=== PATIENT | male | born 1985 | race Caucasian/White ===

== ENCOUNTER 2018-09-19 22:41 | Emergency (ER) | payer SELFPAY ==
[~2018-09-19] VITALS: Ht 175.3 cm; Wt 96.2 kg
[2018-09-19 22:45] VITALS: BP 158/87
[2018-09-19] MEDS ORDERED: HYDR-3164 PO (23:58)
[2018-09-19] MEDS ORDERED: MUPI22OI2 TP (23:58)
[2018-09-19] MEDS ORDERED: CLIN300C8 PO (23:58)
--- NOTE | 2018-09-19 23:58 | PHYS DOC ---
Past Medical History Past Medical History: Other Additional Past Medical Histor: MRSA, staff infection of hand and right calf in past. Past Surgical History: Other Additional Past Surgical Histo: MRSA from Right calf debriedment Alcohol Use: Rarely Drug Use: Marijuana Adult General Chief Complaint Chief Complaint: ELBOW PROBLEM [facility] HPI Patient is a 33 year old [f__sex] who presents with [] Review of Systems Review of Systems Constitutional: Denies fever or chills [] Eyes: Denies change in visual acuity, redness, or eye pain [] HENT: Denies nasal congestion or sore throat [] Respiratory: Denies cough or shortness of breath [] Cardiovascular: No additional information not addressed in HPI [] GI: Denies abdominal pain, nausea, vomiting, bloody stools or diarrhea [] : Denies dysuria or hematuria [] Musculoskeletal: Denies back pain or joint pain [] Integument: Denies rash or skin lesions [] Neurologic: Denies headache, focal weakness or sensory changes [] Endocrine: Denies polyuria or polydipsia [] All other systems were reviewed and found to be within normal limits, except as documented in this note. Current Medications Current Medications Current Medications Medications (Trade) Dose Ordered Sig/John Start Time Stop Time Status Last Admin Dose Admin Acetaminophen/ Hydrocodone Bitart (Lortab 5/325) 1 tab 1X ONCE 09/20/18 00:00 09/20/18 00:01 DC Clindamycin HCl (Cleocin) 300 mg 1X ONCE 09/20/18 00:00 09/20/18 00:01 DC Neomycin/ Polymyxin/ Bacitracin (Triple Antibiotic Ointment) 1 pkt 1X ONCE 09/20/18 00:00 09/20/18 00:01 DC Allergies Allergies Allergies Coded Allergies Type Severity Reaction Last Updated Verified No Known Drug Allergies 09/19/18 No Physical Exam Physical Exam Constitutional: Well developed, well nourished, no acute distress, non-toxic appearance. [] HENT: Normocephalic, atraumatic, bilateral external ears normal, oropharynx moist, no oral exudates, nose normal. [] Eyes: PERRLA, EOMI, conjunctiva normal, no discharge. [] Neck: Normal range of motion, no tenderness, supple, no stridor. [] Cardiovascular:Heart rate regular rhythm, no murmur [] Lungs & Thorax: Bilateral breath sounds clear to auscultation [] Abdomen: Bowel sounds normal, soft, no tenderness, no masses, no pulsatile masses. [] Skin: Warm, dry, no erythema, no rash. [] Back: No tenderness, no CVA tenderness. [] Extremities: No tenderness, no cyanosis, no clubbing, ROM intact, no edema. [] Neurologic: Alert and oriented X 3, normal motor function, normal sensory function, no focal deficits noted. [] Psychologic: Affect normal, judgement normal, mood normal. [] Current Patient Data Vital Signs Vital Signs Date Time Temp Pulse Resp B/P (MAP) Pulse Ox O2 Delivery O2 Flow Rate FiO2 09/19/18 22:45 98.3 107 18 158/87 (110) 100 Room Air 98.3 EKG EKG [] Radiology/Procedures Radiology/Procedures [] Course & Med Decision Making Course & Med Decision Making Pertinent Labs and Imaging studies reviewed. (See chart for details) [] Dragon Disclaimer Dragon Disclaimer This electronic medical record was generated, in whole or in part, using a voice recognition dictation system. Departure Departure Impression: Primary Impression: Infection of left olecranon bursa Disposition: HOME, SELF-CARE Condition: STABLE Referrals: NO PCP (PCP) LAKEISHA BARRY MD Patient Instructions: Olecranon Bursitis, [id number] Scripts Hydrocodone/Apap 5-325 (NORCO 5-325 TABLET) 1 Each Tablet 1 TAB PO PRN Q6HRS PRN for PAIN, #14 TAB 0 Refills Prov: DANIEL KAPLAN DO 09/19/18 Mupirocin (MUPIROCIN OINTMENT) 22 Gm Oint...g. 1 PATO TP TID for WOUND CARE for 10 Days, #1 TUBE Prov: DANIEL KAPLAN DO 09/19/18 Clindamycin Hcl (CLINDAMYCIN HCL) 300 Mg Capsule 1 CAP PO TID for 7 Days, #21 CAP Prov: DANIEL KAPLAN DO 09/19/18 DANIEL KAPLAN DO Sep 19, 2018 23:58
[2018-09-20] MEDS ORDERED: CLINDAMYCIN HCL 150 MG CAPSULE. PO ONE
[2018-09-20] MEDS ORDERED: NEOMY/BACITR/POLYMYXIN OINT PACKET. TP ONE
[2018-09-20] MEDS ORDERED: HYDROcodone/APAP 5/325MG 1 TAB TABLET PO ONE
--- NOTE | 2018-09-20 02:30 | RAD ---
Indication: Elbow redness, swelling TECHNIQUE: 3 views of the right elbow COMPARISON: None Findings/ impression: No acute fracture or dislocation. No joint effusion. Soft tissue swelling is seen overlying the posterior elbow this may be secondary to cellulitis. Electronically signed by: Shivam Jha DO (09/20/2018 2:28 AM) [facility]
== END 2018-09-20 00:34 | disposition home or self-care (01) ==
LOC: ER 22:41
DX: M70.21 Olecranon bursitis, right elbow (principal)
CPT/HCPCS: 73080; 99284

== ENCOUNTER 2018-10-24 18:00 | Inpatient (IN) | payer SELFPAY ==
[~2018-10-24] VITALS: Ht 172.7 cm; Wt 90.3 kg
[~2018-10-24 18:00] MED LIST: CLIN300C8 PO; HYDR-3164 PO; MUPI22OI2 TP
[2018-10-24] MEDS ORDERED: PIPERACILLIN/TAZOBACTAM 3.375 GM in IV NORMAL SALINE 50ML 50 ML IV ONE (18:30)
[2018-10-24] MEDS ORDERED: PIP/TAZO PER PHARMACY MC PRN ×2 (18:30)
[2018-10-24] MEDS ORDERED: IV NORMAL SALINE 500ML BAG 500 ML IV ONE (18:30)
[2018-10-24] MEDS ORDERED: ACETAMINOPHEN 500 MG TABLET PO ONE (18:30)
[2018-10-24] MEDS ORDERED: IV NORMAL SALINE 1000ML BAG 1,000 ML IV ONE ×2 (18:30)
[2018-10-24 18:52] LABS: BASO % 0 % (0-3); EOS % 0 % (0-3); HEMATOCRIT 37.8 % (39.0-53.0); HEMOGLOBIN 13.1 g/dL (13.0-17.5); LYMPH # 1.2 x10^3/uL (1.0-4.8); LYMPH % 5 % (24-48); MEAN CORPUSCULAR HEMOGLOBIN 31 pg (25-35); MEAN CORPUSCULAR HGB CONC 35 g/dL (31-37); MEAN CORPUSCULAR VOLUME 91 fL (79-100); MONO # 1.5 x10^3/uL (0.0-1.1); MONO % 6 % (0-9); NEUT % 89 % (31-73); PLATELET COUNT 174 x10^3/uL (140-400); RED BLOOD COUNT 4.17 x10^6/uL (4.30-5.70); RED CELL DISTRIBUTION WIDTH 13.3 % (11.5-14.5); WHITE BLOOD COUNT 24.8 x10^3/uL (4.0-11.0)
[2018-10-24] MEDS ORDERED: VANCOMYCIN 2 GM in IV NORMAL SALINE 500ML BAG 500 ML IV ONE (19:00)
[2018-10-24] MEDS ORDERED: MORPHINE SULFATE 4 MG/ML VIAL. IV ONE (19:00)
[2018-10-24 19:10] LABS: CALCIUM 8.5 mg/dL (8.5-10.1); CREATININE 1.1 mg/dL (0.7-1.3); GFR 76.2; POTASSIUM 3.4 mmol/L (3.5-5.1)
[2018-10-24] MEDS ORDERED: IOHEXOL 300 MG/ML 100ML VIAL. IV ONE (19:15)
[2018-10-24 19:16] LABS: ALBUMIN 2.5 g/dL (3.4-5.0); ALBUMIN/GLOBULIN RATIO 0.6 (1.0-1.7); TOTAL PROTEIN 6.6 g/dL (6.4-8.2)
[2018-10-24] MEDS ORDERED: ONDANSETRON PF 4 MG/2 ML VIAL. IV ONE (19:30)
[2018-10-24] MEDS ORDERED: CONTRAST GIVEN. MC PRN (19:30)
--- NOTE | 2018-10-24 19:54 | RAD ---
CT SCAN OF THE ABDOMEN AND PELVIS WITH IV CONTRAST. History: Abdominal pain Comparison:None. Procedure: Contiguous axial images of the abdomen and pelvis were performed after the administration of 75 cc of Isovue 370 IV contrast and without oral contrast. CT Abdomen with contrast: Findings: Liver: Unremarkable Spleen: Unremarkable Pancreas: Unremarkable Adrenal Glands: Unremarkable Kidneys: Unremarkable There is no mass or lymphadenopathy. There is no free air. There is no free fluid. Impression: No acute findings. End Impression CT Pelvis with Contrast: Findings: The appendix is normal. There is prevertebral soft tissue edema. There is mild wall thickening of the sigmoid colon without surrounding inflammation. There is mild wall thickening of the urinary bladder. There is no free fluid. There is no lymphadenopathy. There is soft tissue edema seen to the right of the rectum and anal canal and the right and in the right parasagittal perineum. Impression: 1. Soft tissue edema on the right from the parasagittal perineum on the right upward along the right renal canal and rectum. There is no focal abscess seen. 2. Presacral soft tissue edema. 3. Mild wall thickening of the sigmoid colon could be secondary to inflammatory or infectious colitis. 4. Mild wall thickening of the urinary bladder could be urinary tract infection. PQRS Compliance Statement: One or more of the following individualized dose reduction techniques were utilized for this examination: 1. Automated exposure control 2. Adjustment of the mA and/or kV according to patient size 3. Use of iterative reconstruction technique Electronically signed by: Jesus Alberto Taylor III, MD (10/24/2018 7:51 PM) [facility]
[2018-10-24] MEDS ORDERED: ONDANSETRON PF 4 MG/2 ML VIAL. IV PRN ×2 (20:15→21:45)
[2018-10-24 20:51] LABS: % LYMPHS 6 % (24-48); % MONOS 6 % (0-10); % SEGS 88 % (35-66)
[2018-10-24 20:52] LABS: ANISOCYTOSIS SLIGHT; PLATELET CLUMP PRESENT; PLT ESTIMATE ADEQUATE (ADEQUATE); POLYCHROMASIA SLIGHT; SCHISTOCYTES OCC
[2018-10-24 20:53] LABS: BILIRUBIN,URINE NEGATIVE (NEG); CLARITY,URINE CLEAR; COLOR,URINE YELLOW; NITRITE,URINE NEGATIVE (NEG); PH,URINE 6.5; PROTEIN,URINE 30 mg/dL (NEG-TRACE)
[2018-10-24 21:00] LABS: BACTERIA,URINE FEW /HPF (0-FEW); SQUAMOUS EPITHELIAL CELL,UR OCC /LPF
[2018-10-24] MEDS: IV NORMAL SALINE 1000ML BAG 1,000 ML IV SCH (21:16)
[2018-10-24] MEDS: VANCOMYCIN PER PHARMACY MC PRN (21:26)
--- NOTE | 2018-10-24 21:29 | NUR ---
Pharmacy Vancomycin Dosing Note S:Consulted to monitor and dose vancomycin started 10/24/18. O:RICHAR CASPER is a 33 year old M with Abscess Sepsis . Height: 5 feet, 9 inches Weight: 90.164176 kg [place] Body Weight: 206.40 Adjusted Body Weight: 159.84 Dosing Weight: Actual Other Antibiotics: ZOSYN 10/24 - LABS: Last BUN: 11 Last Creatinine: 1.1 Creatinine Clearance: >100 mL/min Last WBC: 24.8 Last Procalcitonin: - Tmax (past 24 hours): 101.4 Microbiology: PENDING 10/24 I/O: Drug Levels: Last level: on at Last dose given 10/24/18 at 1930 Vancomycin Dosing: Loading Dose: 2000 mg x1 Dosing Weight: Actual Target Trough: 15-20 A: Based on: WEIGHT, CRCL>100 P: 1. INITIATE Vancomycin 1250 mg IV q12h AFTER 2000 MG LOADING DOSE 2. Follow up Trough level on 10/26/18 at 0700 3. Pharmacy will continue to monitor, follow and adjust therapy as needed. VERONICA FORBES [facility], 10/24/18 [id number]
[2018-10-24] MEDS ORDERED: PHENYLEPH/MINERAL OIL/PETROLAT RECTAL OINTMENT 57GM TUBE. RC PRN (21:30)
[2018-10-24] MEDS ORDERED: KETOROLAC 30 MG/ML VIAL. IV ONE (21:30)
[2018-10-24] MEDS ORDERED: POTASSIUM CHLORIDE 20 MEQ TABLET.ER. PO ONE (21:30)
[2018-10-24] MEDS ORDERED: NICOTINE 21MG PATCH. TD PRN (21:45)
--- NOTE | 2018-10-24 21:47 | PHYS DOC ---
Past Medical History Past Medical History: Other Additional Past Medical Histor: MRSA, staff infection of hand and right calf in past. Past Surgical History: Other Additional Past Surgical Histo: MRSA from Right calf debriedment Alcohol Use: Rarely Drug Use: Marijuana Adult General Chief Complaint Chief Complaint: FEVER [facility] HPI Patient is a 33 year old male presenting with buttock pain and fever sharp severe radiates diffusely because nausea no abdominal pain symptoms are moderate worsening with time onset 2 days ago no trauma has not used drugs in 15 years she tells me Review of Systems Review of Systems Constitutional: Eyes: Denies change in visual acuity, redness, or eye pain [] HENT: Denies nasal congestion or sore throat [] Respiratory: Denies cough or shortness of breath [] Cardiovascular: No additional information not addressed in HPI [] GI: pain [] Integument: Neurologic: Denies headache, focal weakness or sensory changes [] Endocrine: Denies polyuria or polydipsia [] All other systems were reviewed and found to be within normal limits, except as documented in this note. Current Medications Current Medications Current Medications Medications (Trade) Dose Ordered Sig/John Start Time Stop Time Status Last Admin Dose Admin Acetaminophen (Tylenol) 1,000 mg 1X ONCE 10/24/18 18:30 10/24/18 18:31 DC 10/24/18 19:12 1,000 MG Info (CONTRAST GIVEN -- Rx MONITORING) 1 each PRN DAILY PRN 10/24/18 19:30 10/26/18 19:29 Iohexol (Omnipaque 300 Mg/ml) 75 ml 1X ONCE 10/24/18 19:15 10/24/18 19:19 DC 10/24/18 19:37 75 ML Morphine Sulfate (Morphine Sulfate) 4 mg PRN Q2HR PRN 10/24/18 20:15 10/25/18 20:14 Ondansetron HCl (Zofran) 4 mg PRN Q8HRS PRN 10/24/18 20:15 10/25/18 20:14 Piperacillin Sod/ Tazobactam Sod (Zosyn Per Pharmacy) 1 each PRN DAILY PRN 10/24/18 18:30 Piperacillin Sod/ Tazobactam Sod 3.375 gm/Sodium Chloride 50 ml @ 100 mls/hr 1X ONCE 10/24/18 18:30 10/24/18 18:59 DC 10/24/18 18:45 100 MLS/HR Sodium Chloride 1,000 ml @ 125 mls/hr Q8H 10/24/18 20:09 10/25/18 20:08 10/24/18 21:16 125 MLS/HR Vancomycin HCl (Vanco Per Pharmacy) 1 each PRN DAILY PRN 10/24/18 18:30 10/24/18 21:26 1 EACH Vancomycin HCl 2 gm/Sodium Chloride 500 ml @ 250 mls/hr 1X ONCE 10/24/18 19:00 10/24/18 20:59 DC 10/24/18 19:34 250 MLS/HR Allergies Allergies Allergies Coded Allergies Type Severity Reaction Last Updated Verified No Known Drug Allergies 09/19/18 No Physical Exam Physical Exam Constitutional: Well developed, well nourished, no acute distress, non-toxic appearance. [] HENT: Normocephalic, atraumatic, bilateral external ears normal, oropharynx moist, no oral exudates, nose normal. [] Eyes: PERRLA, EOMI, conjunctiva normal, no discharge. [] Neck: Normal range of motion, no tenderness, supple, no stridor. [] Cardiovascular: Tachycardic no definite murmurs Lungs & Thorax: Bilateral breath sounds clear to auscultation [] Abdomen: Bowel sounds normal, soft, no tenderness, no masses, no pulsatile masses. [] Skin: There is a large area probably 15 cm are bigger from the superior cleft of the buttock unilaterally indurated very tender warm there is some drainage noted it does appear to light just adjacent to involve the edge of the anus and it extends just to the perineum but really no significant induration of the perineum itself no scrotal tenderness Back: No tenderness, no CVA tenderness. [] Extremities: No tenderness, no cyanosis, no clubbing, ROM intact, no edema. [] Neurologic: Alert and oriented X 3, normal motor function, normal sensory function, no focal deficits noted. [] Psychologic: Affect normal, judgement normal, mood normal. [] Current Patient Data Vital Signs Vital Signs Date Time Temp Pulse Resp B/P (MAP) Pulse Ox O2 Delivery O2 Flow Rate FiO2 10/24/18 20:30 121 18 116/63 (80) 99 10/24/18 19:33 Room Air 10/24/18 18:13 101.4 101.4 Lab Values Laboratory Tests Test 10/24/18 18:33 White Blood Count 24.8 x10^3/uL (4.0-11.0) H Red Blood Count 4.17 x10^6/uL (4.30-5.70) L Hemoglobin 13.1 g/dL (13.0-17.5) Hematocrit 37.8 % (39.0-53.0) L Mean Corpuscular Volume 91 fL (79-100) Mean Corpuscular Hemoglobin 31 pg (25-35) Mean Corpuscular Hemoglobin Concent 35 g/dL (31-37) Red Cell Distribution Width 13.3 % (11.5-14.5) Platelet Count 174 x10^3/uL (140-400) Neutrophils (%) (Auto) 89 % (31-73) H Lymphocytes (%) (Auto) 5 % (24-48) L Monocytes (%) (Auto) 6 % (0-9) Eosinophils (%) (Auto) 0 % (0-3) Basophils (%) (Auto) 0 % (0-3) Neutrophils # (Auto) 22.0 x10^3uL (1.8-7.7) H Lymphocytes # (Auto) 1.2 x10^3/uL (1.0-4.8) Monocytes # (Auto) 1.5 x10^3/uL (0.0-1.1) H Eosinophils # (Auto) 0.0 x10^3/uL (0.0-0.7) Basophils # (Auto) 0.0 x10^3/uL (0.0-0.2) Segmented Neutrophils % 88 % (35-66) H Lymphocytes % 6 % (24-48) L Monocytes % 6 % (0-10) Platelet Estimate Adequate (ADEQUATE) Platelet Clumps, EDTA Present Polychromasia Slight Anisocytosis Slight Schistocytes Occ Sodium Level 133 mmol/L (136-145) L Potassium Level 3.4 mmol/L (3.5-5.1) L Chloride Level 97 mmol/L (98-107) L Carbon Dioxide Level 26 mmol/L (21-32) Anion Gap 10 (6-14) Blood Urea Nitrogen 11 mg/dL (8-26) Creatinine 1.1 mg/dL (0.7-1.3) Estimated GFR (Cockcroft-Gault) 76.2 BUN/Creatinine Ratio 10 (6-20) Glucose Level 142 mg/dL (70-99) H Lactic Acid Level 1.7 mmol/L (0.4-2.0) Calcium Level 8.5 mg/dL (8.5-10.1) Total Bilirubin 1.0 mg/dL (0.2-1.0) Aspartate Amino Transferase (AST) 34 U/L (15-37) Alanine Aminotransferase (ALT) 32 U/L (16-63) Alkaline Phosphatase 117 U/L (46-116) H Total Protein 6.6 g/dL (6.4-8.2) Albumin 2.5 g/dL (3.4-5.0) L Albumin/Globulin Ratio 0.6 (1.0-1.7) L Laboratory Tests 10/24/18 18:33 Laboratory Tests 10/24/18 18:33 EKG EKG []EKG shows a sinus tachycardia rate 1:30 no acute ischemic changes noted Radiology/Procedures Radiology/Procedures [] Impressions: Impression: 1. Soft tissue edema on the right from the parasagittal perineum on the right upward along the right renal canal and rectum. There is no focal abscess seen. 2. Presacral soft tissue edema. 3. Mild wall thickening of the sigmoid colon could be secondary to inflammatory or infectious colitis. 4. Mild wall thickening of the urinary bladder could be urinary tract infection. RS Compliance Statement: One or more of the following individualized dose reduction techniques were utilized for this examination: 1. Automated exposure control 2. Adjustment of the mA and/or kV according to patient size 3. Use of iterative reconstruction technique Electronically signed by: Mara Barnes III, MD (10/24/2018 7:51 PM) [facility] DICTATED and SIGNED BY: MARA BARNES III, MD DATE: 10/24/181950 Course & Med Decision Making Course & Med Decision Making Pertinent Labs and Imaging studies reviewed. (See chart for details) []Lactic acid normal blood pressure remained stable in the emergency room patient did have sores criteria and sepsis we gave 30 ml/kg iv fluids (including the abx ), we give broad-spectrum antibiotics. CT scan showed no definite abscess. Due to clinical picture did speak with Dr. Eubanks on the telephone plan for nothing by mouth after midnight. I spoke with Dr. lassiter plan to admit to the hospital for his service for treatment of severe cellulitis. At this point in time there is no clinical evidence of [place] gangrene. Nikita Disclaimer Rud[place]on Disclaimer This electronic medical record was generated, in whole or in part, using a voice recognition dictation system. Departure Departure Impression: Primary Impression: Cellulitis Additional Impression: Sepsis Disposition: ADMITTED INPATIENT Admitting Physician: EVITA Condition: STABLE Referrals: NO PCP (PCP) Date and Time of Reassessment Date: Oct 24, 2018 Time: 20:10 Fluid Challenge Is the fluid challenge complet: No IBW Target Volume Used: No BMI > 30: No Vital Signs Vital Signs: Vital Signs Date Time Temp Pulse Resp B/P (MAP) Pulse Ox O2 Delivery O2 Flow Rate FiO2 10/24/18 20:30 121 18 116/63 (80) 99 10/24/18 19:33 Room Air 10/24/18 18:13 101.4 101.4 Temperature Source: Oral Respirations Respiratory Effort: Normal Cardiovascular Pulse Rhythm: Regular Heart: Not examined Lung Sounds Breath Sounds: Clear Capillary Refil Capillary Refill: Rt Hand < 3 seconds Peripheral Pulse Pulse Location: Radial Pulse Strength: Normal (2+) Pulse Assessment Method: Monitor Integumentary Skin: Warm, Dry Skin Moisture: Moist Problem Qualifiers FLORECITA JERNIGAN MD Oct 24, 2018 21:47
[2018-10-24 22:22] VITALS: BP 112/44
--- NOTE | 2018-10-24 23:07 | PDOC1 ---
History and Physical Date of Admission Date of Admission DATE: 10/24/18 TIME: 23:06 Identification/Chief Complaint Chief Complaint buttock pain Source Source: Chart review, Patient History of Present Illness History of Present Illness Mr. Sharp, is a 33 year old male presenting with 3 days of worsening buttock pain. he thought that the pain would go away and has now worsened. and now he had a fever and now the pain is sharp and severe. 10/10 with movement and radiates diffusely. because nausea no abdominal pain symptoms are moderate worsening. he has been sober for some time, prior IV drug use. 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 Past Medical History Cardiovascular: No pertinent hx Pulmonary: No pertinent hx Psych: Anxiety, Addictions, Other Rheumatologic: No pertinent hx Infectious disease: No pertinent hx Past Surgical History Past Surgical History: No pertinent history Family History Family History: No Significant Social History Smoke: <1 pack per day ALCOHOL: social Drugs: None Current Medications Current Medications Current Medications Sodium Chloride 1,000 ml @ 1,000 mls/hr 1X ONCE IV Last administered on 10/24/18at 18:40; Start 10/24/18 at 18:30; Stop 10/24/18 at 19:29; Status DC Sodium Chloride 1,000 ml @ 1,000 mls/hr 1X ONCE IV Last administered on 10/24/18at 18:44; Start 10/24/18 at 18:30; Stop 10/24/18 at 19:29; Status DC Piperacillin Sod/ Tazobactam Sod (Zosyn Per Pharmacy) 1 each PRN DAILY PRN MC SEE COMMENTS; Start 10/24/18 at 18:30; Status UNV Sodium Chloride 500 ml @ 500 mls/hr 1X ONCE IV Last administered on 10/24/18at 19:13; Start 10/24/18 at 18:30; Stop 10/24/18 at 19:29; Status DC Piperacillin Sod/ Tazobactam Sod (Zosyn Per Pharmacy) 1 each PRN DAILY PRN MC SEE COMMENTS; Start 10/24/18 at 18:30 Vancomycin HCl (Vanco Per Pharmacy) 1 each PRN DAILY PRN MC SEE COMMENTS Last administered on 10/24/18at 21:26; Start 10/24/18 at 18:30 Acetaminophen (Tylenol) 1,000 mg 1X ONCE PO Last administered on 10/24/18 19:12; Start 10/24/18 at 18:30; Stop 10/24/18 at 18:31; Status DC Vancomycin HCl 2 gm/Sodium Chloride 500 ml @ 250 mls/hr 1X ONCE IV Last administered on 10/24/18at 19:34; Start 10/24/18 at 19:00; Stop 10/24/18 at 20:59; Status DC Piperacillin Sod/ Tazobactam Sod 3.375 gm/Sodium Chloride 50 ml @ 100 mls/hr 1X ONCE IV Last administered on 10/24/18at 18:45; Start 10/24/18 at 18:30; Stop 10/24/18 at 18:59; Status DC Morphine Sulfate (Morphine Sulfate) 6 mg 1X ONCE IV Last administered on 10/24/18 19:12; Start 10/24/18 at 19:00; Stop 10/24/18 at 19:01; Status DC Iohexol (Omnipaque 300 Mg/ml) 75 ml 1X ONCE IV Last administered on 10/24/18at 19:37; Start 10/24/18 at 19:15; Stop 10/24/18 at 19:19; Status DC Info (CONTRAST GIVEN -- Rx MONITORING) 1 each PRN DAILY PRN MC SEE COMMENTS; Start 10/24/18 at 19:30; Stop 10/26/18 at 19:29 Ondansetron HCl (Zofran) 4 mg 1X ONCE IV Last administered on 10/24/18at 19:33; Start 10/24/18 at 19:30; Stop 10/24/18 at 19:31; Status DC Ondansetron HCl (Zofran) 4 mg PRN Q8HRS PRN IV NAUSEA/VOMITING; Start 10/24/18 at 20:15; Stop 10/24/18 at 21:43; Status DC Morphine Sulfate (Morphine Sulfate) 4 mg PRN Q2HR PRN IV PAIN; Start 10/24/18 at 20:15; Stop 10/25/18 at 20:14 Sodium Chloride 1,000 ml @ 125 mls/hr Q8H IV Last administered on 10/24/18at 21:16; Start 10/24/18 at 20:09; Stop 10/25/18 at 20:08 Piperacillin Sod/ Tazobactam Sod 3.375 gm/Sodium Chloride 50 ml @ 100 mls/hr Q6HRS IV ; Start 10/25/18 at 00:00 Vancomycin HCl 1.25 gm/Sodium Chloride 250 ml @ 167 mls/hr Q12H IV ; Start at 07:30 Vancomycin HCl (Vancomycin Trough Level) 1 each 1X ONCE MC ; Start 10/26/18 at 07:00; Stop 10/26/18 at 07:01 Oxycodone/ Acetaminophen (Percocet 7.5/ 325) 1 tab PRN Q4HRS PRN PO PAIN; Start 10/24/18 at 21:30 Potassium Chloride (Klor-Con) 20 meq 1X ONCE PO ; Start 10/24/18 at 21:30; Stop 10/24/18 at 21:32; Status DC Ketorolac Tromethamine (Toradol 30mg Vial) 30 mg 1X ONCE IV ; Start 10/24/18 at 21:30; Stop 10/24/18 at 21:32; Status DC Phenyleph/Shark Oil/Min Oil/Petrol (Preparation H) 1 luiz PRN QID PRN RC RECTAL PAIN; Start 10/24/18 at 21:30 Nicotine Polacrilex (Nicorette Gum) 1 each PRN Q1HR PRN BC SMOKING CESSATION; Start 10/24/18 at 21:45 Nicotine (Nicoderm Cq 21mg) 1 patch PRN DAILY PRN TD SMOKING CESSATION; Start 10/24/18 at 21:45 Docusate Sodium (Colace) 100 mg DAILY PO ; Start 10/25/18 at 09:00 Polyethylene Glycol (miraLAX PACKET) 17 gm DAILY PO ; Start 10/25/18 at 09:00 Ondansetron HCl (Zofran) 4 mg PRN Q8HRS PRN IV NAUSEA/VOMITING; Start 10/24/18 at 21:45 Diphenhydramine HCl (Benadryl) 25 mg PRN QHS PRN PO INSOMNIA; Start 10/24/18 at 21:45 Active Scripts Active [place] 5-325 Tablet (Acetaminophen/Hydrocodone Bitart) 1 Each Tablet 1 Tab PO PRN Q6HRS PRN Mupirocin Ointment (Mupirocin) 22 Gm Oint...g. 1 Luiz TP TID 10 Days Clindamycin Hcl 300 Mg Capsule 1 Cap PO TID 7 Days Allergies Allergies: Coded Allergies: No Known Drug Allergies (Unverified , 09/19/18) ROS General: YES: Chills, Fatigue, Malaise PSYCHOLOGICAL ROS: YES: Irritablity, Sleep disturbances; No: Anxiety, Behavioral Disorder, Concentration difficultie, Decreased libido, Depression, Disorientation, Hallucinations, Hostility, Memory difficulties, Mood Swings, Obsessive thoughts, Physical abuse, Sexual abuse, Suicidal ideation, Other Eyes: No Blurry vision, No Decreased vision, No Double vision, No Dry eyes, No Excessive tearing, No Eye Pain, No Itchy Eyes, No Loss of vision, No Photophobia, No Scotomata, No Uses contacts, No Uses glasses, No Other HEENT: No: Heacaches, Visual Changes, Hearing change, Nasal congestion, Nasal discharge, Oral lesions, Sinus pain, Sore Throat, Epistaxis, Sneezing, Snoring, Tinnitus, Vertigo, Vocal changes, Other Respiratory: No: Cough, Hemoptysis, Orthopnea, Pleuritic Pain, Shortness of breath, SOB with excertion, Sputum Changes, Stridor, Tachypnea, Wheezing, Other Cardiovascular: yes Edema (occassional feet); No Chest Pain, No Palpitations, No Orthopnea, No Paroxysmal Noc. Dyspnea, No Lt Headedness, No Other Gastrointestinal: Yes Nausea, Yes Abdominal Pain Genitourinary: No Dysuria, No Frequency, No Incontinence, No Hematuria, No Retention, No Discharge, No Urgency, No Pain, No Flank Pain, No Other, No , No , No , No , No , No , No Musculoskeletal: No Gait Disturbance, No Joint Pain, No Joint Stiffness, No Joint Swelling, No Muscle Pain, No Muscular Weakness, No Pain In:, No Swelling In:, No Other Neurological: No Behavorial Changes, No Bowel/Bladder ControlChng, No Confusion, No Dizziness, No Gait Disturbance, No Headaches, No Impaired Coord/balance, No Memory Loss, No Numbness/Tingling, No Seizures, No Speech Problems, No Tremors, No Visual Changes, No Weakness, No Other Skin: No Dry Skin, No Eczema, No Hair Changes, No Lumps, No Mole Changes, No Mottling, No Nail Changes, No Pruritus, No Rash, No Skin Lesion Changes, No Other, No Acne Physical Exam General: Alert, Oriented X3, Cooperative, mild distress HEENT: Atraumatic, PERRLA, Mucous membr. moist/pink Lungs: Normal air movement Heart: S1S2, no gallops, no murmurs Abdomen: Normal bowel sounds, Soft Rectal Exam: other (perirectal swelling, and induration tenderness to right medical cheeck, he can barely move to the side due to the pain) Extremities: No clubbing, No cyanosis, Normal pulses, Other (Tr pedal edema) Skin: No rashes, No significant lesion Neuro: Normal gait, Normal speech, Normal tone, Sensation intact, Reflexes 2+ Psych/Mental Status: Mental status NL Vitals Vitals Vital Signs Date Time Temp Pulse Resp B/P (MAP) Pulse Ox O2 Delivery O2 Flow Rate FiO2 10/24/18 22:22 99.4 119 20 112/44 (66) 98 Room Air 99.4 Labs Labs Laboratory Tests Test 10/24/18 18:33 10/24/18 20:44 White Blood Count 24.8 x10^3/uL (4.0-11.0) Red Blood Count 4.17 x10^6/uL (4.30-5.70) Hemoglobin 13.1 g/dL (13.0-17.5) Hematocrit 37.8 % (39.0-53.0) Mean Corpuscular Volume 91 fL (79-100) Mean Corpuscular Hemoglobin 31 pg (25-35) Mean Corpuscular Hemoglobin Concent 35 g/dL (31-37) Red Cell Distribution Width 13.3 % (11.5-14.5) Platelet Count 174 x10^3/uL (140-400) Neutrophils (%) (Auto) 89 % (31-73) Lymphocytes (%) (Auto) 5 % (24-48) Monocytes (%) (Auto) 6 % (0-9) Eosinophils (%) (Auto) 0 % (0-3) Basophils (%) (Auto) 0 % (0-3) Neutrophils # (Auto) 22.0 x10^3uL (1.8-7.7) Lymphocytes # (Auto) 1.2 x10^3/uL (1.0-4.8) Monocytes # (Auto) 1.5 x10^3/uL (0.0-1.1) Eosinophils # (Auto) 0.0 x10^3/uL (0.0-0.7) Basophils # (Auto) 0.0 x10^3/uL (0.0-0.2) Segmented Neutrophils % 88 % (35-66) Lymphocytes % 6 % (24-48) Monocytes % 6 % (0-10) Platelet Estimate Adequate (ADEQUATE) Platelet Clumps, EDTA Present Polychromasia Slight Anisocytosis Slight Schistocytes Occ Sodium Level 133 mmol/L (136-145) Potassium Level 3.4 mmol/L (3.5-5.1) Chloride Level 97 mmol/L (98-107) Carbon Dioxide Level 26 mmol/L (21-32) Anion Gap 10 (6-14) Blood Urea Nitrogen 11 mg/dL (8-26) Creatinine 1.1 mg/dL (0.7-1.3) Estimated GFR (Cockcroft-Gault) 76.2 BUN/Creatinine Ratio 10 (6-20) Glucose Level 142 mg/dL (70-99) Lactic Acid Level 1.7 mmol/L (0.4-2.0) Calcium Level 8.5 mg/dL (8.5-10.1) Total Bilirubin 1.0 mg/dL (0.2-1.0) Aspartate Amino Transf (AST/SGOT) 34 U/L (15-37) Alanine Aminotransferase (ALT/SGPT) 32 U/L (16-63) Alkaline Phosphatase 117 U/L (46-116) Total Protein 6.6 g/dL (6.4-8.2) Albumin 2.5 g/dL (3.4-5.0) Albumin/Globulin Ratio 0.6 (1.0-1.7) Urine Color Yellow Urine Clarity Clear Urine pH 6.5 Urine Specific [place] >=1.030 Urine Protein 30 mg/dL (NEG-TRACE) Urine Glucose (UA) Negative mg/dL (NEG) Urine Ketones (Stick) Negative mg/dL (NEG) Urine Blood Trace (NEG) Urine Nitrite Negative (NEG) Urine Bilirubin Negative (NEG) Urine Urobilinogen Dipstick 1.0 mg/dL (0.2 mg/dL) Urine Leukocyte Esterase Negative (NEG) Urine RBC 1-2 /HPF (0-2) Urine WBC 1-4 /HPF (0-4) Urine Squamous Epithelial Cells Occ /LPF Urine Bacteria Few /HPF (0-FEW) Laboratory Tests Test 10/24/18 18:33 10/24/18 20:44 White Blood Count 24.8 x10^3/uL (4.0-11.0) Red Blood Count 4.17 x10^6/uL (4.30-5.70) Hemoglobin 13.1 g/dL (13.0-17.5) Hematocrit 37.8 % (39.0-53.0) Mean Corpuscular Volume 91 fL (79-100) Mean Corpuscular Hemoglobin 31 pg (25-35) Mean Corpuscular Hemoglobin Concent 35 g/dL (31-37) Red Cell Distribution Width 13.3 % (11.5-14.5) Platelet Count 174 x10^3/uL (140-400) Neutrophils (%) (Auto) 89 % (31-73) Lymphocytes (%) (Auto) 5 % (24-48) Monocytes (%) (Auto) 6 % (0-9) Eosinophils (%) (Auto) 0 % (0-3) Basophils (%) (Auto) 0 % (0-3) Neutrophils # (Auto) 22.0 x10^3uL (1.8-7.7) Lymphocytes # (Auto) 1.2 x10^3/uL (1.0-4.8) Monocytes # (Auto) 1.5 x10^3/uL (0.0-1.1) Eosinophils # (Auto) 0.0 x10^3/uL (0.0-0.7) Basophils # (Auto) 0.0 x10^3/uL (0.0-0.2) Segmented Neutrophils % 88 % (35-66) Lymphocytes % 6 % (24-48) Monocytes % 6 % (0-10) Platelet Estimate Adequate (ADEQUATE) Platelet Clumps, EDTA Present Polychromasia Slight Anisocytosis Slight Schistocytes Occ Sodium Level 133 mmol/L (136-145) Potassium Level 3.4 mmol/L (3.5-5.1) Chloride Level 97 mmol/L (98-107) Carbon Dioxide Level 26 mmol/L (21-32) Anion Gap 10 (6-14) Blood Urea Nitrogen 11 mg/dL (8-26) Creatinine 1.1 mg/dL (0.7-1.3) Estimated GFR (Cockcroft-Gault) 76.2 BUN/Creatinine Ratio 10 (6-20) Glucose Level 142 mg/dL (70-99) Lactic Acid Level 1.7 mmol/L (0.4-2.0) Calcium Level 8.5 mg/dL (8.5-10.1) Total Bilirubin 1.0 mg/dL (0.2-1.0) Aspartate Amino Transf (AST/SGOT) 34 U/L (15-37) Alanine Aminotransferase (ALT/SGPT) 32 U/L (16-63) Alkaline Phosphatase 117 U/L (46-116) Total Protein 6.6 g/dL (6.4-8.2) Albumin 2.5 g/dL (3.4-5.0) Albumin/Globulin Ratio 0.6 (1.0-1.7) Urine Color Yellow Urine Clarity Clear Urine pH 6.5 Urine Specific [place] >=1.030 Urine Protein 30 mg/dL (NEG-TRACE) Urine Glucose (UA) Negative mg/dL (NEG) Urine Ketones (Stick) Negative mg/dL (NEG) Urine Blood Trace (NEG) Urine Nitrite Negative (NEG) Urine Bilirubin Negative (NEG) Urine Urobilinogen Dipstick 1.0 mg/dL (0.2 mg/dL) Urine Leukocyte Esterase Negative (NEG) Urine RBC 1-2 /HPF (0-2) Urine WBC 1-4 /HPF (0-4) Urine Squamous Epithelial Cells Occ /LPF Urine Bacteria Few /HPF (0-FEW) VTE Prophylaxis Ordered VTE Prophylaxis Devices: Yes VTE Pharmacological Prophylaxi: No Assessment/Plan Assessment/Plan sepsis cellulitis perirectal abcess tobacco use disorder severe malnutrition, with BMI 30 edema to feet at times, check echo admit YOSHI AVILA MD Oct 24, 2018 23:07
[2018-10-24] MEDS: oxyCODONE/APAP 7.5/325 1 TAB TABLET PO PRN (23:20)
[2018-10-24] MEDS: PIPERACILLIN/TAZOBACTAM 3.375 GM in IV NORMAL SALINE 50ML 50 ML IV SCH (23:20)
[2018-10-25] MEDS: MORPHINE SULFATE 4 MG/ML VIAL. IV PRN ×6 (00:37→20:04)
[2018-10-25] MEDS: NICOTINE POLACRILEX 2MG GUM PACKAGE of 12. BC PRN ×2 (01:39→11:58)
[2018-10-25 03:42] VITALS: BP 104/62
[2018-10-25] MEDS: IV NORMAL SALINE 1000ML BAG 1,000 ML IV SCH ×2 (04:03→12:09)
[2018-10-25 04:13] LABS: BASO # 0.1 x10^3/uL (0.0-0.2); BASO % 0 % (0-3); EOS # 0.1 x10^3/uL (0.0-0.7); EOS % 0 % (0-3); HEMATOCRIT 32.7 % (39.0-53.0); HEMOGLOBIN 11.3 g/dL (13.0-17.5); LYMPH # 1.7 x10^3/uL (1.0-4.8); LYMPH % 9 % (24-48); MEAN CORPUSCULAR HEMOGLOBIN 32 pg (25-35); MEAN CORPUSCULAR HGB CONC 35 g/dL (31-37); MEAN CORPUSCULAR VOLUME 92 fL (79-100); MONO # 1.6 x10^3/uL (0.0-1.1); MONO % 9 % (0-9); NEUT # 15.4 x10^3uL (1.8-7.7); NEUT % 82 % (31-73); PLATELET COUNT 158 x10^3/uL (140-400); RED BLOOD COUNT 3.57 x10^6/uL (4.30-5.70); RED CELL DISTRIBUTION WIDTH 13.4 % (11.5-14.5); WHITE BLOOD COUNT 18.8 x10^3/uL (4.0-11.0)
[2018-10-25] MEDS: oxyCODONE/APAP 7.5/325 1 TAB TABLET PO PRN (04:19)
[2018-10-25 04:43] LABS: CALCIUM 7.8 mg/dL (8.5-10.1); CREATININE 1.2 mg/dL (0.7-1.3); GFR 68.9; POTASSIUM 3.4 mmol/L (3.5-5.1)
[2018-10-25] MEDS: PIPERACILLIN/TAZOBACTAM 3.375 GM in IV NORMAL SALINE 50ML 50 ML IV SCH ×3 (05:43→19:13)
[2018-10-25 07:45] VITALS: BP 98/50
--- NOTE | 2018-10-25 08:53 | NUR ---
SW following pt for anticipated dc needs. Chart reviewed. Pt is from home and is self pay. No discharge recommendation noted at this time. Will continue to evaluate dc needs.
[2018-10-25] MEDS: POLYETHYLENE GLYCOL 3350 17 GM PACKET. PO SCH (08:57)
[2018-10-25] MEDS: DOCUSATE SODIUM 100 MG CAPSULE. PO SCH (08:57)
[2018-10-25] MEDS: VANCOMYCIN 1.25 GM in IV NORMAL SALINE 250ML 250 ML IV SCH ×2 (08:58→20:05)
--- NOTE | 2018-10-25 09:03 | PDOC2 ---
GI CONSULT Reason For Consult: Colitis, proctitis HPI: HPI: 33 y/o male admitted through ER w/ right buttock pain x 3-4 days. Similar issue in the past, thinks was treated w/ antibiotics. Has noted blood coming from skin int he area. Had one loose stool yesterday. Tried leftover Lortab from a previous shoulder injury. Labs noted WBC 24.8 (now 18.8), Hgb 13.1 (now 11.3). On CT: soft tissue edema on the right from the parasagittal perineum on the right upward along the right renal canal and rectum, presacral soft tissue edema, mild wall thickening of the sigmoid colon, and mild wall thickening of the urinary bladder. Denies reflux/heartburn, dysphagia, n/v, diarrhea, constipation, melena, and hematochezia. Prior to admission was not eating well for 2-3 days - attributes lack of appetite to fever and having buttock pain too intense to move. Currently has some right-sided abdominal discomfort. No previous EGD or colonoscopy. H/o Hep C - says has not pursued treatment due to lack of insurance. S/p cholecystectomy. No pancreas or PUD history. Asked about NSAID use - "yeah, I guess." Has asked RN to bring scheduled pain meds, has been NPO, surgical consult pending. PMH: PMH: MRSA, depression/anxiety, Hep C tonsillectomy Social History: Smoke: <1 pack per day ALCOHOL: occassional Drugs: Marijuana, Other (h/o IVDU) ROS: GEN: +fevers HEENT: Denies blurred vision, sore throat CV: Denies chest pain RESP: Denies shortness of air, cough GI: Per HPI : Denies hematuria, dysuria ENDO: Denies weight changes NEURO: Denies confusion, dizziness MSK: Denies weakness, joint pain/swelling SKIN: Denies jaundice, pruritus Vitals: Vitals: Vital Signs Date Time Temp Pulse Resp B/P (MAP) Pulse Ox O2 Delivery O2 Flow Rate FiO2 10/25/18 07:45 99.1 104 18 98/50 (66) 98 Room Air 99.1 Labs: Labs: Laboratory Tests Test 10/24/18 18:33 10/24/18 20:44 10/25/18 03:45 White Blood Count 24.8 x10^3/uL (4.0-11.0) 18.8 x10^3/uL (4.0-11.0) Red Blood Count 4.17 x10^6/uL (4.30-5.70) 3.57 x10^6/uL (4.30-5.70) Hemoglobin 13.1 g/dL (13.0-17.5) 11.3 g/dL (13.0-17.5) Hematocrit 37.8 % (39.0-53.0) 32.7 % (39.0-53.0) Mean Corpuscular Volume 91 fL (79-100) 92 fL (79-100) Mean Corpuscular Hemoglobin 31 pg (25-35) 32 pg (25-35) Mean Corpuscular Hemoglobin Concent 35 g/dL (31-37) 35 g/dL (31-37) Red Cell Distribution Width 13.3 % (11.5-14.5) 13.4 % (11.5-14.5) Platelet Count 174 x10^3/uL (140-400) 158 x10^3/uL (140-400) Neutrophils (%) (Auto) 89 % (31-73) 82 % (31-73) Lymphocytes (%) (Auto) 5 % (24-48) 9 % (24-48) Monocytes (%) (Auto) 6 % (0-9) 9 % (0-9) Eosinophils (%) (Auto) 0 % (0-3) 0 % (0-3) Basophils (%) (Auto) 0 % (0-3) 0 % (0-3) Neutrophils # (Auto) 22.0 x10^3uL (1.8-7.7) 15.4 x10^3uL (1.8-7.7) Lymphocytes # (Auto) 1.2 x10^3/uL (1.0-4.8) 1.7 x10^3/uL (1.0-4.8) Monocytes # (Auto) 1.5 x10^3/uL (0.0-1.1) 1.6 x10^3/uL (0.0-1.1) Eosinophils # (Auto) 0.0 x10^3/uL (0.0-0.7) 0.1 x10^3/uL (0.0-0.7) Basophils # (Auto) 0.0 x10^3/uL (0.0-0.2) 0.1 x10^3/uL (0.0-0.2) Segmented Neutrophils % 88 % (35-66) Lymphocytes % 6 % (24-48) Monocytes % 6 % (0-10) Platelet Estimate Adequate (ADEQUATE) Platelet Clumps, EDTA Present Polychromasia Slight Anisocytosis Slight Schistocytes Occ Sodium Level 133 mmol/L (136-145) 139 mmol/L (136-145) Potassium Level 3.4 mmol/L (3.5-5.1) 3.4 mmol/L (3.5-5.1) Chloride Level 97 mmol/L (98-107) 104 mmol/L (98-107) Carbon Dioxide Level 26 mmol/L (21-32) 27 mmol/L (21-32) Anion Gap 10 (6-14) 8 (6-14) Blood Urea Nitrogen 11 mg/dL (8-26) 11 mg/dL (8-26) Creatinine 1.1 mg/dL (0.7-1.3) 1.2 mg/dL (0.7-1.3) Estimated GFR (Cockcroft-Gault) 76.2 68.9 BUN/Creatinine Ratio 10 (6-20) Glucose Level 142 mg/dL (70-99) 111 mg/dL (70-99) Lactic Acid Level 1.7 mmol/L (0.4-2.0) Calcium Level 8.5 mg/dL (8.5-10.1) 7.8 mg/dL (8.5-10.1) Total Bilirubin 1.0 mg/dL (0.2-1.0) Aspartate Amino Transf (AST/SGOT) 34 U/L (15-37) Alanine Aminotransferase (ALT/SGPT) 32 U/L (16-63) Alkaline Phosphatase 117 U/L (46-116) Total Protein 6.6 g/dL (6.4-8.2) Albumin 2.5 g/dL (3.4-5.0) Albumin/Globulin Ratio 0.6 (1.0-1.7) Urine Color Yellow Urine Clarity Clear Urine pH 6.5 Urine Specific [place] >=1.030 Urine Protein 30 mg/dL (NEG-TRACE) Urine Glucose (UA) Negative mg/dL (NEG) Urine Ketones (Stick) Negative mg/dL (NEG) Urine Blood Trace (NEG) Urine Nitrite Negative (NEG) Urine Bilirubin Negative (NEG) Urine Urobilinogen Dipstick 1.0 mg/dL (0.2 mg/dL) Urine Leukocyte Esterase Negative (NEG) Urine RBC 1-2 /HPF (0-2) Urine WBC 1-4 /HPF (0-4) Urine Squamous Epithelial Cells Occ /LPF Urine Bacteria Few /HPF (0-FEW) Allergies: Coded Allergies: No Known Drug Allergies (Unverified , 09/19/18) Medications: Current Medications Medications (Trade) Dose Ordered Sig/John Route PRN Reason Start Time Stop Time Status Last Admin Dose Admin Sodium Chloride 1,000 ml @ 1,000 mls/hr 1X ONCE IV 10/24/18 18:30 10/24/18 19:29 DC 10/24/18 18:40 Sodium Chloride 1,000 ml @ 1,000 mls/hr 1X ONCE IV 10/24/18 18:30 10/24/18 19:29 DC 10/24/18 18:44 Sodium Chloride 500 ml @ 500 mls/hr 1X ONCE IV 10/24/18 18:30 10/24/18 19:29 DC 10/24/18 19:13 Vancomycin HCl (Vanco Per Pharmacy) 1 each PRN DAILY PRN MC SEE COMMENTS 10/24/18 18:30 10/24/18 21:26 Acetaminophen (Tylenol) 1,000 mg 1X ONCE PO 10/24/18 18:30 10/24/18 18:31 DC 10/24/18 19:12 Vancomycin HCl 2 gm/Sodium Chloride 500 ml @ 250 mls/hr 1X ONCE IV 10/24/18 19:00 10/24/18 20:59 DC 10/24/18 19:34 Piperacillin Sod/ Tazobactam Sod 3.375 gm/Sodium Chloride 50 ml @ 100 mls/hr 1X ONCE IV 10/24/18 18:30 10/24/18 18:59 DC 10/24/18 18:45 Morphine Sulfate (Morphine Sulfate) 6 mg 1X ONCE IV 10/24/18 19:00 10/24/18 19:01 DC 10/24/18 19:12 Iohexol (Omnipaque 300 Mg/ml) 75 ml 1X ONCE IV 10/24/18 19:15 10/24/18 19:19 DC 10/24/18 19:37 Ondansetron HCl (Zofran) 4 mg 1X ONCE IV 10/24/18 19:30 10/24/18 19:31 DC 10/24/18 19:33 Morphine Sulfate (Morphine Sulfate) 4 mg PRN Q2HR PRN IV PAIN 10/24/18 20:15 10/25/18 20:14 10/25/18 08:15 Sodium Chloride 1,000 ml @ 125 mls/hr Q8H IV 10/24/18 20:09 10/25/18 20:08 10/25/18 04:03 Piperacillin Sod/ Tazobactam Sod 3.375 gm/Sodium Chloride 50 ml @ 100 mls/hr Q6HRS IV 10/25/18 00:00 10/25/18 05:43 Vancomycin HCl 1.25 gm/Sodium Chloride 250 ml @ 167 mls/hr Q12H IV 10/25/18 07:30 10/25/18 08:58 Oxycodone/ Acetaminophen (Percocet 7.5/ 325) 1 tab PRN Q4HRS PRN PO PAIN 10/24/18 21:30 10/25/18 04:19 Potassium Chloride (Klor-Con) 20 meq 1X ONCE PO 10/24/18 21:30 10/24/18 21:32 DC 10/24/18 23:20 Ketorolac Tromethamine (Toradol 30mg Vial) 30 mg 1X ONCE IV 10/24/18 21:30 10/24/18 21:32 DC 10/24/18 23:21 Nicotine Polacrilex (Nicorette Gum) 1 each PRN Q1HR PRN BC SMOKING CESSATION 10/24/18 21:45 10/25/18 01:39 Imaging: Imaging: Echocardiogram <Conclusion> Left ventricle systolic function is mildly impaired. The Ejection Fraction is 40-45%. There is mild global hypokinesis of the left ventricle. CT A/P Impression: 1. Soft tissue edema on the right from the parasagittal perineum on the right upward along the right renal canal and rectum. There is no focal abscess seen. 2. Presacral soft tissue edema. 3. Mild wall thickening of the sigmoid colon could be secondary to inflammatory or infectious colitis. 4. Mild wall thickening of the urinary bladder could be urinary tract infection. PE: GEN: NAD, resting, keeps eyes closed HEENT: Atraumatic, PERRL LUNGS: CTAB HEART: tachycardic ABD: soft, quiet BS, tender epigastrium around to RLQ EXTREMITY: No edema SKIN: clammy, warm NEURO/PSYCH: A & O 3 A/P: A/P: Buttock pain, abd pain, fever Leukocytosis, normocytic anemia Abnormal CT - ?perirectal abscess CRC screen - average risk S/p cholecystectomy H/o Hep C -- Had one loose stool yesterday - monitor this and abdominal discomfort. Will confirm Hep C. Await surgical thoughts. Other per Dr. Richards. AMINA ALEXANDER Oct 25, 2018 09:03
[2018-10-25] MEDS: VANCOMYCIN PER PHARMACY MC PRN (09:15)
--- NOTE | 2018-10-25 09:40 | CARD ---
MR#: [id number] Date of Study: 10/25/2018 Ordering Physician: YOSHI AVILA, Referring Physician: YOSHI AVILA Tech: Shazia Cruz RDCS APPROVED REPORT EXAM: Two-dimensional and M-mode echocardiogram with Doppler and color Doppler. Other Information Quality : Good INDICATION Peripheral Edema 2D DIMENSIONS RVDd2.4 (2.9-3.5cm)Left Atrium(2D)3.2 (1.6-4.0cm) IVSd0.9 (0.7-1.1cm)Aortic Root(2D)2.9 (2.0-3.7cm) LVDd5.3 (3.9-5.9cm)LVOT Diameter2.0 (1.8-2.4cm) PWd1.0 (0.7-1.1cm)LVDs4.4 (2.5-4.0cm) FS (%) 17.2 %SV49.0 ml LVEF(%)45.0 (>50%) Aortic Valve AoV Peak Tae.136.9cm/sAoV VTI21.2cm AO Peak GR.7.5mmHgLVOT Peak Tae.85.8cm/s LVOT VTI 12.87cmAO Mean GR.5mmHg CIERRA (VMAX)1.17ea9UMK (VTI)1.88cm2 Mitral Valve MV E Ldkmvuni33.3cm/sMV DECEL [id number] MV A Zfjfzzvc41.0cm/sMV [id number] E/A Ratio1.5MVA (PHT)3.92cm2 TDI E/Lateral E'6.2 Pulmonary Vein S1 Qtgaahaq88.8cm/sD2 Mnuzvzja42.6cm/s LEFT VENTRICLE The left ventricle is normal size. There is normal left ventricular wall thickness. Left ventricle sy stolic function is mildly impaired. The Ejection Fraction is 40-45%. There is mild global hypokinesis of the left ventricle. Transmitral Doppler flow pattern is Grade I-abnormal relaxation pattern. RIGHT VENTRICLE The right ventricle is normal size. The right ventricular systolic function is normal. ATRIA The left atrium size is normal. The right atrium size is normal. The interatrial septum is intact wit h no evidence for an atrial septal defect or patent foramen ovale as noted on 2-D or Doppler imaging. AORTIC VALVE The aortic valve is calcified but opens well. Doppler and Color Flow revealed no significant aortic r egurgitation. There is no significant aortic valvular stenosis. MITRAL VALVE The mitral valve is normal in structure and function. There is no evidence of mitral valve prolapse. There is no mitral valve stenosis. Doppler and Color-flow revealed trace to mild mitral regurgitation . TRICUSPID VALVE The tricuspid valve is normal in structure and function. Doppler and Color Flow revealed no tricuspid valve regurgitation noted. There is no tricuspid valve stenosis. PULMONIC VALVE Doppler and Color Flow revealed mild pulmonic valvular regurgitation. There is no pulmonic valvular s tenosis. GREAT VESSELS The aortic root is normal in size. The ascending aorta is normal in size. The IVC is normal in size a nd collapses >50% with inspiration. PERICARDIAL EFFUSION There is no evidence of significant pericardial effusion. Critical Notification Critical Value: No <Conclusion> Left ventricle systolic function is mildly impaired. The Ejection Fraction is 40-45%. There is mild global hypokinesis of the left ventricle. Signed by : Bharat Hood, Electronically Approved : 10/25/2018 09:39:30
[2018-10-25 11:04] VITALS: BP 124/73
--- NOTE | 2018-10-25 11:23 | PDOC2 ---
ALLISON HERNANDEZ [employer] 10/25/18 1123: CONSULT Date of Consult Date of Consult DATE: 10/25/18 TIME: 11:14 Reason for Consult Reason for Consult: perirectal abscess Referring Physician Referring Physician: ER Identification/Chief Complaint Chief Complaint buttock pain Source Source: Chart review, Patient History of Present Illness Reason for Visit: Repots 3 days of gluteal pain, drainage, and fevers. Reports severe pain to area. Denies any constipation or diarrhea. Does have a history of previous skin infections. Previous IV drug use. Denies currently Past Medical History Cardiovascular: No pertinent hx Pulmonary: No pertinent hx Psych: Anxiety, Addictions, Other Rheumatologic: No pertinent hx Infectious disease: No pertinent hx Past Surgical History Past Surgical History: No pertinent history Family History Family History: No Significant Social History <1 pack per day ALCOHOL: social Drugs: None Current Medications Current Medications Current Medications Sodium Chloride 1,000 ml @ 1,000 mls/hr 1X ONCE IV Last administered on 10/24/18at 18:40; Start 10/24/18 at 18:30; Stop 10/24/18 at 19:29; Status DC Sodium Chloride 1,000 ml @ 1,000 mls/hr 1X ONCE IV Last administered on 10/24/18at 18:44; Start 10/24/18 at 18:30; Stop 10/24/18 at 19:29; Status DC Piperacillin Sod/ Tazobactam Sod (Zosyn Per Pharmacy) 1 each PRN DAILY PRN MC SEE COMMENTS; Start 10/24/18 at 18:30; Status UNV Sodium Chloride 500 ml @ 500 mls/hr 1X ONCE IV Last administered on 10/24/18at 19:13; Start 10/24/18 at 18:30; Stop 10/24/18 at 19:29; Status DC Piperacillin Sod/ Tazobactam Sod (Zosyn Per Pharmacy) 1 each PRN DAILY PRN MC SEE COMMENTS; Start 10/24/18 at 18:30 Vancomycin HCl (Vanco Per Pharmacy) 1 each PRN DAILY PRN MC SEE COMMENTS Last administered on 10/25/18at 09:15; Start 10/24/18 at 18:30 Acetaminophen (Tylenol) 1,000 mg 1X ONCE PO Last administered on 10/24/18at 19:12; Start 10/24/18 at 18:30; Stop 10/24/18 at 18:31; Status DC Vancomycin HCl 2 gm/Sodium Chloride 500 ml @ 250 mls/hr 1X ONCE IV Last administered on 10/24/18at 19:34; Start 10/24/18 at 19:00; Stop 10/24/18 at 20:59; Status DC Piperacillin Sod/ Tazobactam Sod 3.375 gm/Sodium Chloride 50 ml @ 100 mls/hr 1X ONCE IV Last administered on 10/24/18at 18:45; Start 10/24/18 at 18:30; Stop 10/24/18 at 18:59; Status DC Morphine Sulfate (Morphine Sulfate) 6 mg 1X ONCE IV Last administered on 10/24/18at 19:12; Start 10/24/18 at 19:00; Stop 10/24/18 at 19:01; Status DC Iohexol (Omnipaque 300 Mg/ml) 75 ml 1X ONCE IV Last administered on 10/24/18at 19:37; Start 10/24/18 at 19:15; Stop 10/24/18 at 19:19; Status DC Info (CONTRAST GIVEN -- Rx MONITORING) 1 each PRN DAILY PRN MC SEE COMMENTS; Start 10/24/18 at 19:30; Stop 10/26/18 at 19:29 Ondansetron HCl (Zofran) 4 mg 1X ONCE IV Last administered on 10/24/18at 19:33; Start 10/24/18 at 19:30; Stop 10/24/18 at 19:31; Status DC Ondansetron HCl (Zofran) 4 mg PRN Q8HRS PRN IV NAUSEA/VOMITING; Start 10/24/18 at 20:15; Stop 10/24/18 at 21:43; Status DC Morphine Sulfate (Morphine Sulfate) 4 mg PRN Q2HR PRN IV PAIN Last administered on 10/25/18at 08:15; Start 10/24/18 at 20:15; Stop 10/25/18 at 20:14 Sodium Chloride 1,000 ml @ 125 mls/hr Q8H IV Last administered on 10/25/18at 04:03; Start 10/24/18 at 20:09; Stop 10/25/18 at 20:08 Piperacillin Sod/ Tazobactam Sod 3.375 gm/Sodium Chloride 50 ml @ 100 mls/hr Q6HRS IV Last administered on 10/25/18at 05:43; Start 10/25/18 at 00:00 Vancomycin HCl 1.25 gm/Sodium Chloride 250 ml @ 167 mls/hr Q12H IV Last administered on 10/25/18at 08:58; Start 10/25/18 at 07:30 Vancomycin HCl (Vancomycin Trough Level) 1 each 1X ONCE MC ; Start 10/26/18 at 07:00; Stop 10/26/18 at 07:01 Oxycodone/ Acetaminophen (Percocet 7.5/ 325) 1 tab PRN Q4HRS PRN PO PAIN Last administered on 10/25/18at 04:19; Start 10/24/18 at 21:30 Potassium Chloride (Klor-Con) 20 meq 1X ONCE PO Last administered on 10/24/18at 23:20; Start 10/24/18 at 21:30; Stop 10/24/18 at 21:32; Status DC Ketorolac Tromethamine (Toradol 30mg Vial) 30 mg 1X ONCE IV Last administered on 10/24/18at 23:21; Start 10/24/18 at 21:30; Stop 10/24/18 at 21:32; Status DC Phenyleph/Shark Oil/Min Oil/Petrol (Preparation H) 1 jose roberto PRN QID PRN RC RECTAL PAIN; Start 10/24/18 at 21:30 Nicotine Polacrilex (Nicorette Gum) 1 each PRN Q1HR PRN BC SMOKING CESSATION Last administered on 10/25/18at 01:39; Start 10/24/18 at 21:45 Nicotine (Nicoderm Cq 21mg) 1 patch PRN DAILY PRN TD SMOKING CESSATION; Start 10/24/18 at 21:45 Docusate Sodium (Colace) 100 mg DAILY PO ; Start 10/25/18 at 09:00 Polyethylene Glycol (miraLAX PACKET) 17 gm DAILY PO ; Start 10/25/18 at 09:00 Ondansetron HCl (Zofran) 4 mg PRN Q8HRS PRN IV NAUSEA/VOMITING; Start 10/24/18 at 21:45 Diphenhydramine HCl (Benadryl) 25 mg PRN QHS PRN PO INSOMNIA; Start 10/24/18 at 21:45 Lactobacillus Rhamnosus (Culturelle) 1 cap BID PO ; Start 10/25/18 at 11:00 Active Scripts Active Allergies Allergies: Coded Allergies: No Known Drug Allergies (Unverified , 09/19/18) ROS General: YES: Chills, Other (+ fevers ) PSYCHOLOGICAL ROS: No: Anxiety, Depression Eyes: No Blurry vision, No Double vision HEENT: No: Heacaches, Sore Throat Hematological and Lymphatic: No: Bleeding Problems, Blood Clots Respiratory: No: Cough, Shortness of breath Cardiovascular: No Chest Pain, No Palpitations Gastrointestinal: No Nausea, No Vomiting Genitourinary: No Dysuria, No Hematuria Musculoskeletal: No Joint Pain, No Muscular Weakness Neurological: No Impaired Coord/balance, No Numbness/Tingling Skin: Yes Other (see hpi) Physical Exam General: Alert, Oriented X3, Cooperative, No acute distress HEENT: PERRLA, Mucous membr. moist/pink Lungs: Clear to auscultation, Normal air movement Heart: Normal S1, Normal S2, Other (tachy) Abdomen: Soft, No tenderness Extremities: No clubbing, No cyanosis, Other (some erythema does extend down thigh ) Skin: Other (right perirectal area with erythema, induration, drainage purulent) Neuro: Normal gait, Normal speech Psych/Mental Status: Mental status NL, Mood NL MUSCULOSKELETAL: No deformity, No swelling Vitals VITALS Vital Signs Date Time Temp Pulse Resp B/P (MAP) Pulse Ox O2 Delivery O2 Flow Rate FiO2 10/25/18 11:04 102.5 109 17 124/73 (90) 97 Room Air 102.5 Labs Labs Laboratory Tests Test 10/24/18 18:33 10/24/18 20:44 10/25/18 03:45 White Blood Count 24.8 x10^3/uL (4.0-11.0) 18.8 x10^3/uL (4.0-11.0) Red Blood Count 4.17 x10^6/uL (4.30-5.70) 3.57 x10^6/uL (4.30-5.70) Hemoglobin 13.1 g/dL (13.0-17.5) 11.3 g/dL (13.0-17.5) Hematocrit 37.8 % (39.0-53.0) 32.7 % (39.0-53.0) Mean Corpuscular Volume 91 fL (79-100) 92 fL (79-100) Mean Corpuscular Hemoglobin 31 pg (25-35) 32 pg (25-35) Mean Corpuscular Hemoglobin Concent 35 g/dL (31-37) 35 g/dL (31-37) Red Cell Distribution Width 13.3 % (11.5-14.5) 13.4 % (11.5-14.5) Platelet Count 174 x10^3/uL (140-400) 158 x10^3/uL (140-400) Neutrophils (%) (Auto) 89 % (31-73) 82 % (31-73) Lymphocytes (%) (Auto) 5 % (24-48) 9 % (24-48) Monocytes (%) (Auto) 6 % (0-9) 9 % (0-9) Eosinophils (%) (Auto) 0 % (0-3) 0 % (0-3) Basophils (%) (Auto) 0 % (0-3) 0 % (0-3) Neutrophils # (Auto) 22.0 x10^3uL (1.8-7.7) 15.4 x10^3uL (1.8-7.7) Lymphocytes # (Auto) 1.2 x10^3/uL (1.0-4.8) 1.7 x10^3/uL (1.0-4.8) Monocytes # (Auto) 1.5 x10^3/uL (0.0-1.1) 1.6 x10^3/uL (0.0-1.1) Eosinophils # (Auto) 0.0 x10^3/uL (0.0-0.7) 0.1 x10^3/uL (0.0-0.7) Basophils # (Auto) 0.0 x10^3/uL (0.0-0.2) 0.1 x10^3/uL (0.0-0.2) Segmented Neutrophils % 88 % (35-66) Lymphocytes % 6 % (24-48) Monocytes % 6 % (0-10) Platelet Estimate Adequate (ADEQUATE) Platelet Clumps, EDTA Present Polychromasia Slight Anisocytosis Slight Schistocytes Occ Sodium Level 133 mmol/L (136-145) 139 mmol/L (136-145) Potassium Level 3.4 mmol/L (3.5-5.1) 3.4 mmol/L (3.5-5.1) Chloride Level 97 mmol/L (98-107) 104 mmol/L (98-107) Carbon Dioxide Level 26 mmol/L (21-32) 27 mmol/L (21-32) Anion Gap 10 (6-14) 8 (6-14) Blood Urea Nitrogen 11 mg/dL (8-26) 11 mg/dL (8-26) Creatinine 1.1 mg/dL (0.7-1.3) 1.2 mg/dL (0.7-1.3) Estimated GFR (Cockcroft-Gault) 76.2 68.9 BUN/Creatinine Ratio 10 (6-20) Glucose Level 142 mg/dL (70-99) 111 mg/dL (70-99) Lactic Acid Level 1.7 mmol/L (0.4-2.0) Calcium Level 8.5 mg/dL (8.5-10.1) 7.8 mg/dL (8.5-10.1) Total Bilirubin 1.0 mg/dL (0.2-1.0) Aspartate Amino Transf (AST/SGOT) 34 U/L (15-37) Alanine Aminotransferase (ALT/SGPT) 32 U/L (16-63) Alkaline Phosphatase 117 U/L (46-116) Total Protein 6.6 g/dL (6.4-8.2) Albumin 2.5 g/dL (3.4-5.0) Albumin/Globulin Ratio 0.6 (1.0-1.7) Urine Color Yellow Urine Clarity Clear Urine pH 6.5 Urine Specific [place] >=1.030 Urine Protein 30 mg/dL (NEG-TRACE) Urine Glucose (UA) Negative mg/dL (NEG) Urine Ketones (Stick) Negative mg/dL (NEG) Urine Blood Trace (NEG) Urine Nitrite Negative (NEG) Urine Bilirubin Negative (NEG) Urine Urobilinogen Dipstick 1.0 mg/dL (0.2 mg/dL) Urine Leukocyte Esterase Negative (NEG) Urine RBC 1-2 /HPF (0-2) Urine WBC 1-4 /HPF (0-4) Urine Squamous Epithelial Cells Occ /LPF Urine Bacteria Few /HPF (0-FEW) Laboratory Tests Test 6/3/19 18:33 10/24/18 20:44 10/25/18 03:45 White Blood Count 24.8 x10^3/uL (4.0-11.0) 18.8 x10^3/uL (4.0-11.0) Red Blood Count 4.17 x10^6/uL (4.30-5.70) 3.57 x10^6/uL (4.30-5.70) Hemoglobin 13.1 g/dL (13.0-17.5) 11.3 g/dL (13.0-17.5) Hematocrit 37.8 % (39.0-53.0) 32.7 % (39.0-53.0) Mean Corpuscular Volume 91 fL (79-100) 92 fL (79-100) Mean Corpuscular Hemoglobin 31 pg (25-35) 32 pg (25-35) Mean Corpuscular Hemoglobin Concent 35 g/dL (31-37) 35 g/dL (31-37) Red Cell Distribution Width 13.3 % (11.5-14.5) 13.4 % (11.5-14.5) Platelet Count 174 x10^3/uL (140-400) 158 x10^3/uL (140-400) Neutrophils (%) (Auto) 89 % (31-73) 82 % (31-73) Lymphocytes (%) (Auto) 5 % (24-48) 9 % (24-48) Monocytes (%) (Auto) 6 % (0-9) 9 % (0-9) Eosinophils (%) (Auto) 0 % (0-3) 0 % (0-3) Basophils (%) (Auto) 0 % (0-3) 0 % (0-3) Neutrophils # (Auto) 22.0 x10^3uL (1.8-7.7) 15.4 x10^3uL (1.8-7.7) Lymphocytes # (Auto) 1.2 x10^3/uL (1.0-4.8) 1.7 x10^3/uL (1.0-4.8) Monocytes # (Auto) 1.5 x10^3/uL (0.0-1.1) 1.6 x10^3/uL (0.0-1.1) Eosinophils # (Auto) 0.0 x10^3/uL (0.0-0.7) 0.1 x10^3/uL (0.0-0.7) Basophils # (Auto) 0.0 x10^3/uL (0.0-0.2) 0.1 x10^3/uL (0.0-0.2) Segmented Neutrophils % 88 % (35-66) Lymphocytes % 6 % (24-48) Monocytes % 6 % (0-10) Platelet Estimate Adequate (ADEQUATE) Platelet Clumps, EDTA Present Polychromasia Slight Anisocytosis Slight Schistocytes Occ Sodium Level 133 mmol/L (136-145) 139 mmol/L (136-145) Potassium Level 3.4 mmol/L (3.5-5.1) 3.4 mmol/L (3.5-5.1) Chloride Level 97 mmol/L (98-107) 104 mmol/L (98-107) Carbon Dioxide Level 26 mmol/L (21-32) 27 mmol/L (21-32) Anion Gap 10 (6-14) 8 (6-14) Blood Urea Nitrogen 11 mg/dL (8-26) 11 mg/dL (8-26) Creatinine 1.1 mg/dL (0.7-1.3) 1.2 mg/dL (0.7-1.3) Estimated GFR (Cockcroft-Gault) 76.2 68.9 BUN/Creatinine Ratio 10 (6-20) Glucose Level 142 mg/dL (70-99) 111 mg/dL (70-99) Lactic Acid Level 1.7 mmol/L (0.4-2.0) Calcium Level 8.5 mg/dL (8.5-10.1) 7.8 mg/dL (8.5-10.1) Total Bilirubin 1.0 mg/dL (0.2-1.0) Aspartate Amino Transf (AST/SGOT) 34 U/L (15-37) Alanine Aminotransferase (ALT/SGPT) 32 U/L (16-63) Alkaline Phosphatase 117 U/L (46-116) Total Protein 6.6 g/dL (6.4-8.2) Albumin 2.5 g/dL (3.4-5.0) Albumin/Globulin Ratio 0.6 (1.0-1.7) Urine Color Yellow Urine Clarity Clear Urine pH 6.5 Urine Specific [place] >=1.030 Urine Protein 30 mg/dL (NEG-TRACE) Urine Glucose (UA) Negative mg/dL (NEG) Urine Ketones (Stick) Negative mg/dL (NEG) Urine Blood Trace (NEG) Urine Nitrite Negative (NEG) Urine Bilirubin Negative (NEG) Urine Urobilinogen Dipstick 1.0 mg/dL (0.2 mg/dL) Urine Leukocyte Esterase Negative (NEG) Urine RBC 1-2 /HPF (0-2) Urine WBC 1-4 /HPF (0-4) Urine Squamous Epithelial Cells Occ /LPF Urine Bacteria Few /HPF (0-FEW) Assessment/Plan Assessment/Plan perirectal abscess plan I&D today CT results noted JJ WOOD MD 10/25/18 1140: CONSULT Assessment/Plan Assessment/Plan Pt seen and examined; 33 year old male with 3 day history or worsening gluteal pain, fever, chills; PMH/PSH/ROS/SH as above; exam: alert, unpleasant, appears uncomfortable, skin with multiple tattoos, areas of excoriation, lungs clear, heart RR and R, sizeable area of gluteal cellulitis, purulent drainage, tenderness, difficult to examine; A/P) Gluteal/perirectal abscess, to OR for I and D today ALLISON HERNANDEZ APRN Oct 25, 2018 11:23 JJ WOOD MD Oct 25, 2018 11:40
--- NOTE | 2018-10-25 11:28 | PDOC ---
[facility] PROGRESS NOTE Chief Complaint Chief Complaint Rectal abscess Colitis IV drug use Probable sepsis History of Present Illness History of Present Illness Mr. Sharp, is a 33 year old male presenting with 3 days of worsening buttock pain. he thought that the pain would go away and has now worsened. and now he had a fever and now the pain is sharp and severe. 10/10 with movement and radiates diffusely. because nausea no abdominal pain symptoms are moderate worsening. he has been sober for some time, prior IV drug use. Patient was seen and examined this morning He is a frail-appearing thin white male with multiple tattoos Appears to be in severe pain Discussed with case management and his nurse Vitals Vitals Vital Signs Date Time Temp Pulse Resp B/P (MAP) Pulse Ox O2 Delivery O2 Flow Rate FiO2 10/25/18 11:04 102.5 109 17 124/73 (90) 97 Room Air 102.5 Physical Exam General: moderate distress Heart: Normal S1, Normal S2, Other (tachy) Lungs: Clear Abdomen: Soft, Other (tender) Extremities: No clubbing, No cyanosis, Other (some erythema does extend down thigh ) Skin: Other (right perirectal area with erythema, induration, drainage purulent, many tattoos) Labs Labs: Laboratory Tests Test 10/24/18 18:33 10/24/18 20:44 10/25/18 03:45 White Blood Count 24.8 x10^3/uL (4.0-11.0) 18.8 x10^3/uL (4.0-11.0) Red Blood Count 4.17 x10^6/uL (4.30-5.70) 3.57 x10^6/uL (4.30-5.70) Hemoglobin 13.1 g/dL (13.0-17.5) 11.3 g/dL (13.0-17.5) Hematocrit 37.8 % (39.0-53.0) 32.7 % (39.0-53.0) Mean Corpuscular Volume 91 fL (79-100) 92 fL (79-100) Mean Corpuscular Hemoglobin 31 pg (25-35) 32 pg (25-35) Mean Corpuscular Hemoglobin Concent 35 g/dL (31-37) 35 g/dL (31-37) Red Cell Distribution Width 13.3 % (11.5-14.5) 13.4 % (11.5-14.5) Platelet Count 174 x10^3/uL (140-400) 158 x10^3/uL (140-400) Neutrophils (%) (Auto) 89 % (31-73) 82 % (31-73) Lymphocytes (%) (Auto) 5 % (24-48) 9 % (24-48) Monocytes (%) (Auto) 6 % (0-9) 9 % (0-9) Eosinophils (%) (Auto) 0 % (0-3) 0 % (0-3) Basophils (%) (Auto) 0 % (0-3) 0 % (0-3) Neutrophils # (Auto) 22.0 x10^3uL (1.8-7.7) 15.4 x10^3uL (1.8-7.7) Lymphocytes # (Auto) 1.2 x10^3/uL (1.0-4.8) 1.7 x10^3/uL (1.0-4.8) Monocytes # (Auto) 1.5 x10^3/uL (0.0-1.1) 1.6 x10^3/uL (0.0-1.1) Eosinophils # (Auto) 0.0 x10^3/uL (0.0-0.7) 0.1 x10^3/uL (0.0-0.7) Basophils # (Auto) 0.0 x10^3/uL (0.0-0.2) 0.1 x10^3/uL (0.0-0.2) Segmented Neutrophils % 88 % (35-66) Lymphocytes % 6 % (24-48) Monocytes % 6 % (0-10) Platelet Estimate Adequate (ADEQUATE) Platelet Clumps, EDTA Present Polychromasia Slight Anisocytosis Slight Schistocytes Occ Sodium Level 133 mmol/L (136-145) 139 mmol/L (136-145) Potassium Level 3.4 mmol/L (3.5-5.1) 3.4 mmol/L (3.5-5.1) Chloride Level 97 mmol/L (98-107) 104 mmol/L (98-107) Carbon Dioxide Level 26 mmol/L (21-32) 27 mmol/L (21-32) Anion Gap 10 (6-14) 8 (6-14) Blood Urea Nitrogen 11 mg/dL (8-26) 11 mg/dL (8-26) Creatinine 1.1 mg/dL (0.7-1.3) 1.2 mg/dL (0.7-1.3) Estimated GFR (Cockcroft-Gault) 76.2 68.9 BUN/Creatinine Ratio 10 (6-20) Glucose Level 142 mg/dL (70-99) 111 mg/dL (70-99) Lactic Acid Level 1.7 mmol/L (0.4-2.0) Calcium Level 8.5 mg/dL (8.5-10.1) 7.8 mg/dL (8.5-10.1) Total Bilirubin 1.0 mg/dL (0.2-1.0) Aspartate Amino Transf (AST/SGOT) 34 U/L (15-37) Alanine Aminotransferase (ALT/SGPT) 32 U/L (16-63) Alkaline Phosphatase 117 U/L (46-116) Total Protein 6.6 g/dL (6.4-8.2) Albumin 2.5 g/dL (3.4-5.0) Albumin/Globulin Ratio 0.6 (1.0-1.7) Urine Color Yellow Urine Clarity Clear Urine pH 6.5 Urine Specific Terry >=1.030 Urine Protein 30 mg/dL (NEG-TRACE) Urine Glucose (UA) Negative mg/dL (NEG) Urine Ketones (Stick) Negative mg/dL (NEG) Urine Blood Trace (NEG) Urine Nitrite Negative (NEG) Urine Bilirubin Negative (NEG) Urine Urobilinogen Dipstick 1.0 mg/dL (0.2 mg/dL) Urine Leukocyte Esterase Negative (NEG) Urine RBC 1-2 /HPF (0-2) Urine WBC 1-4 /HPF (0-4) Urine Squamous Epithelial Cells Occ /LPF Urine Bacteria Few /HPF (0-FEW) Review of Systems Review of Systems Complains of severe pain Assessment and Plan Assessmemt and Plan Rectal abscess Colitis Probable sepsis History of IV drug use Plan Consult GI and ID Broad-spectrum IV antibiotics including Zosyn and vancomycin for now Wound care Consult general surgery Home meds Full code DVT prophylaxis Comment Review of Relevant I have reviewed the following items janina (where applicable) has been applied. Labs Laboratory Tests Test 10/24/18 18:33 10/24/18 20:44 10/25/18 03:45 White Blood Count 24.8 x10^3/uL (4.0-11.0) 18.8 x10^3/uL (4.0-11.0) Red Blood Count 4.17 x10^6/uL (4.30-5.70) 3.57 x10^6/uL (4.30-5.70) Hemoglobin 13.1 g/dL (13.0-17.5) 11.3 g/dL (13.0-17.5) Hematocrit 37.8 % (39.0-53.0) 32.7 % (39.0-53.0) Mean Corpuscular Volume 91 fL (79-100) 92 fL (79-100) Mean Corpuscular Hemoglobin 31 pg (25-35) 32 pg (25-35) Mean Corpuscular Hemoglobin Concent 35 g/dL (31-37) 35 g/dL (31-37) Red Cell Distribution Width 13.3 % (11.5-14.5) 13.4 % (11.5-14.5) Platelet Count 174 x10^3/uL (140-400) 158 x10^3/uL (140-400) Neutrophils (%) (Auto) 89 % (31-73) 82 % (31-73) Lymphocytes (%) (Auto) 5 % (24-48) 9 % (24-48) Monocytes (%) (Auto) 6 % (0-9) 9 % (0-9) Eosinophils (%) (Auto) 0 % (0-3) 0 % (0-3) Basophils (%) (Auto) 0 % (0-3) 0 % (0-3) Neutrophils # (Auto) 22.0 x10^3uL (1.8-7.7) 15.4 x10^3uL (1.8-7.7) Lymphocytes # (Auto) 1.2 x10^3/uL (1.0-4.8) 1.7 x10^3/uL (1.0-4.8) Monocytes # (Auto) 1.5 x10^3/uL (0.0-1.1) 1.6 x10^3/uL (0.0-1.1) Eosinophils # (Auto) 0.0 x10^3/uL (0.0-0.7) 0.1 x10^3/uL (0.0-0.7) Basophils # (Auto) 0.0 x10^3/uL (0.0-0.2) 0.1 x10^3/uL (0.0-0.2) Segmented Neutrophils % 88 % (35-66) Lymphocytes % 6 % (24-48) Monocytes % 6 % (0-10) Platelet Estimate Adequate (ADEQUATE) Platelet Clumps, EDTA Present Polychromasia Slight Anisocytosis Slight Schistocytes Occ Sodium Level 133 mmol/L (136-145) 139 mmol/L (136-145) Potassium Level 3.4 mmol/L (3.5-5.1) 3.4 mmol/L (3.5-5.1) Chloride Level 97 mmol/L (98-107) 104 mmol/L (98-107) Carbon Dioxide Level 26 mmol/L (21-32) 27 mmol/L (21-32) Anion Gap 10 (6-14) 8 (6-14) Blood Urea Nitrogen 11 mg/dL (8-26) 11 mg/dL (8-26) Creatinine 1.1 mg/dL (0.7-1.3) 1.2 mg/dL (0.7-1.3) Estimated GFR (Cockcroft-Gault) 76.2 68.9 BUN/Creatinine Ratio 10 (6-20) Glucose Level 142 mg/dL (70-99) 111 mg/dL (70-99) Lactic Acid Level 1.7 mmol/L (0.4-2.0) Calcium Level 8.5 mg/dL (8.5-10.1) 7.8 mg/dL (8.5-10.1) Total Bilirubin 1.0 mg/dL (0.2-1.0) Aspartate Amino Transf (AST/SGOT) 34 U/L (15-37) Alanine Aminotransferase (ALT/SGPT) 32 U/L (16-63) Alkaline Phosphatase 117 U/L (46-116) Total Protein 6.6 g/dL (6.4-8.2) Albumin 2.5 g/dL (3.4-5.0) Albumin/Globulin Ratio 0.6 (1.0-1.7) Urine Color Yellow Urine Clarity Clear Urine pH 6.5 Urine Specific Terry >=1.030 Urine Protein 30 mg/dL (NEG-TRACE) Urine Glucose (UA) Negative mg/dL (NEG) Urine Ketones (Stick) Negative mg/dL (NEG) Urine Blood Trace (NEG) Urine Nitrite Negative (NEG) Urine Bilirubin Negative (NEG) Urine Urobilinogen Dipstick 1.0 mg/dL (0.2 mg/dL) Urine Leukocyte Esterase Negative (NEG) Urine RBC 1-2 /HPF (0-2) Urine WBC 1-4 /HPF (0-4) Urine Squamous Epithelial Cells Occ /LPF Urine Bacteria Few /HPF (0-FEW) Laboratory Tests Test 10/24/18 18:33 10/24/18 20:44 10/25/18 03:45 White Blood Count 24.8 x10^3/uL (4.0-11.0) 18.8 x10^3/uL (4.0-11.0) Red Blood Count 4.17 x10^6/uL (4.30-5.70) 3.57 x10^6/uL (4.30-5.70) Hemoglobin 13.1 g/dL (13.0-17.5) 11.3 g/dL (13.0-17.5) Hematocrit 37.8 % (39.0-53.0) 32.7 % (39.0-53.0) Mean Corpuscular Volume 91 fL (79-100) 92 fL (79-100) Mean Corpuscular Hemoglobin 31 pg (25-35) 32 pg (25-35) Mean Corpuscular Hemoglobin Concent 35 g/dL (31-37) 35 g/dL (31-37) Red Cell Distribution Width 13.3 % (11.5-14.5) 13.4 % (11.5-14.5) Platelet Count 174 x10^3/uL (140-400) 158 x10^3/uL (140-400) Neutrophils (%) (Auto) 89 % (31-73) 82 % (31-73) Lymphocytes (%) (Auto) 5 % (24-48) 9 % (24-48) Monocytes (%) (Auto) 6 % (0-9) 9 % (0-9) Eosinophils (%) (Auto) 0 % (0-3) 0 % (0-3) Basophils (%) (Auto) 0 % (0-3) 0 % (0-3) Neutrophils # (Auto) 22.0 x10^3uL (1.8-7.7) 15.4 x10^3uL (1.8-7.7) Lymphocytes # (Auto) 1.2 x10^3/uL (1.0-4.8) 1.7 x10^3/uL (1.0-4.8) Monocytes # (Auto) 1.5 x10^3/uL (0.0-1.1) 1.6 x10^3/uL (0.0-1.1) Eosinophils # (Auto) 0.0 x10^3/uL (0.0-0.7) 0.1 x10^3/uL (0.0-0.7) Basophils # (Auto) 0.0 x10^3/uL (0.0-0.2) 0.1 x10^3/uL (0.0-0.2) Segmented Neutrophils % 88 % (35-66) Lymphocytes % 6 % (24-48) Monocytes % 6 % (0-10) Platelet Estimate Adequate (ADEQUATE) Platelet Clumps, EDTA Present Polychromasia Slight Anisocytosis Slight Schistocytes Occ Sodium Level 133 mmol/L (136-145) 139 mmol/L (136-145) Potassium Level 3.4 mmol/L (3.5-5.1) 3.4 mmol/L (3.5-5.1) Chloride Level 97 mmol/L (98-107) 104 mmol/L (98-107) Carbon Dioxide Level 26 mmol/L (21-32) 27 mmol/L (21-32) Anion Gap 10 (6-14) 8 (6-14) Blood Urea Nitrogen 11 mg/dL (8-26) 11 mg/dL (8-26) Creatinine 1.1 mg/dL (0.7-1.3) 1.2 mg/dL (0.7-1.3) Estimated GFR (Cockcroft-Gault) 76.2 68.9 BUN/Creatinine Ratio 10 (6-20) Glucose Level 142 mg/dL (70-99) 111 mg/dL (70-99) Lactic Acid Level 1.7 mmol/L (0.4-2.0) Calcium Level 8.5 mg/dL (8.5-10.1) 7.8 mg/dL (8.5-10.1) Total Bilirubin 1.0 mg/dL (0.2-1.0) Aspartate Amino Transf (AST/SGOT) 34 U/L (15-37) Alanine Aminotransferase (ALT/SGPT) 32 U/L (16-63) Alkaline Phosphatase 117 U/L (46-116) Total Protein 6.6 g/dL (6.4-8.2) Albumin 2.5 g/dL (3.4-5.0) Albumin/Globulin Ratio 0.6 (1.0-1.7) Urine Color Yellow Urine Clarity Clear Urine pH 6.5 Urine Specific Terry >=1.030 Urine Protein 30 mg/dL (NEG-TRACE) Urine Glucose (UA) Negative mg/dL (NEG) Urine Ketones (Stick) Negative mg/dL (NEG) Urine Blood Trace (NEG) Urine Nitrite Negative (NEG) Urine Bilirubin Negative (NEG) Urine Urobilinogen Dipstick 1.0 mg/dL (0.2 mg/dL) Urine Leukocyte Esterase Negative (NEG) Urine RBC 1-2 /HPF (0-2) Urine WBC 1-4 /HPF (0-4) Urine Squamous Epithelial Cells Occ /LPF Urine Bacteria Few /HPF (0-FEW) Medications Current Medications Sodium Chloride 1,000 ml @ 1,000 mls/hr 1X ONCE IV Last administered on 10/24/18at 18:40; Start 10/24/18 at 18:30; Stop 10/24/18 at 19:29; Status DC Sodium Chloride 1,000 ml @ 1,000 mls/hr 1X ONCE IV Last administered on 10/24/18at 18:44; Start 10/24/18 at 18:30; Stop 10/24/18 at 19:29; Status DC Piperacillin Sod/ Tazobactam Sod (Zosyn Per Pharmacy) 1 each PRN DAILY PRN MC SEE COMMENTS; Start 10/24/18 at 18:30; Status UNV Sodium Chloride 500 ml @ 500 mls/hr 1X ONCE IV Last administered on 10/24/18at 19:13; Start 10/24/18 at 18:30; Stop 10/24/18 at 19:29; Status DC Piperacillin Sod/ Tazobactam Sod (Zosyn Per Pharmacy) 1 each PRN DAILY PRN MC SEE COMMENTS; Start 10/24/18 at 18:30 Vancomycin HCl (Vanco Per Pharmacy) 1 each PRN DAILY PRN MC SEE COMMENTS Last administered on 10/25/18at 09:15; Start 10/24/18 at 18:30 Acetaminophen (Tylenol) 1,000 mg 1X ONCE PO Last administered on 10/24/18at 19:12; Start 10/24/18 at 18:30; Stop 10/24/18 at 18:31; Status DC Vancomycin HCl 2 gm/Sodium Chloride 500 ml @ 250 mls/hr 1X ONCE IV Last administered on 10/24/18 19:34; Start 10/24/18 at 19:00; Stop 10/24/18 at 20:59; Status DC Piperacillin Sod/ Tazobactam Sod 3.375 gm/Sodium Chloride 50 ml @ 100 mls/hr 1X ONCE IV Last administered on 10/24/18at 18:45; Start 10/24/18 at 18:30; Stop 10/24/18 at 18:59; Status DC Morphine Sulfate (Morphine Sulfate) 6 mg 1X ONCE IV Last administered on 10/24/18 19:12; Start 10/24/18 at 19:00; Stop 10/24/18 at 19:01; Status DC Iohexol (Omnipaque 300 Mg/ml) 75 ml 1X ONCE IV Last administered on 10/24/18at 19:37; Start 10/24/18 at 19:15; Stop 10/24/18 at 19:19; Status DC Info (CONTRAST GIVEN -- Rx MONITORING) 1 each PRN DAILY PRN MC SEE COMMENTS; Start 10/24/18 at 19:30; Stop 10/26/18 at 19:29 Ondansetron HCl (Zofran) 4 mg 1X ONCE IV Last administered on 10/24/18at 19:33; Start 10/24/18 at 19:30; Stop 10/24/18 at 19:31; Status DC Ondansetron HCl (Zofran) 4 mg PRN Q8HRS PRN IV NAUSEA/VOMITING; Start 10/24/18 at 20:15; Stop 10/24/18 at 21:43; Status DC Morphine Sulfate (Morphine Sulfate) 4 mg PRN Q2HR PRN IV PAIN Last administered on 10/25/18 08:15; Start 10/24/18 at 20:15; Stop 10/25/18 at 20:14 Sodium Chloride 1,000 ml @ 125 mls/hr Q8H IV Last administered on 10/25/18at 04:03; Start 10/24/18 at 20:09; Stop 10/25/18 at 20:08 Piperacillin Sod/ Tazobactam Sod 3.375 gm/Sodium Chloride 50 ml @ 100 mls/hr Q6HRS IV Last administered on 10/25/18at 05:43; Start 10/25/18 at 00:00 Vancomycin HCl 1.25 gm/Sodium Chloride 250 ml @ 167 mls/hr Q12H IV Last administered on 10/25/18at 08:58; Start 10/25/18 at 07:30 Vancomycin HCl (Vancomycin Trough Level) 1 each 1X ONCE MC ; Start 10/26/18 at 07:00; Stop 10/26/18 at 07:01 Oxycodone/ Acetaminophen (Percocet 7.5/ 325) 1 tab PRN Q4HRS PRN PO PAIN Last administered on 10/25/18 04:19; Start 10/24/18 at 21:30 Potassium Chloride (Klor-Con) 20 meq 1X ONCE PO Last administered on 10/24/18at 23:20; Start 10/24/18 at 21:30; Stop 10/24/18 at 21:32; Status DC Ketorolac Tromethamine (Toradol 30mg Vial) 30 mg 1X ONCE IV Last administered on 10/24/18at 23:21; Start 10/24/18 at 21:30; Stop 10/24/18 at 21:32; Status DC Phenyleph/Shark Oil/Min Oil/Petrol (Preparation H) 1 jose roberto PRN QID PRN RC RECTAL PAIN; Start 10/24/18 at 21:30 Nicotine Polacrilex (Nicorette Gum) 1 each PRN Q1HR PRN BC SMOKING CESSATION Last administered on 10/25/18at 01:39; Start 10/24/18 at 21:45 Nicotine (Nicoderm Cq 21mg) 1 patch PRN DAILY PRN TD SMOKING CESSATION; Start 10/24/18 at 21:45 Docusate Sodium (Colace) 100 mg DAILY PO ; Start 10/25/18 at 09:00 Polyethylene Glycol (miraLAX PACKET) 17 gm DAILY PO ; Start 10/25/18 at 09:00 Ondansetron HCl (Zofran) 4 mg PRN Q8HRS PRN IV NAUSEA/VOMITING; Start 10/24/18 at 21:45 Diphenhydramine HCl (Benadryl) 25 mg PRN QHS PRN PO INSOMNIA; Start 10/24/18 at 21:45 Lactobacillus Rhamnosus (Culturelle) 1 cap BID PO ; Start 10/25/18 at 11:00 Active Scripts Active Vitals/I & O Vital Sign - Last 24 Hours 10/24/18 10/24/18 10/24/18 10/24/18 18:13 18:53 19:12 19:13 Temp 101.4 101.4 Pulse 134 126 126 Resp 20 18 20 18 B/P (MAP) 114/60 (78) 124/73 (90) 128/76 (93) Pulse Ox 98 97 99 99 O2 Delivery Room Air Room Air Room Air 10/24/18 10/24/18 10/24/18 10/24/18 19:33 20:30 21:04 22:22 Temp 100.0 99.4 100.0 99.4 Pulse 124 121 128 119 Resp 16 18 16 20 B/P (MAP) 146/72 (96) 116/63 (80) 112/44 (66) Pulse Ox 97 99 99 98 O2 Delivery Room Air Room Air 10/24/18 10/24/18 10/25/18 10/25/18 23:20 23:27 00:14 00:37 Resp 16 Pulse Ox 98 O2 Delivery Room Air Room Air Room Air Room Air 10/25/18 10/25/18 10/25/18 10/25/18 02:55 03:25 03:42 04:19 Temp 98.7 98.7 Pulse 98 Resp 16 16 16 15 B/P (MAP) 104/62 (76) Pulse Ox 98 98 98 98 O2 Delivery Room Air Room Air Room Air Room Air 10/25/18 10/25/18 10/25/18 05:15 07:45 11:04 Temp 99.1 102.5 99.1 102.5 Pulse 104 109 Resp 15 18 17 B/P (MAP) 98/50 (66) 124/73 (90) Pulse Ox 98 98 97 O2 Delivery Room Air Room Air Room Air Intake and Output 10/24/18 10/24/18 10/25/18 15:00 23:00 07:00 Intake Total 2550 ml 1700 ml Balance 2550 ml 1700 ml RACHELLE ROSS III DO Oct 25, 2018 11:28
[2018-10-25] MEDS: LACTOBACILLUS RHAMNOSUS GG 1 CAPSULE. PO SCH ×2 (11:39→22:25)
--- NOTE | 2018-10-25 12:13 | PDOC ---
Infectious Disease Note Vital Sign Vital Signs Vital Signs Date Time Temp Pulse Resp B/P (MAP) Pulse Ox O2 Delivery O2 Flow Rate FiO2 10/25/18 11:04 102.5 109 17 124/73 (90) 97 Room Air 102.5 Labs Lab Laboratory Tests Test 10/24/18 18:33 10/24/18 20:44 10/25/18 03:45 White Blood Count 24.8 x10^3/uL (4.0-11.0) 18.8 x10^3/uL (4.0-11.0) Red Blood Count 4.17 x10^6/uL (4.30-5.70) 3.57 x10^6/uL (4.30-5.70) Hemoglobin 13.1 g/dL (13.0-17.5) 11.3 g/dL (13.0-17.5) Hematocrit 37.8 % (39.0-53.0) 32.7 % (39.0-53.0) Mean Corpuscular Volume 91 fL (79-100) 92 fL (79-100) Mean Corpuscular Hemoglobin 31 pg (25-35) 32 pg (25-35) Mean Corpuscular Hemoglobin Concent 35 g/dL (31-37) 35 g/dL (31-37) Red Cell Distribution Width 13.3 % (11.5-14.5) 13.4 % (11.5-14.5) Platelet Count 174 x10^3/uL (140-400) 158 x10^3/uL (140-400) Neutrophils (%) (Auto) 89 % (31-73) 82 % (31-73) Lymphocytes (%) (Auto) 5 % (24-48) 9 % (24-48) Monocytes (%) (Auto) 6 % (0-9) 9 % (0-9) Eosinophils (%) (Auto) 0 % (0-3) 0 % (0-3) Basophils (%) (Auto) 0 % (0-3) 0 % (0-3) Neutrophils # (Auto) 22.0 x10^3uL (1.8-7.7) 15.4 x10^3uL (1.8-7.7) Lymphocytes # (Auto) 1.2 x10^3/uL (1.0-4.8) 1.7 x10^3/uL (1.0-4.8) Monocytes # (Auto) 1.5 x10^3/uL (0.0-1.1) 1.6 x10^3/uL (0.0-1.1) Eosinophils # (Auto) 0.0 x10^3/uL (0.0-0.7) 0.1 x10^3/uL (0.0-0.7) Basophils # (Auto) 0.0 x10^3/uL (0.0-0.2) 0.1 x10^3/uL (0.0-0.2) Segmented Neutrophils % 88 % (35-66) Lymphocytes % 6 % (24-48) Monocytes % 6 % (0-10) Platelet Estimate Adequate (ADEQUATE) Platelet Clumps, EDTA Present Polychromasia Slight Anisocytosis Slight Schistocytes Occ Sodium Level 133 mmol/L (136-145) 139 mmol/L (136-145) Potassium Level 3.4 mmol/L (3.5-5.1) 3.4 mmol/L (3.5-5.1) Chloride Level 97 mmol/L (98-107) 104 mmol/L (98-107) Carbon Dioxide Level 26 mmol/L (21-32) 27 mmol/L (21-32) Anion Gap 10 (6-14) 8 (6-14) Blood Urea Nitrogen 11 mg/dL (8-26) 11 mg/dL (8-26) Creatinine 1.1 mg/dL (0.7-1.3) 1.2 mg/dL (0.7-1.3) Estimated GFR (Cockcroft-Gault) 76.2 68.9 BUN/Creatinine Ratio 10 (6-20) Glucose Level 142 mg/dL (70-99) 111 mg/dL (70-99) Lactic Acid Level 1.7 mmol/L (0.4-2.0) Calcium Level 8.5 mg/dL (8.5-10.1) 7.8 mg/dL (8.5-10.1) Total Bilirubin 1.0 mg/dL (0.2-1.0) Aspartate Amino Transf (AST/SGOT) 34 U/L (15-37) Alanine Aminotransferase (ALT/SGPT) 32 U/L (16-63) Alkaline Phosphatase 117 U/L (46-116) Total Protein 6.6 g/dL (6.4-8.2) Albumin 2.5 g/dL (3.4-5.0) Albumin/Globulin Ratio 0.6 (1.0-1.7) Urine Color Yellow Urine Clarity Clear Urine pH 6.5 Urine Specific Josephine >=1.030 Urine Protein 30 mg/dL (NEG-TRACE) Urine Glucose (UA) Negative mg/dL (NEG) Urine Ketones (Stick) Negative mg/dL (NEG) Urine Blood Trace (NEG) Urine Nitrite Negative (NEG) Urine Bilirubin Negative (NEG) Urine Urobilinogen Dipstick 1.0 mg/dL (0.2 mg/dL) Urine Leukocyte Esterase Negative (NEG) Urine RBC 1-2 /HPF (0-2) Urine WBC 1-4 /HPF (0-4) Urine Squamous Epithelial Cells Occ /LPF Urine Bacteria Few /HPF (0-FEW) Objective Assessment fever leukocytosis right Perirectal abscess H/o MRSA Substance abuse Plan Plan of Care Cont Vanc and Zosyn UDS F/u labs and cults I and D today Thank you # [phone] JESSICA PRO MD Oct 25, 2018 12:13
[2018-10-25] MEDS ORDERED: BUPIVAC MPF-EPI 0.5%-1:200000 30 ML VIAL. ONE (14:35)
[2018-10-25] MEDS ORDERED: fentaNYL PF VIAL 100 MCG/2 ML VIAL ONE ×3 (15:17→17:33)
[2018-10-25] MEDS ORDERED: FAMOTIDINE 20 MG/2 ML VIAL ONE ×2 (15:17→15:20)
[2018-10-25] MEDS ORDERED: LIDOCAINE 2% PF 5 ML VIAL. ONE ×2 (15:17→15:20)
[2018-10-25] MEDS ORDERED: ONDANSETRON PF 4 MG/2 ML VIAL. ONE ×2 (15:17→15:20)
[2018-10-25] MEDS ORDERED: PROPOFOL 20 ML IV ONE (15:17)
[2018-10-25] MEDS ORDERED: SUCCINYLCHOLINE 200 MG/10 ML VIAL. ONE ×2 (15:17→15:20)
[2018-10-25] MEDS ORDERED: MIDAZOLAM HCL/PF 2 MG/2 ML VIAL. ONE ×2 (15:17→15:20)
[2018-10-25] MEDS ORDERED: DEXAMETHASONE SOD PHOS 4 MG/ML VIAL ONE ×2 (15:17→15:20)
--- NOTE | 2018-10-25 15:17 | NUR ---
Wound Care Attempted to see pt for wound care consultation, pt is upset and requesting pain medication, RN notified. Transportation at bedside to transport to OR for I&D of abscess, WCRNs will follow up tomorrow.
[2018-10-25] MEDS ORDERED: PROPOFOL 10 MG/ML (20ML) VIAL. IV ONE (15:20)
[2018-10-25 15:27] VITALS: BP 124/75
[2018-10-25] MEDS ORDERED: ROCURONIUM 50 MG/5 ML VIAL. ONE ×2 (16:30→17:00)
[2018-10-25] MEDS ORDERED: ESMOLOL 100 MG/10 ML VIAL. IVP ONE ×2 (16:38→17:00)
[2018-10-25] MEDS ORDERED: MORPHINE SULFATE 10 MG/ML VIAL. ONE ×2 (17:00)
--- NOTE | 2018-10-25 17:05 | PDOC4 ---
Operative Note Operative Note Operative Note: Preoperative Diagnosis: Right perirectal, gluteal abscess Postoperative Diagnosis: Same, extensive Procedure: Incision and drainage of extensive right perirectal, gluteal abscess, deep into muscle tissue Surgeon: Raimundo Anesthesia: Gen. EBL: 25 mL Specimen: Cultures to micrology Drains: None Complications: None Indication: The patient is a 33-year-old male presented with a large right perirectal, gluteal abscess. He was offered surgical treatment with incision and drainage. The risks of surgery were discussed which include bleeding, infection, recurrence, pain, scar tissue, potential need for additional surgery or procedure. He understands and like to proceed. Description: The patient was taken the operating room and placed supine on the operating table. Gen. anesthesia was performed. He was then placed in prone jackknife. Much of the entire right gluteus was erythemic and indurated. There was an area of greater fluctuance with a small amount of active drainage at the 3 o'clock position close to the anal canal. An incision was made in the fluctuant area and there was return of a large amount of purulent fluid. Cultures of this were obtained and sent to microbiology. With a finger the abscess cavity was dissected digitally. The entire involvement of the abscess was quite large and tracked both superiorly and inferiorly. In addition the abscess extended very deeply into the deep subcutaneous tissue, muscle, and close to the pelvic bony structures. It seemed to be adjacent to the rectum however showed no clear evidence of rectal involvement. A separate counter incision was made along the right superior aspect of the gluteus in an area of extension in that direction. Efforts were made to fully free up all loculations and define the extent of the abscess. The entire abscess cavity was then i rrigated with sterile saline. Several blood vessels were controlled with cautery. Hemostasis was good and the wound was then packed with Kerlix gauze. A sterile dressing was then applied. JJ WOOD MD Oct 25, 2018 17:05
[2018-10-25] MEDS ORDERED: oxyCODONE/APAP 5/325 1 TAB TABLET PO PRN (17:15)
[2018-10-25] MEDS: fentaNYL PF VIAL 100 MCG/2 ML VIAL IV PRN ×2 (17:35→17:45)
[2018-10-25] MEDS ORDERED: PROCHLORPERAZINE 10 MG/2 ML VIAL. IV PRN (17:45)
[2018-10-25] MEDS ORDERED: ONDANSETRON PF 4 MG/2 ML VIAL. IV PRN (17:45)
[2018-10-25] MEDS ORDERED: fentaNYL PF VIAL 100 MCG/2 ML VIAL IV PRN (17:45)
[2018-10-25] MEDS ORDERED: HYDROmorphone 2 MG/ML VIAL IV PRN (17:45)
[2018-10-25] MEDS ORDERED: MORPHINE SULFATE 2 MG/ML VIAL. ONE (17:56)
[2018-10-25] MEDS: MORPHINE SULFATE 2 MG/ML VIAL. IV PRN ×2 (18:00→18:17)
[2018-10-25 19:53] VITALS: BP 115/37
[2018-10-25 20:38] LABS: BARBITURATES NEG (NEG); BENZODIAZEPINES NEG (NEG); CANNABINOIDS POS (NEG); COCAINE NEG (NEG); METHADONE NEG (NEG); OPIATES POS (NEG); PHENCYCLIDINE NEG (NEG)
[2018-10-25 20:39] LABS: AMPHETAMINE/METHAMPHETAMINE POS (NEG)
--- NOTE | 2018-10-25 21:30 | NUR ---
Patient's EJ iv line out, leaking on neck, to attempt an iv restart. patient notified.
--- NOTE | 2018-10-25 22:00 | NUR ---
Manasa Adames, charge nurse unable to restart a peripheral iv line for patient's abx, to notify motor assembly supervisor.
[2018-10-25] MEDS: oxyCODONE/APAP 5/325 1 TAB TABLET PO PRN (22:25)
--- NOTE | 2018-10-25 23:00 | NUR ---
Lele, chimney supervisor brick, unable to restart peripheral iv line, to call physician global head [employer]iser [employer] for possible anesthesia iv start.
--- NOTE | 2018-10-25 23:30 | NUR ---
Manasa Adames, charge nurse, spoke with STEEL ESTIMATOR regarding anesthesia iv start, STEEL ESTIMATOR reported to have been unable to start a peripheral line in OR/PACU area, so reports will not be able to restart this evening.
[2018-10-25 23:47] VITALS: BP 137/70
[2018-10-26] VITALS (7 sets, daily range): BP systolic 103–137; BP diastolic 69–84
--- NOTE | 2018-10-26 01:16 | CONS ---
DATE OF CONSULTATION: 10/25/2018 INFECTIOUS DISEASE CONSULTATION LOCATION: The patient is in room 664. REQUESTING PHYSICIAN: Dr. Sampson. REASON FOR CONSULTATION: Rectal abscess, IV drug abuse. HISTORY OF PRESENT ILLNESS: The patient is a 33-year-old gentleman with history of previous MRSA skin infections, requiring I and D. He states the last time was several years ago on to his leg. Four days ago, he developed a pimple-like area on the right buttock area that worsened over time. He states he was having fevers with sharp pain. No evidence of nausea, but he did have some chills and had decreased appetite. No dysuria or frequency. He presented to [facility] and has been febrile and was found to have a perirectal abscess. He has been placed on vancomycin and Zosyn and is scheduled to undergo I and D. PAST MEDICAL HISTORY: Positive for previous MRSA. He has a history of hepatitis C in the past, also history of anxiety and depression. PAST SURGICAL HISTORY: Positive for tonsillectomy, cholecystectomy, bilateral hernia surgeries and history of I and D for previous abscess. REVIEW OF SYSTEMS: Otherwise negative. ALLERGIES: No known drug allergies. SOCIAL HISTORY: He has a history of marijuana. He is a smoker, occasional alcohol and has a history of IV drug use. 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 He states he has had a tetanus shot within the last couple of years. He also has a dog at home. FAMILY HISTORY: Noncontributory. CURRENT MEDICATIONS: Include vancomycin, Zosyn, Tylenol, Benadryl, Colace, Toradol, lactobacillus, nicotine patch and Zofran. Other meds are available and I have reviewed in the chart. PHYSICAL EXAMINATION: VITAL SIGNS: Temperature currently 102.5, pulse 109, respiratory rate 17, blood pressure 124/73 and satting 97% on room air. CONSTITUTIONAL: He is lying in bed. He appears comfortable. He is on his left side. HEENT: Pupils are equal and reactive. Normal conjunctivae. Oral cavity, pharynx is clear. NECK: Supple. No JVD. LUNGS: Clear to auscultation. HEART: S1, S2, without gross murmur. ABDOMEN: Obese, soft. No guarding or rebound. EXTREMITIES: Without clubbing, cyanosis or gross edema. SKIN: Warm to touch. He has multiple tattoos. In his right buttock area and into the upper part of his thigh, there is erythema and warmth. There is no gross drainage. NEUROLOGIC: He is nonfocal and appropriate. PSYCHIATRIC: Affect is flat. RADIOGRAPHIC DATA: Echo has left ventricular systolic function mildly impaired with an EF of 40% to 45%, with some mild global hypokinesis. CT scan of the abdomen and pelvis with soft tissue edema on the right from the parasagittal perineum on the right towards the right renal canal and rectum, mild wall thickening of the sigmoid colon and mild wall thickening of the urinary bladder. Urinalysis had 1-4 wbc's, few bacteria, negative nitrite and leukocyte esterase. IMPRESSION: 1. Fever. 2. Leukocytosis. 3. Right perirectal abscess. 4. History of methicillin-resistant Staphylococcus aureus. 5. Substance abuse. RECOMMENDATIONS: For now, continue the vancomycin and Zosyn. Follow up UDS, urine drug screen. Follow up labs and cultures, await I and D today. Thank you for allowing me to see and participate in the patient's care. Should you have any questions, please do not hesitate to contact me. JESSICA PRO MD DR: SETH/anatoly JOB#: [id number] / [id number]
[2018-10-26] MEDS: oxyCODONE/APAP 5/325 1 TAB TABLET PO PRN ×4 (03:43→23:50)
--- NOTE | 2018-10-26 03:50 | NUR ---
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 also attempts bilat arms.
--- NOTE | 2018-10-26 05:45 | NUR ---
FRED Saldana rn, attempts iv start rt arm without success,
[2018-10-26] MEDS: PIPERACILLIN/TAZOBACTAM 3.375 GM in IV NORMAL SALINE 50ML 50 ML IV SCH ×6 (06:00→23:45)
[2018-10-26] MEDS: VANCOMYCIN 1.25 GM in IV NORMAL SALINE 250ML 250 ML IV SCH ×2 (07:30→20:00)
[2018-10-26 07:53] LABS: BASO # 0.2 x10^3/uL (0.0-0.2); BASO % 1 % (0-3); EOS % 0 % (0-3); HEMATOCRIT 38.3 % (39.0-53.0); HEMOGLOBIN 12.8 g/dL (13.0-17.5); LYMPH # 0.9 x10^3/uL (1.0-4.8); LYMPH % 5 % (24-48); MEAN CORPUSCULAR HEMOGLOBIN 31 pg (25-35); MEAN CORPUSCULAR HGB CONC 33 g/dL (31-37); MEAN CORPUSCULAR VOLUME 93 fL (79-100); MONO # 0.6 x10^3/uL (0.0-1.1); MONO % 4 % (0-9); NEUT # 14.5 x10^3uL (1.8-7.7); NEUT % 90 % (31-73); PLATELET COUNT 205 x10^3/uL (140-400); RED BLOOD COUNT 4.12 x10^6/uL (4.30-5.70); RED CELL DISTRIBUTION WIDTH 13.7 % (11.5-14.5); WHITE BLOOD COUNT 16.1 x10^3/uL (4.0-11.0)
[2018-10-26 08:02] LABS: CALCIUM 8.7 mg/dL (8.5-10.1)
[2018-10-26 08:09] LABS: VANC TR 4.9 mcg/mL (10.0-20.0)
[2018-10-26] MEDS: VANCOMYCIN PER PHARMACY MC PRN ×5 (08:13→15:31)
--- NOTE | 2018-10-26 08:18 | NUR ---
Pharmacy Vancomycin Dosing Note S: Consulted to monitor and dose vancomycin started 10/24/18. O: RICHAR CASPER is a 33 year old M with Abscess, Sepsis Other Antibiotics: ZOSYN 10/24 - LABS: Last BUN: 10 Last Creatinine: 1 Creatinine Clearance: 94.6 mL/min Last WBC: 16.1 Last Procalcitonin: - Tmax (past 24 hours): 100 Microbiology: BLOOD: NGTD (AFTER 1 DAY) I/O: 880/1650 Drug Levels: Last Trough level: 4.9 on 10/26/18 at 0700 Last dose given 10/25/18 at 2004 Vancomycin Dosing: Dosing Weight: Actual Target Trough: 15-20 A: Based on: trough P: 1. Change Vancomycin to 1250 mg IV q8h 2. Follow up Trough level on 10/27/18 at 0830 3. Pharmacy will continue to monitor, follow and adjust therapy as needed. Kathryn John RPH, 10/26/18 0821
[2018-10-26] MEDS: LACTOBACILLUS RHAMNOSUS GG 1 CAPSULE. PO SCH ×2 (09:00→20:20)
[2018-10-26] MEDS: POLYETHYLENE GLYCOL 3350 17 GM PACKET. PO SCH (09:00)
[2018-10-26] MEDS ORDERED: VANCOMYCIN 1.25 GM in IV NORMAL SALINE 250ML 250 ML IV SCH (09:00)
--- NOTE | 2018-10-26 09:04 | NUR ---
IP: Pt is mrsa screen + requiring contact precautions.
--- NOTE | 2018-10-26 09:08 | PDOC ---
Infectious Disease Note Subjective Subjective Less pain. No F/C/S/N/V/D/Rash/SOA ROS ROS o/w neg Vital Sign Vital Signs Vital Signs Date Time Temp Pulse Resp B/P (MAP) Pulse Ox O2 Delivery O2 Flow Rate FiO2 10/26/18 07:00 97.5 76 18 117/71 (86) 98 Room Air 97.5 10/25/18 17:57 4 Physical Exam PHYSICAL EXAM CONSTITUTIONAL: He is lying in bed. He appears comfortable. He is on his right side. HEENT: Pupils are equal and reactive. Normal conjunctivae. Oral cavity, pharynx is clear. NECK: Supple. No JVD. LUNGS: Clear to auscultation. HEART: S1, S2, without gross murmur. ABDOMEN: Obese, soft. No guarding or rebound. EXTREMITIES: Without clubbing, cyanosis or gross edema. SKIN: Warm to touch. He has multiple tattoos. In his right buttock area is dressed and into the upper part of his thigh, there is improved erythema and warmth. There is no gross drainage. NEUROLOGIC: He is nonfocal and appropriate. PSYCHIATRIC: Affect is flat. Labs Lab Laboratory Tests Test 10/25/18 20:13 10/26/18 07:00 Urine Opiates Screen Pos (NEG) Urine Methadone Screen Neg (NEG) Urine Barbiturates Neg (NEG) Urine Phencyclidine Screen Neg (NEG) Urine Amphetamine/Methamphetamine Pos (NEG) Urine Benzodiazepines Screen Neg (NEG) Urine Cocaine Screen Neg (NEG) Urine Cannabinoids Screen Pos (NEG) Urine Ethyl Alcohol Neg (NEG) White Blood Count 16.1 x10^3/uL (4.0-11.0) Red Blood Count 4.12 x10^6/uL (4.30-5.70) Hemoglobin 12.8 g/dL (13.0-17.5) Hematocrit 38.3 % (39.0-53.0) Mean Corpuscular Volume 93 fL (79-100) Mean Corpuscular Hemoglobin 31 pg (25-35) Mean Corpuscular Hemoglobin Concent 33 g/dL (31-37) Red Cell Distribution Width 13.7 % (11.5-14.5) Platelet Count 205 x10^3/uL (140-400) Neutrophils (%) (Auto) 90 % (31-73) Lymphocytes (%) (Auto) 5 % (24-48) Monocytes (%) (Auto) 4 % (0-9) Eosinophils (%) (Auto) 0 % (0-3) Basophils (%) (Auto) 1 % (0-3) Neutrophils # (Auto) 14.5 x10^3uL (1.8-7.7) Lymphocytes # (Auto) 0.9 x10^3/uL (1.0-4.8) Monocytes # (Auto) 0.6 x10^3/uL (0.0-1.1) Eosinophils # (Auto) 0.0 x10^3/uL (0.0-0.7) Basophils # (Auto) 0.2 x10^3/uL (0.0-0.2) Sodium Level 142 mmol/L (136-145) Potassium Level 4.0 mmol/L (3.5-5.1) Chloride Level 104 mmol/L (98-107) Carbon Dioxide Level 28 mmol/L (21-32) Anion Gap 10 (6-14) Blood Urea Nitrogen 10 mg/dL (8-26) Creatinine 1.0 mg/dL (0.7-1.3) Estimated GFR (Cockcroft-Gault) 85.0 Glucose Level 164 mg/dL (70-99) Calcium Level 8.7 mg/dL (8.5-10.1) Vancomycin Level Trough 4.9 mcg/mL (10.0-20.0) Vancomycin Last Dose Date 10/25/18 Vancomycin Last Dose Time 1930 Micro Microbiology 10/24/18 Blood Culture - Preliminary, Resulted NO GROWTH AFTER 1 DAY Objective Assessment fever - better leukocytosis -better but now s/p Dexamethasone / right Perirectal abscess s/p I and D 10/25 H/o MRSA - + Nasal screen Hep C + Substance abuse - UDS + for amphet/Meth Plan Plan of Care Cont Vanc and Zosyn F/u labs and cults Wound care per surg JESSICA PRO MD Oct 26, 2018 09:08
[2018-10-26] MEDS: DOCUSATE SODIUM 100 MG CAPSULE. PO SCH (09:44)
--- NOTE | 2018-10-26 10:50 | PDOC ---
Subjective: Subjective: "Okay, I guess." Says eating "real food," hasn't stooled. Objective: Vital Signs: Vital Signs Date Time Temp Pulse Resp B/P (MAP) Pulse Ox O2 Delivery O2 Flow Rate FiO2 10/26/18 07:00 97.5 76 18 117/71 (86) 98 Room Air 97.5 10/25/18 17:57 4 Labs: Laboratory Tests Test 10/25/18 20:13 10/26/18 07:00 Urine Opiates Screen Pos Urine Methadone Screen Neg Urine Barbiturates Neg Urine Phencyclidine Screen Neg Urine Amphetamine/Methamphetamine Pos Urine Benzodiazepines Screen Neg Urine Cocaine Screen Neg Urine Cannabinoids Screen Pos Urine Ethyl Alcohol Neg White Blood Count 16.1 x10^3/uL Red Blood Count 4.12 x10^6/uL Hemoglobin 12.8 g/dL Hematocrit 38.3 % Mean Corpuscular Volume 93 fL Mean Corpuscular Hemoglobin 31 pg Mean Corpuscular Hemoglobin Concent 33 g/dL Red Cell Distribution Width 13.7 % Platelet Count 205 x10^3/uL Neutrophils (%) (Auto) 90 % Lymphocytes (%) (Auto) 5 % Monocytes (%) (Auto) 4 % Eosinophils (%) (Auto) 0 % Basophils (%) (Auto) 1 % Neutrophils # (Auto) 14.5 x10^3uL Lymphocytes # (Auto) 0.9 x10^3/uL Monocytes # (Auto) 0.6 x10^3/uL Eosinophils # (Auto) 0.0 x10^3/uL Basophils # (Auto) 0.2 x10^3/uL Sodium Level 142 mmol/L Potassium Level 4.0 mmol/L Chloride Level 104 mmol/L Carbon Dioxide Level 28 mmol/L Anion Gap 10 Blood Urea Nitrogen 10 mg/dL Creatinine 1.0 mg/dL Estimated GFR (Cockcroft-Gault) 85.0 Glucose Level 164 mg/dL Calcium Level 8.7 mg/dL Vancomycin Level Trough 4.9 mcg/mL Vancomycin Last Dose Date 10/25/18 Vancomycin Last Dose Time 1929 PE: GEN: NAD - was asleep, laying on left side, makes no effort to adjust for exam LUNGS: room air ABD: soft, doesn't seem tender NEURO/PSYCH: A & O x 3, flat A/P: Perirectal and gluteal abscess s/p I&D H/o Hep C - PCR pending +meth +cannabinoids -- Continue per surgery and ID. AMINA ALEXANDER Oct 26, 2018 10:50
--- NOTE | 2018-10-26 11:05 | NUR ---
PICC PREINSERTION NOTE NKDA Allergies and reactions INR NA BUN 10 Cr 1.0 Platelets 205 Blood culture done NA blood culture results Order Verified Y Consent signed Y Previous PICC placement Y Past Medical/Surgical history and current diagnosis reviewed Y Patient Medical /Surgical History Related to PICC line placement Infectious Disease consult Special considerations for PICC line placement None PICC placement indication , manager terminal antibiotic usage, zeeshan velásquez rn name of PICC Nurse Addendum: 10/26/18 at 1218 by ZEESHAN VELÁSQUEZ RN Amended: Links added.
--- NOTE | 2018-10-26 11:23 | NUR ---
SW following pt. ID, GI, wound care following pt and no dc recommendation noted at this time. Will continue to evaluate dc needs.
--- NOTE | 2018-10-26 12:05 | NUR ---
picc insertion note Procedure: Following complete explanation of the PICC procedure including the indications, risks, and potential complications, informed consent was obtained. The possibility for infection was discussed along with signs, symptoms, and prevention. All the questions were answered. Written and verbal patient education was provided. Hand hygiene performed. Standardized central line checklist was utilized. The patient was placed in the supine position, the arm was prepped with chlorhexidine and patient draped with maximum sterile barrier. 4 mL 1% lidocaine was infiltrated into the skin to provide local anesthesia. A thorough assessment of right upper extremity completed. Using real-time ultrasound guidance and standardized micro puncture set, the brachial vein was punctured and a peel away sheath was placed using the modified Seldinger technique. A tip location device was used to ensure adequate catheter placement. The catheter was secured using a securement device and an antimicrobial patch was applied directly on the insertion site followed by a transparent dressing. All ports withdraw blood and flush without resistance. Patient tolerated the procedure without apparent complication(s). single Lumen Power PICC placement successful and uncomplicated. Placement verified by EKG tip confirmation system and/or chest x-ray. Tip located in the caj/svc Complications: none catheter trimed at 42cm with 3cm visable
--- NOTE | 2018-10-26 12:31 | PDOC ---
[facility] PROGRESS NOTE Chief Complaint Chief Complaint Rectal abscess Colitis IV drug use Probable sepsis History of Present Illness History of Present Illness Mr. Sharp, is a 33 year old male presenting with 3 days of worsening buttock pain. he thought that the pain would go away and has now worsened. and now he had a fever and now the pain is sharp and severe. 10/10 with movement and radiates diffusely. because nausea no abdominal pain symptoms are moderate worsening. he has been sober for some time, prior IV drug use. Patient was seen and examined this morning He is a frail-appearing thin white male with multiple tattoos Currently getting a PICC line Vitals Vitals Vital Signs Date Time Temp Pulse Resp B/P (MAP) Pulse Ox O2 Delivery O2 Flow Rate FiO2 10/26/18 11:00 98.2 100 18 108/69 (82) 98 Room Air 98.2 10/25/18 17:57 4 Physical Exam Physical Exam CONSTITUTIONAL: He is lying in bed. He appears comfortable. He is on his right side. HEENT: Pupils are equal and reactive. Normal conjunctivae. Oral cavity, pharynx is clear. NECK: Supple. No JVD. LUNGS: Clear to auscultation. HEART: S1, S2, without gross murmur. ABDOMEN: Obese, soft. No guarding or rebound. EXTREMITIES: Without clubbing, cyanosis or gross edema. SKIN: Warm to touch. He has multiple tattoos. In his right buttock area is dressed and into the upper part of his thigh, there is improved erythema and warmth. There is no gross drainage. NEUROLOGIC: He is nonfocal and appropriate. PSYCHIATRIC: Affect is flat. General: moderate distress Heart: Normal S1, Normal S2, Other (tachy) Lungs: Clear Abdomen: Soft, Other (tender) Extremities: No clubbing, No cyanosis, Other (some erythema does extend down thigh ) Skin: Other (right perirectal area with erythema, induration, drainage purulent, many tattoos) Labs Labs: Laboratory Tests Test 10/25/18 20:13 10/26/18 07:00 Urine Opiates Screen Pos (NEG) Urine Methadone Screen Neg (NEG) Urine Barbiturates Neg (NEG) Urine Phencyclidine Screen Neg (NEG) Urine Amphetamine/Methamphetamine Pos (NEG) Urine Benzodiazepines Screen Neg (NEG) Urine Cocaine Screen Neg (NEG) Urine Cannabinoids Screen Pos (NEG) Urine Ethyl Alcohol Neg (NEG) White Blood Count 16.1 x10^3/uL (4.0-11.0) Red Blood Count 4.12 x10^6/uL (4.30-5.70) Hemoglobin 12.8 g/dL (13.0-17.5) Hematocrit 38.3 % (39.0-53.0) Mean Corpuscular Volume 93 fL (79-100) Mean Corpuscular Hemoglobin 31 pg (25-35) Mean Corpuscular Hemoglobin Concent 33 g/dL (31-37) Red Cell Distribution Width 13.7 % (11.5-14.5) Platelet Count 205 x10^3/uL (140-400) Neutrophils (%) (Auto) 90 % (31-73) Lymphocytes (%) (Auto) 5 % (24-48) Monocytes (%) (Auto) 4 % (0-9) Eosinophils (%) (Auto) 0 % (0-3) Basophils (%) (Auto) 1 % (0-3) Neutrophils # (Auto) 14.5 x10^3uL (1.8-7.7) Lymphocytes # (Auto) 0.9 x10^3/uL (1.0-4.8) Monocytes # (Auto) 0.6 x10^3/uL (0.0-1.1) Eosinophils # (Auto) 0.0 x10^3/uL (0.0-0.7) Basophils # (Auto) 0.2 x10^3/uL (0.0-0.2) Sodium Level 142 mmol/L (136-145) Potassium Level 4.0 mmol/L (3.5-5.1) Chloride Level 104 mmol/L (98-107) Carbon Dioxide Level 28 mmol/L (21-32) Anion Gap 10 (6-14) Blood Urea Nitrogen 10 mg/dL (8-26) Creatinine 1.0 mg/dL (0.7-1.3) Estimated GFR (Cockcroft-Gault) 85.0 Glucose Level 164 mg/dL (70-99) Calcium Level 8.7 mg/dL (8.5-10.1) Vancomycin Level Trough 4.9 mcg/mL (10.0-20.0) Vancomycin Last Dose Date 10/25/18 Vancomycin Last Dose Time 1930 Assessment and Plan Assessmemt and Plan Rectal abscess Colitis IV drug use Probable sepsis Plan IV antibiotics Wound care Gen. surgery following GI following Home meds DVT prophylaxis Full code Frequent labs Comment Review of Relevant I have reviewed the following items janina (where applicable) has been applied. Labs Laboratory Tests Test 10/24/18 18:33 10/24/18 20:44 10/25/18 00:05 10/25/18 03:45 White Blood Count 24.8 x10^3/uL (4.0-11.0) 18.8 x10^3/uL (4.0-11.0) Red Blood Count 4.17 x10^6/uL (4.30-5.70) 3.57 x10^6/uL (4.30-5.70) Hemoglobin 13.1 g/dL (13.0-17.5) 11.3 g/dL (13.0-17.5) Hematocrit 37.8 % (39.0-53.0) 32.7 % (39.0-53.0) Mean Corpuscular Volume 91 fL (79-100) 92 fL (79-100) Mean Corpuscular Hemoglobin 31 pg (25-35) 32 pg (25-35) Mean Corpuscular Hemoglobin Concent 35 g/dL (31-37) 35 g/dL (31-37) Red Cell Distribution Width 13.3 % (11.5-14.5) 13.4 % (11.5-14.5) Platelet Count 174 x10^3/uL (140-400) 158 x10^3/uL (140-400) Neutrophils (%) (Auto) 89 % (31-73) 82 % (31-73) Lymphocytes (%) (Auto) 5 % (24-48) 9 % (24-48) Monocytes (%) (Auto) 6 % (0-9) 9 % (0-9) Eosinophils (%) (Auto) 0 % (0-3) 0 % (0-3) Basophils (%) (Auto) 0 % (0-3) 0 % (0-3) Neutrophils # (Auto) 22.0 x10^3uL (1.8-7.7) 15.4 x10^3uL (1.8-7.7) Lymphocytes # (Auto) 1.2 x10^3/uL (1.0-4.8) 1.7 x10^3/uL (1.0-4.8) Monocytes # (Auto) 1.5 x10^3/uL (0.0-1.1) 1.6 x10^3/uL (0.0-1.1) Eosinophils # (Auto) 0.0 x10^3/uL (0.0-0.7) 0.1 x10^3/uL (0.0-0.7) Basophils # (Auto) 0.0 x10^3/uL (0.0-0.2) 0.1 x10^3/uL (0.0-0.2) Segmented Neutrophils % 88 % (35-66) Lymphocytes % 6 % (24-48) Monocytes % 6 % (0-10) Platelet Estimate Adequate (ADEQUATE) Platelet Clumps, EDTA Present Polychromasia Slight Anisocytosis Slight Schistocytes Occ Sodium Level 133 mmol/L (136-145) 139 mmol/L (136-145) Potassium Level 3.4 mmol/L (3.5-5.1) 3.4 mmol/L (3.5-5.1) Chloride Level 97 mmol/L (98-107) 104 mmol/L (98-107) Carbon Dioxide Level 26 mmol/L (21-32) 27 mmol/L (21-32) Anion Gap 10 (6-14) 8 (6-14) Blood Urea Nitrogen 11 mg/dL (8-26) 11 mg/dL (8-26) Creatinine 1.1 mg/dL (0.7-1.3) 1.2 mg/dL (0.7-1.3) Estimated GFR (Cockcroft-Gault) 76.2 68.9 BUN/Creatinine Ratio 10 (6-20) Glucose Level 142 mg/dL (70-99) 111 mg/dL (70-99) Lactic Acid Level 1.7 mmol/L (0.4-2.0) Calcium Level 8.5 mg/dL (8.5-10.1) 7.8 mg/dL (8.5-10.1) Total Bilirubin 1.0 mg/dL (0.2-1.0) Aspartate Amino Transf (AST/SGOT) 34 U/L (15-37) Alanine Aminotransferase (ALT/SGPT) 32 U/L (16-63) Alkaline Phosphatase 117 U/L (46-116) Total Protein 6.6 g/dL (6.4-8.2) Albumin 2.5 g/dL (3.4-5.0) Albumin/Globulin Ratio 0.6 (1.0-1.7) Urine Color Yellow Urine Clarity Clear Urine pH 6.5 Urine Specific Henderson >=1.030 Urine Protein 30 mg/dL (NEG-TRACE) Urine Glucose (UA) Negative mg/dL (NEG) Urine Ketones (Stick) Negative mg/dL (NEG) Urine Blood Trace (NEG) Urine Nitrite Negative (NEG) Urine Bilirubin Negative (NEG) Urine Urobilinogen Dipstick 1.0 mg/dL (0.2 mg/dL) Urine Leukocyte Esterase Negative (NEG) Urine RBC 1-2 /HPF (0-2) Urine WBC 1-4 /HPF (0-4) Urine Squamous Epithelial Cells Occ /LPF Urine Bacteria Few /HPF (0-FEW) Nasal Screen MRSA (PCR) Positive (Negative) Hepatitis A IgM Antibody Nonreactive (Nonreactive) Hepatitis B Surface Antigen Nonreactive (Nonreactive) Hepatitis B Core IgM Antibody Nonreactive (Nonreactive) Hepatitis C IgG Antibody Reactive (Nonreactive) Test 10/25/18 20:13 10/26/18 07:00 Urine Opiates Screen Pos (NEG) Urine Methadone Screen Neg (NEG) Urine Barbiturates Neg (NEG) Urine Phencyclidine Screen Neg (NEG) Urine Amphetamine/Methamphetamine Pos (NEG) Urine Benzodiazepines Screen Neg (NEG) Urine Cocaine Screen Neg (NEG) Urine Cannabinoids Screen Pos (NEG) Urine Ethyl Alcohol Neg (NEG) White Blood Count 16.1 x10^3/uL (4.0-11.0) Red Blood Count 4.12 x10^6/uL (4.30-5.70) Hemoglobin 12.8 g/dL (13.0-17.5) Hematocrit 38.3 % (39.0-53.0) Mean Corpuscular Volume 93 fL (79-100) Mean Corpuscular Hemoglobin 31 pg (25-35) Mean Corpuscular Hemoglobin Concent 33 g/dL (31-37) Red Cell Distribution Width 13.7 % (11.5-14.5) Platelet Count 205 x10^3/uL (140-400) Neutrophils (%) (Auto) 90 % (31-73) Lymphocytes (%) (Auto) 5 % (24-48) Monocytes (%) (Auto) 4 % (0-9) Eosinophils (%) (Auto) 0 % (0-3) Basophils (%) (Auto) 1 % (0-3) Neutrophils # (Auto) 14.5 x10^3uL (1.8-7.7) Lymphocytes # (Auto) 0.9 x10^3/uL (1.0-4.8) Monocytes # (Auto) 0.6 x10^3/uL (0.0-1.1) Eosinophils # (Auto) 0.0 x10^3/uL (0.0-0.7) Basophils # (Auto) 0.2 x10^3/uL (0.0-0.2) Sodium Level 142 mmol/L (136-145) Potassium Level 4.0 mmol/L (3.5-5.1) Chloride Level 104 mmol/L (98-107) Carbon Dioxide Level 28 mmol/L (21-32) Anion Gap 10 (6-14) Blood Urea Nitrogen 10 mg/dL (8-26) Creatinine 1.0 mg/dL (0.7-1.3) Estimated GFR (Cockcroft-Gault) 85.0 Glucose Level 164 mg/dL (70-99) Calcium Level 8.7 mg/dL (8.5-10.1) Vancomycin Level Trough 4.9 mcg/mL (10.0-20.0) Vancomycin Last Dose Date 10/25/18 Vancomycin Last Dose Time 193 Laboratory Tests Test 10/25/18 20:13 10/26/18 07:00 Urine Opiates Screen Pos (NEG) Urine Methadone Screen Neg (NEG) Urine Barbiturates Neg (NEG) Urine Phencyclidine Screen Neg (NEG) Urine Amphetamine/Methamphetamine Pos (NEG) Urine Benzodiazepines Screen Neg (NEG) Urine Cocaine Screen Neg (NEG) Urine Cannabinoids Screen Pos (NEG) Urine Ethyl Alcohol Neg (NEG) White Blood Count 16.1 x10^3/uL (4.0-11.0) Red Blood Count 4.12 x10^6/uL (4.30-5.70) Hemoglobin 12.8 g/dL (13.0-17.5) Hematocrit 38.3 % (39.0-53.0) Mean Corpuscular Volume 93 fL (79-100) Mean Corpuscular Hemoglobin 31 pg (25-35) Mean Corpuscular Hemoglobin Concent 33 g/dL (31-37) Red Cell Distribution Width 13.7 % (11.5-14.5) Platelet Count 205 x10^3/uL (140-400) Neutrophils (%) (Auto) 90 % (31-73) Lymphocytes (%) (Auto) 5 % (24-48) Monocytes (%) (Auto) 4 % (0-9) Eosinophils (%) (Auto) 0 % (0-3) Basophils (%) (Auto) 1 % (0-3) Neutrophils # (Auto) 14.5 x10^3uL (1.8-7.7) Lymphocytes # (Auto) 0.9 x10^3/uL (1.0-4.8) Monocytes # (Auto) 0.6 x10^3/uL (0.0-1.1) Eosinophils # (Auto) 0.0 x10^3/uL (0.0-0.7) Basophils # (Auto) 0.2 x10^3/uL (0.0-0.2) Sodium Level 142 mmol/L (136-145) Potassium Level 4.0 mmol/L (3.5-5.1) Chloride Level 104 mmol/L (98-107) Carbon Dioxide Level 28 mmol/L (21-32) Anion Gap 10 (6-14) Blood Urea Nitrogen 10 mg/dL (8-26) Creatinine 1.0 mg/dL (0.7-1.3) Estimated GFR (Cockcroft-Gault) 85.0 Glucose Level 164 mg/dL (70-99) Calcium Level 8.7 mg/dL (8.5-10.1) Vancomycin Level Trough 4.9 mcg/mL (10.0-20.0) Vancomycin Last Dose Date 10/25/18 Vancomycin Last Dose Time 1930 Microbiology 10/24/18 Blood Culture - Preliminary, Resulted NO GROWTH AFTER 1 DAY Medications Current Medications Sodium Chloride 1,000 ml @ 1,000 mls/hr 1X ONCE IV Last administered on 10/24/18at 18:40; Start 10/24/18 at 18:30; Stop 10/24/18 at 19:29; Status DC Sodium Chloride 1,000 ml @ 1,000 mls/hr 1X ONCE IV Last administered on 10/24/18at 18:44; Start 10/24/18 at 18:30; Stop 10/24/18 at 19:29; Status DC Piperacillin Sod/ Tazobactam Sod (Zosyn Per Pharmacy) 1 each PRN DAILY PRN MC SEE COMMENTS; Start 10/24/18 at 18:30; Status UNV Sodium Chloride 500 ml @ 500 mls/hr 1X ONCE IV Last administered on 10/24/18at 19:13; Start 10/24/18 at 18:30; Stop 10/24/18 at 19:29; Status DC Piperacillin Sod/ Tazobactam Sod (Zosyn Per Pharmacy) 1 each PRN DAILY PRN MC SEE COMMENTS; Start 10/24/18 at 18:30 Vancomycin HCl (Vanco Per Pharmacy) 1 each PRN DAILY PRN MC SEE COMMENTS Last administered on 10/26/18at 08:19; Start 10/24/18 at 18:30 Acetaminophen (Tylenol) 1,000 mg 1X ONCE PO Last administered on 10/24/18at 19:12; Start 10/24/18 at 18:30; Stop 10/24/18 at 18:31; Status DC Vancomycin HCl 2 gm/Sodium Chloride 500 ml @ 250 mls/hr 1X ONCE IV Last administered on 10/24/18at 19:34; Start 10/24/18 at 19:00; Stop 10/24/18 at 20:59; Status DC Piperacillin Sod/ Tazobactam Sod 3.375 gm/Sodium Chloride 50 ml @ 100 mls/hr 1X ONCE IV Last administered on 10/24/18at 18:45; Start 10/24/18 at 18:30; Stop 10/24/18 at 18:59; Status DC Morphine Sulfate (Morphine Sulfate) 6 mg 1X ONCE IV Last administered on 10/24/18 19:12; Start 10/24/18 at 19:00; Stop 10/24/18 at 19:01; Status DC Iohexol (Omnipaque 300 Mg/ml) 75 ml 1X ONCE IV Last administered on 10/24/18at 19:37; Start 10/24/18 at 19:15; Stop 10/24/18 at 19:19; Status DC Info (CONTRAST GIVEN -- Rx MONITORING) 1 each PRN DAILY PRN MC SEE COMMENTS; Start 10/24/18 at 19:30; Stop 10/26/18 at 19:29 Ondansetron HCl (Zofran) 4 mg 1X ONCE IV Last administered on 10/24/18at 19:33; Start 10/24/18 at 19:30; Stop 10/24/18 at 19:31; Status DC Ondansetron HCl (Zofran) 4 mg PRN Q8HRS PRN IV NAUSEA/VOMITING; Start 10/24/18 at 20:15; Stop 10/24/18 at 21:43; Status DC Morphine Sulfate (Morphine Sulfate) 4 mg PRN Q2HR PRN IV PAIN Last administered on 10/25/18at 20:04; Start 10/24/18 at 20:15; Stop 10/25/18 at 20:14; Status DC Sodium Chloride 1,000 ml @ 125 mls/hr Q8H IV Last administered on 10/25/18at 04:03; Start 10/24/18 at 20:09; Stop 10/25/18 at 20:08; Status DC Piperacillin Sod/ Tazobactam Sod 3.375 gm/Sodium Chloride 50 ml @ 100 mls/hr Q6HRS IV Last administered on 10/25/18at 19:13; Start 10/25/18 at 00:00 Vancomycin HCl 1.25 gm/Sodium Chloride 250 ml @ 167 mls/hr Q12H IV Last administered on 10/26/18at 07:30; Start 10/25/18 at 07:30; Stop 10/26/18 at 08:17; Status DC Vancomycin HCl (Vancomycin Trough Level) 1 each 1X ONCE MC Last administered on 10/26/18at 07:00; Start 10/26/18 at 07:00; Stop 10/26/18 at 07:01; Status DC Oxycodone/ Acetaminophen (Percocet 7.5/ 325) 1 tab PRN Q4HRS PRN PO PAIN Last administered on 10/25/18at 04:19; Start 10/24/18 at 21:30; Stop 10/25/18 at 17:25; Status DC Potassium Chloride (Klor-Con) 20 meq 1X ONCE PO Last administered on 10/24/18at 23:20; Start 10/24/18 at 21:30; Stop 10/24/18 at 21:32; Status DC Ketorolac Tromethamine (Toradol 30mg Vial) 30 mg 1X ONCE IV Last administered on 10/24/18at 23:21; Start 10/24/18 at 21:30; Stop 10/24/18 at 21:32; Status DC Phenyleph/Shark Oil/Min Oil/Petrol (Preparation H) 1 jose roberto PRN QID PRN RC RECTAL PAIN; Start 10/24/18 at 21:30 Nicotine Polacrilex (Nicorette Gum) 1 each PRN Q1HR PRN BC SMOKING CESSATION Last administered on 10/25/18at 11:58; Start 10/24/18 at 21:45 Nicotine (Nicoderm Cq 21mg) 1 patch PRN DAILY PRN TD SMOKING CESSATION; Start 10/24/18 at 21:45 Docusate Sodium (Colace) 100 mg DAILY PO Last administered on 10/26/18at 09:44; Start 10/25/18 at 09:00 Polyethylene Glycol (miraLAX PACKET) 17 gm DAILY PO ; Start 10/25/18 at 09:00 Ondansetron HCl (Zofran) 4 mg PRN Q8HRS PRN IV NAUSEA/VOMITING; Start 10/24/18 at 21:45 Diphenhydramine HCl (Benadryl) 25 mg PRN QHS PRN PO INSOMNIA; Start 10/24/18 at 21:45 Lactobacillus Rhamnosus (Culturelle) 1 cap BID PO Last administered on 10/26/18at 09:00; Start 10/25/18 at 11:00 Propofol (Diprivan) 200 mg STK-MED ONCE IV ; Start 10/25/18 at 15:20; Stop 10/25/18 at 15:39; Status DC Famotidine (Pepcid Vial) 20 mg STK-MED ONCE .ROUTE ; Start 10/25/18 at 15:20; Stop 10/25/18 at 15:39; Status DC Lidocaine HCl (Lidocaine Pf 2% Vial) 5 ml STK-MED ONCE .ROUTE ; Start 10/25/18 at 15:20; Stop 10/25/18 at 15:39; Status DC Ondansetron HCl (Zofran) 4 mg STK-MED ONCE .ROUTE ; Start 10/25/18 at 15:20; Stop 10/25/18 at 15:39; Status DC Dexamethasone Sodium Phosphate (Decadron) 8 mg STK-MED ONCE .ROUTE ; Start 10/25/18 at 15:20; Stop 10/25/18 at 15:39; Status DC Succinylcholine Chloride (Anectine) 200 mg STK-MED ONCE .ROUTE ; Start 10/25/18 at 15:20; Stop 10/25/18 at 15:39; Status DC Fentanyl Citrate (Fentanyl 2ml Vial) 100 mcg STK-MED ONCE .ROUTE ; Start 10/25/18 at 15:20; Stop 10/25/18 at 15:39; Status DC Midazolam HCl (Versed) 2 mg STK-MED ONCE .ROUTE ; Start 10/25/18 at 15:20; Stop 10/25/18 at 15:39; Status DC Oxycodone/ Acetaminophen (Percocet 5/325) 1 tab PRN Q4HRS PRN PO MILD PAIN 1-3; Start 10/25/18 at 17:15 Oxycodone/ Acetaminophen (Percocet 5/325) 2 tab PRN Q4HRS PRN PO MODERATE PAIN, SEVERE PAIN Last administered on 10/26/18at 03:43; Start 10/25/18 at 17:30 Fentanyl Citrate (Fentanyl 2ml Vial) 25 mcg PRN Q5MIN PRN IV MILD PAIN 1-3; Start 10/25/18 at 17:45; Stop 10/25/18 at 19:58; Status DC Fentanyl Citrate (Fentanyl 2ml Vial) 50 mcg PRN Q5MIN PRN IV MODERATE TO SEVERE PAIN Last administered on 10/25/18at 17:45; Start 10/25/18 at 17:45; Stop 10/25/18 at 19:58; Status DC Morphine Sulfate (Morphine Sulfate) 2 mg PRN Q10MIN PRN IV MILD PAIN 1-3 Last administered on 10/25/18at 18:17; Start 10/25/18 at 17:45; Stop 10/25/18 at 19:58; Status DC Hydromorphone HCl (Dilaudid) 0.5 mg PRN Q10MIN PRN IV Moderate to severe pain Last administered on 10/25/18at 18:28; Start 10/25/18 at 17:45; Stop 10/25/18 at 19:58; Status DC Ondansetron HCl (Zofran) 4 mg PRN Q6HRS PRN IV Nausea, 1st Choice; Start 10/25/18 at 17:45; Stop 10/26/18 at 17:44 Prochlorperazine Edisylate (Compazine) 5 mg PRN Q10MIN PRN IV Nausea/Vomiting, 1st Choice Last administered on 10/25/18at 18:00; Start 10/25/18 at 17:45; Stop 10/26/18 at 17:44 Rocuronium Proctor (Zemuron) 50 mg STK-MED ONCE .ROUTE ; Start 10/25/18 at 17:00; Stop 10/25/18 at 17:59; Status DC Esmolol HCl (Brevibloc) 100 mg STK-MED ONCE IVP ; Start 10/25/18 at 17:00; Stop 10/25/18 at 17:59; Status DC Morphine Sulfate (Morphine Sulfate) 10 mg STK-MED ONCE .ROUTE ; Start 10/25/18 at 17:00; Stop 10/25/18 at 17:59; Status DC Propofol 20 ml @ As Directed STK-MED ONCE IV ; Start 10/25/18 at 15:17; Stop 10/25/18 at 18:04; Status DC Famotidine (Pepcid Vial) 20 mg STK-MED ONCE .ROUTE ; Start 10/25/18 at 15:17; Stop 10/25/18 at 18:04; Status DC Lidocaine HCl (Lidocaine Pf 2% Vial) 5 ml STK-MED ONCE .ROUTE ; Start 10/25/18 at 15:17; Stop 10/25/18 at 18:04; Status DC Ondansetron HCl (Zofran) 4 mg STK-MED ONCE .ROUTE ; Start 10/25/18 at 15:17; Stop 10/25/18 at 18:04; Status DC Dexamethasone Sodium Phosphate (Decadron) 4 mg STK-MED ONCE .ROUTE ; Start 10/25/18 at 15:17; Stop 10/25/18 at 18:04; Status DC Succinylcholine Chloride (Anectine) 200 mg STK-MED ONCE .ROUTE ; Start 10/25/18 at 15:17; Stop 10/25/18 at 18:04; Status DC Fentanyl Citrate (Fentanyl 2ml Vial) 100 mcg STK-MED ONCE .ROUTE ; Start 10/25/18 at 15:17; Stop 10/25/18 at 18:04; Status DC Midazolam HCl (Versed) 2 mg STK-MED ONCE .ROUTE ; Start 10/25/18 at 15:17; Stop 10/25/18 at 18:04; Status DC Bupivacaine HCl/ Epinephrine Bitart (Sensorcain-Mpf Epi 0.5%-[id number]) 30 ml STK-MED ONCE .ROUTE ; Start 10/25/18 at 14:35; Stop 10/25/18 at 18:04; Status DC Rocuronium Proctor (Zemuron) 50 mg STK-MED ONCE .ROUTE ; Start 10/25/18 at 16:30; Stop 10/25/18 at 18:05; Status DC Esmolol HCl (Brevibloc) 100 mg STK-MED ONCE IVP ; Start 10/25/18 at 16:38; Stop 10/25/18 at 18:05; Status DC Morphine Sulfate (Morphine Sulfate) 10 mg STK-MED ONCE .ROUTE ; Start 10/25/18 at 17:00; Stop 10/25/18 at 18:05; Status DC Fentanyl Citrate (Fentanyl 2ml Vial) 100 mcg STK-MED ONCE .ROUTE ; Start 10/25/18 at 17:33; Stop 10/25/18 at 18:05; Status DC Morphine Sulfate (Morphine Sulfate) 2 mg STK-MED ONCE .ROUTE ; Start 10/25/18 at 17:56; Stop 10/25/18 at 18:06; Status DC Vancomycin HCl 1.25 gm/Sodium Chloride 250 ml @ 167 mls/hr Q8H IV ; Start 10/26/18 at 09:00 Vancomycin HCl (Vancomycin Trough Level) 1 each 1X ONCE MC ; Start 10/27/18 at 08:30; Stop 10/27/18 at 08:31 Active Scripts Active Vitals/I & O Vital Sign - Last 24 Hours 10/25/18 10/25/18 10/25/18 10/25/18 15:27 15:31 17:11 17:11 Temp 100.0 99.8 100 100.0 99.8 100.0 Pulse 114 103 120 Resp 19 14 24 B/P (MAP) 124/75 (91) 136/79 134/63 Pulse Ox 98 96 91 O2 Delivery Room Air Room Air Simple Mask Mask O2 Flow Rate 10 8 10/25/18 10/25/18 10/25/18 10/25/18 17:27 17:35 17:42 17:45 Temp 100.0 100.0 Pulse 120 110 Resp 18 22 12 20 B/P (MAP) 143/67 125/54 Pulse Ox 100 100 100 O2 Delivery Simple Mask Simple Mask Simple Mask Room Air O2 Flow Rate 10 10.0 4 10/25/18 10/25/18 10/25/18 10/25/18 17:57 18:00 18:15 18:17 Pulse 104 100 Resp 24 24 21 24 B/P (MAP) 125/54 136/39 Pulse Ox 97 100 O2 Delivery Simple Mask Room Air Room Air Room Air O2 Flow Rate 4 10/25/18 10/25/18 10/25/18 10/25/18 18:28 18:30 19:53 20:00 Temp 98.1 98.1 Pulse 98 Resp 23 20 B/P (MAP) 138/74 115/37 (63) Pulse Ox 97 O2 Delivery Room Air Room Air Room Air Room Air 10/25/18 10/25/18 10/25/18 10/26/18 20:04 22:25 23:47 03:43 Temp 98.0 98.0 Pulse 85 Resp 20 20 18 20 B/P (MAP) 137/70 (92) Pulse Ox 93 O2 Delivery Room Air Room Air Room Air Room Air 10/26/18 10/26/18 10/26/18 10/26/18 03:53 04:43 07:00 08:00 Temp 97.7 97.5 97.7 97.5 Pulse 85 76 Resp 18 20 18 B/P (MAP) 137/70 (92) 117/71 (86) Pulse Ox 97 98 O2 Delivery Room Air Room Air Room Air Room Air 10/26/18 11:00 Temp 98.2 98.2 Pulse 100 Resp 18 B/P (MAP) 108/69 (82) Pulse Ox 98 O2 Delivery Room Air Intake and Output 10/25/18 10/25/18 10/26/18 15:00 23:00 07:00 Intake Total 0 ml 0 ml 880 ml Output Total 650 ml 1000 ml Balance 0 ml -650 ml -120 ml CASTLE,NIAL K III DO Oct 26, 2018 12:30
--- NOTE | 2018-10-26 15:44 | NUR ---
Wound Care Pt seen for wound care consultation re: a R perirectal/buttock abscess, s/p surgical I&D yesterday with Dr. Eubanks. Pt had just received 2 Percocet 2 hours prior to our arrival. Pt's R buttock and perirectal open incisional dressings and packing removed in stages, as pt began screaming and cursing and hitting the bedrails. Pt's nurse came into the room to assess wounds, and called pt's physician for additional pain medication. Both wounds cleaned, measured and photographed, distal wound with gluteal muscle exposed, both wounds sloughy and dusky red. Both wounds repacked with Aquacel AG strips/rope, 2 in proximal wound and 1 strip in distal, covered with ABD and mesh underwear, recommend changing every other day. No other wounds noted on full skin inspection. Will continue to follow up for wound care needs.
[2018-10-26] MEDS ORDERED: MORPHINE SULFATE 2 MG/ML VIAL. ONE (15:46)
[2018-10-26] MEDS: MORPHINE SULFATE 10 MG/ML VIAL. IV PRN ×2 (15:50→20:20)
--- NOTE | 2018-10-26 16:14 | PDOC ---
PROGRESS NOTES Subjective Subjective dressing change was very painful Objective Objective Vital Signs Date Time Temp Pulse Resp B/P (MAP) Pulse Ox O2 Delivery O2 Flow Rate FiO2 10/26/18 15:50 Room Air 10/26/18 15:00 98.0 93 18 103/72 (82) 100 98.0 10/25/18 17:57 4 Intake and Output 10/26/18 07:00 Intake Total 880 ml Output Total 1650 ml Balance -770 ml Intake Oral 880 ml Output Urine Total 1600 ml Estimated Blood Loss 50 ml # Voids 1 Assessment Assessment large perirectal/gluteal abscess Plan Plan of Care postop wound care Comment Review of Relevant I have reviewed the following items janina (where applicable) has been applied. Labs Laboratory Tests Test 10/24/18 18:33 10/24/18 20:44 10/25/18 00:05 10/25/18 03:45 White Blood Count 24.8 x10^3/uL (4.0-11.0) 18.8 x10^3/uL (4.0-11.0) Red Blood Count 4.17 x10^6/uL (4.30-5.70) 3.57 x10^6/uL (4.30-5.70) Hemoglobin 13.1 g/dL (13.0-17.5) 11.3 g/dL (13.0-17.5) Hematocrit 37.8 % (39.0-53.0) 32.7 % (39.0-53.0) Mean Corpuscular Volume 91 fL (79-100) 92 fL (79-100) Mean Corpuscular Hemoglobin 31 pg (25-35) 32 pg (25-35) Mean Corpuscular Hemoglobin Concent 35 g/dL (31-37) 35 g/dL (31-37) Red Cell Distribution Width 13.3 % (11.5-14.5) 13.4 % (11.5-14.5) Platelet Count 174 x10^3/uL (140-400) 158 x10^3/uL (140-400) Neutrophils (%) (Auto) 89 % (31-73) 82 % (31-73) Lymphocytes (%) (Auto) 5 % (24-48) 9 % (24-48) Monocytes (%) (Auto) 6 % (0-9) 9 % (0-9) Eosinophils (%) (Auto) 0 % (0-3) 0 % (0-3) Basophils (%) (Auto) 0 % (0-3) 0 % (0-3) Neutrophils # (Auto) 22.0 x10^3uL (1.8-7.7) 15.4 x10^3uL (1.8-7.7) Lymphocytes # (Auto) 1.2 x10^3/uL (1.0-4.8) 1.7 x10^3/uL (1.0-4.8) Monocytes # (Auto) 1.5 x10^3/uL (0.0-1.1) 1.6 x10^3/uL (0.0-1.1) Eosinophils # (Auto) 0.0 x10^3/uL (0.0-0.7) 0.1 x10^3/uL (0.0-0.7) Basophils # (Auto) 0.0 x10^3/uL (0.0-0.2) 0.1 x10^3/uL (0.0-0.2) Segmented Neutrophils % 88 % (35-66) Lymphocytes % 6 % (24-48) Monocytes % 6 % (0-10) Platelet Estimate Adequate (ADEQUATE) Platelet Clumps, EDTA Present Polychromasia Slight Anisocytosis Slight Schistocytes Occ Sodium Level 133 mmol/L (136-145) 139 mmol/L (136-145) Potassium Level 3.4 mmol/L (3.5-5.1) 3.4 mmol/L (3.5-5.1) Chloride Level 97 mmol/L (98-107) 104 mmol/L (98-107) Carbon Dioxide Level 26 mmol/L (21-32) 27 mmol/L (21-32) Anion Gap 10 (6-14) 8 (6-14) Blood Urea Nitrogen 11 mg/dL (8-26) 11 mg/dL (8-26) Creatinine 1.1 mg/dL (0.7-1.3) 1.2 mg/dL (0.7-1.3) Estimated GFR (Cockcroft-Gault) 76.2 68.9 BUN/Creatinine Ratio 10 (6-20) Glucose Level 142 mg/dL (70-99) 111 mg/dL (70-99) Lactic Acid Level 1.7 mmol/L (0.4-2.0) Calcium Level 8.5 mg/dL (8.5-10.1) 7.8 mg/dL (8.5-10.1) Total Bilirubin 1.0 mg/dL (0.2-1.0) Aspartate Amino Transf (AST/SGOT) 34 U/L (15-37) Alanine Aminotransferase (ALT/SGPT) 32 U/L (16-63) Alkaline Phosphatase 117 U/L (46-116) Total Protein 6.6 g/dL (6.4-8.2) Albumin 2.5 g/dL (3.4-5.0) Albumin/Globulin Ratio 0.6 (1.0-1.7) Urine Color Yellow Urine Clarity Clear Urine pH 6.5 Urine Specific [place] >=1.030 Urine Protein 30 mg/dL (NEG-TRACE) Urine Glucose (UA) Negative mg/dL (NEG) Urine Ketones (Stick) Negative mg/dL (NEG) Urine Blood Trace (NEG) Urine Nitrite Negative (NEG) Urine Bilirubin Negative (NEG) Urine Urobilinogen Dipstick 1.0 mg/dL (0.2 mg/dL) Urine Leukocyte Esterase Negative (NEG) Urine RBC 1-2 /HPF (0-2) Urine WBC 1-4 /HPF (0-4) Urine Squamous Epithelial Cells Occ /LPF Urine Bacteria Few /HPF (0-FEW) Nasal Screen MRSA (PCR) Positive (Negative) Hepatitis A IgM Antibody Nonreactive (Nonreactive) Hepatitis B Surface Antigen Nonreactive (Nonreactive) Hepatitis B Core IgM Antibody Nonreactive (Nonreactive) Hepatitis C IgG Antibody Reactive (Nonreactive) Test 10/25/18 20:13 10/26/18 07:00 Urine Opiates Screen Pos (NEG) Urine Methadone Screen Neg (NEG) Urine Barbiturates Neg (NEG) Urine Phencyclidine Screen Neg (NEG) Urine Amphetamine/Methamphetamine Pos (NEG) Urine Benzodiazepines Screen Neg (NEG) Urine Cocaine Screen Neg (NEG) Urine Cannabinoids Screen Pos (NEG) Urine Ethyl Alcohol Neg (NEG) White Blood Count 16.1 x10^3/uL (4.0-11.0) Red Blood Count 4.12 x10^6/uL (4.30-5.70) Hemoglobin 12.8 g/dL (13.0-17.5) Hematocrit 38.3 % (39.0-53.0) Mean Corpuscular Volume 93 fL (79-100) Mean Corpuscular Hemoglobin 31 pg (25-35) Mean Corpuscular Hemoglobin Concent 33 g/dL (31-37) Red Cell Distribution Width 13.7 % (11.5-14.5) Platelet Count 205 x10^3/uL (140-400) Neutrophils (%) (Auto) 90 % (31-73) Lymphocytes (%) (Auto) 5 % (24-48) Monocytes (%) (Auto) 4 % (0-9) Eosinophils (%) (Auto) 0 % (0-3) Basophils (%) (Auto) 1 % (0-3) Neutrophils # (Auto) 14.5 x10^3uL (1.8-7.7) Lymphocytes # (Auto) 0.9 x10^3/uL (1.0-4.8) Monocytes # (Auto) 0.6 x10^3/uL (0.0-1.1) Eosinophils # (Auto) 0.0 x10^3/uL (0.0-0.7) Basophils # (Auto) 0.2 x10^3/uL (0.0-0.2) Sodium Level 142 mmol/L (136-145) Potassium Level 4.0 mmol/L (3.5-5.1) Chloride Level 104 mmol/L (98-107) Carbon Dioxide Level 28 mmol/L (21-32) Anion Gap 10 (6-14) Blood Urea Nitrogen 10 mg/dL (8-26) Creatinine 1.0 mg/dL (0.7-1.3) Estimated GFR (Cockcroft-Gault) 85.0 Glucose Level 164 mg/dL (70-99) Calcium Level 8.7 mg/dL (8.5-10.1) Vancomycin Level Trough 4.9 mcg/mL (10.0-20.0) Vancomycin Last Dose Date 10/25/18 Vancomycin Last Dose Time 1929 Laboratory Tests Test 10/25/18 20:13 10/26/18 07:00 Urine Opiates Screen Pos (NEG) Urine Methadone Screen Neg (NEG) Urine Barbiturates Neg (NEG) Urine Phencyclidine Screen Neg (NEG) Urine Amphetamine/Methamphetamine Pos (NEG) Urine Benzodiazepines Screen Neg (NEG) Urine Cocaine Screen Neg (NEG) Urine Cannabinoids Screen Pos (NEG) Urine Ethyl Alcohol Neg (NEG) White Blood Count 16.1 x10^3/uL (4.0-11.0) Red Blood Count 4.12 x10^6/uL (4.30-5.70) Hemoglobin 12.8 g/dL (13.0-17.5) Hematocrit 38.3 % (39.0-53.0) Mean Corpuscular Volume 93 fL (79-100) Mean Corpuscular Hemoglobin 31 pg (25-35) Mean Corpuscular Hemoglobin Concent 33 g/dL (31-37) Red Cell Distribution Width 13.7 % (11.5-14.5) Platelet Count 205 x10^3/uL (140-400) Neutrophils (%) (Auto) 90 % (31-73) Lymphocytes (%) (Auto) 5 % (24-48) Monocytes (%) (Auto) 4 % (0-9) Eosinophils (%) (Auto) 0 % (0-3) Basophils (%) (Auto) 1 % (0-3) Neutrophils # (Auto) 14.5 x10^3uL (1.8-7.7) Lymphocytes # (Auto) 0.9 x10^3/uL (1.0-4.8) Monocytes # (Auto) 0.6 x10^3/uL (0.0-1.1) Eosinophils # (Auto) 0.0 x10^3/uL (0.0-0.7) Basophils # (Auto) 0.2 x10^3/uL (0.0-0.2) Sodium Level 142 mmol/L (136-145) Potassium Level 4.0 mmol/L (3.5-5.1) Chloride Level 104 mmol/L (98-107) Carbon Dioxide Level 28 mmol/L (21-32) Anion Gap 10 (6-14) Blood Urea Nitrogen 10 mg/dL (8-26) Creatinine 1.0 mg/dL (0.7-1.3) Estimated GFR (Cockcroft-Gault) 85.0 Glucose Level 164 mg/dL (70-99) Calcium Level 8.7 mg/dL (8.5-10.1) Vancomycin Level Trough 4.9 mcg/mL (10.0-20.0) Vancomycin Last Dose Date 10/25/18 Vancomycin Last Dose Time 193 Microbiology 10/24/18 Blood Culture - Preliminary, Resulted NO GROWTH AFTER 1 DAY Medications Current Medications Sodium Chloride 1,000 ml @ 1,000 mls/hr 1X ONCE IV Last administered on 10/24/18at 18:40; Start 10/24/18 at 18:30; Stop 10/24/18 at 19:29; Status DC Sodium Chloride 1,000 ml @ 1,000 mls/hr 1X ONCE IV Last administered on 10/24/18at 18:44; Start 10/24/18 at 18:30; Stop 10/24/18 at 19:29; Status DC Piperacillin Sod/ Tazobactam Sod (Zosyn Per Pharmacy) 1 each PRN DAILY PRN MC SEE COMMENTS; Start 10/24/18 at 18:30; Status UNV Sodium Chloride 500 ml @ 500 mls/hr 1X ONCE IV Last administered on 10/24/18at 19:13; Start 10/24/18 at 18:30; Stop 10/24/18 at 19:29; Status DC Piperacillin Sod/ Tazobactam Sod (Zosyn Per Pharmacy) 1 each PRN DAILY PRN MC SEE COMMENTS; Start 10/24/18 at 18:30 Vancomycin HCl (Vanco Per Pharmacy) 1 each PRN DAILY PRN MC SEE COMMENTS Last administered on 10/26/18at 15:31; Start 10/24/18 at 18:30 Acetaminophen (Tylenol) 1,000 mg 1X ONCE PO Last administered on 10/24/18at 19:12; Start 10/24/18 at 18:30; Stop 10/24/18 at 18:31; Status DC Vancomycin HCl 2 gm/Sodium Chloride 500 ml @ 250 mls/hr 1X ONCE IV Last administered on 10/24/18at 19:34; Start 10/24/18 at 19:00; Stop 10/24/18 at 20:59; Status DC Piperacillin Sod/ Tazobactam Sod 3.375 gm/Sodium Chloride 50 ml @ 100 mls/hr 1X ONCE IV Last administered on 10/24/18at 18:45; Start 10/24/18 at 18:30; Stop 10/24/18 at 18:59; Status DC Morphine Sulfate (Morphine Sulfate) 6 mg 1X ONCE IV Last administered on 10/24/18at 19:12; Start 10/24/18 at 19:00; Stop 10/24/18 at 19:01; Status DC Iohexol (Omnipaque 300 Mg/ml) 75 ml 1X ONCE IV Last administered on 10/24/18at 19:37; Start 10/24/18 at 19:15; Stop 10/24/18 at 19:19; Status DC Info (CONTRAST GIVEN -- Rx MONITORING) 1 each PRN DAILY PRN MC SEE COMMENTS; Start 10/24/18 at 19:30; Stop 10/26/18 at 19:29 Ondansetron HCl (Zofran) 4 mg 1X ONCE IV Last administered on 10/24/18at 19:33; Start 10/24/18 at 19:30; Stop 10/24/18 at 19:31; Status DC Ondansetron HCl (Zofran) 4 mg PRN Q8HRS PRN IV NAUSEA/VOMITING; Start 10/24/18 at 20:15; Stop 10/24/18 at 21:43; Status DC Morphine Sulfate (Morphine Sulfate) 4 mg PRN Q2HR PRN IV PAIN Last administered on 10/25/18at 20:04; Start 10/24/18 at 20:15; Stop 10/25/18 at 20:14; Status DC Sodium Chloride 1,000 ml @ 125 mls/hr Q8H IV Last administered on 10/25/18at 04:03; Start 10/24/18 at 20:09; Stop 10/25/18 at 20:08; Status DC Piperacillin Sod/ Tazobactam Sod 3.375 gm/Sodium Chloride 50 ml @ 100 mls/hr Q6HRS IV Last administered on 10/26/18at 12:00; Start 10/25/18 at 00:00 Vancomycin HCl 1.25 gm/Sodium Chloride 250 ml @ 167 mls/hr Q12H IV Last administered on 10/26/18at 07:30; Start 10/25/18 at 07:30; Stop 10/26/18 at 08:17; Status DC Vancomycin HCl (Vancomycin Trough Level) 1 each 1X ONCE MC Last administered on 10/26/18at 07:00; Start 10/26/18 at 07:00; Stop 10/26/18 at 07:01; Status DC Oxycodone/ Acetaminophen (Percocet 7.5/ 325) 1 tab PRN Q4HRS PRN PO PAIN Last administered on 10/25/18at 04:19; Start 10/24/18 at 21:30; Stop 10/25/18 at 17:25; Status DC Potassium Chloride (Klor-Con) 20 meq 1X ONCE PO Last administered on 10/24/18at 23:20; Start 10/24/18 at 21:30; Stop 10/24/18 at 21:32; Status DC Ketorolac Tromethamine (Toradol 30mg Vial) 30 mg 1X ONCE IV Last administered on 10/24/18at 23:21; Start 10/24/18 at 21:30; Stop 10/24/18 at 21:32; Status DC Phenyleph/Shark Oil/Min Oil/Petrol (Preparation H) 1 jose roberto PRN QID PRN RC RECTAL PAIN; Start 10/24/18 at 21:30 Nicotine Polacrilex (Nicorette Gum) 1 each PRN Q1HR PRN BC SMOKING CESSATION Last administered on 10/25/18at 11:58; Start 10/24/18 at 21:45 Nicotine (Nicoderm Cq 21mg) 1 patch PRN DAILY PRN TD SMOKING CESSATION; Start 10/24/18 at 21:45 Docusate Sodium (Colace) 100 mg DAILY PO Last administered on 10/26/18at 09:44; Start 10/25/18 at 09:00 Polyethylene Glycol (miraLAX PACKET) 17 gm DAILY PO ; Start 10/25/18 at 09:00 Ondansetron HCl (Zofran) 4 mg PRN Q8HRS PRN IV NAUSEA/VOMITING; Start 10/24/18 at 21:45 Diphenhydramine HCl (Benadryl) 25 mg PRN QHS PRN PO INSOMNIA; Start 10/24/18 at 21:45 Lactobacillus Rhamnosus (Culturelle) 1 cap BID PO Last administered on 10/26/18at 09:00; Start 10/25/18 at 11:00 Propofol (Diprivan) 200 mg STK-MED ONCE IV ; Start 10/25/18 at 15:20; Stop 10/25/18 at 15:39; Status DC Famotidine (Pepcid Vial) 20 mg STK-MED ONCE .ROUTE ; Start 10/25/18 at 15:20; Stop 10/25/18 at 15:39; Status DC Lidocaine HCl (Lidocaine Pf 2% Vial) 5 ml STK-MED ONCE .ROUTE ; Start 10/25/18 at 15:20; Stop 10/25/18 at 15:39; Status DC Ondansetron HCl (Zofran) 4 mg STK-MED ONCE .ROUTE ; Start 10/25/18 at 15:20; Stop 10/25/18 at 15:39; Status DC Dexamethasone Sodium Phosphate (Decadron) 8 mg STK-MED ONCE .ROUTE ; Start 10/25/18 at 15:20; Stop 10/25/18 at 15:39; Status DC Succinylcholine Chloride (Anectine) 200 mg STK-MED ONCE .ROUTE ; Start 10/25/18 at 15:20; Stop 10/25/18 at 15:39; Status DC Fentanyl Citrate (Fentanyl 2ml Vial) 100 mcg STK-MED ONCE .ROUTE ; Start 10/25/18 at 15:20; Stop 10/25/18 at 15:39; Status DC Midazolam HCl (Versed) 2 mg STK-MED ONCE .ROUTE ; Start 10/25/18 at 15:20; Stop 10/25/18 at 15:39; Status DC Oxycodone/ Acetaminophen (Percocet 5/325) 1 tab PRN Q4HRS PRN PO MILD PAIN 1-3; Start 10/25/18 at 17:15 Oxycodone/ Acetaminophen (Percocet 5/325) 2 tab PRN Q4HRS PRN PO MODERATE PAIN, SEVERE PAIN Last administered on 10/26/18at 13:16; Start 10/25/18 at 17:30 Fentanyl Citrate (Fentanyl 2ml Vial) 25 mcg PRN Q5MIN PRN IV MILD PAIN 1-3; Start 10/25/18 at 17:45; Stop 10/25/18 at 19:58; Status DC Fentanyl Citrate (Fentanyl 2ml Vial) 50 mcg PRN Q5MIN PRN IV MODERATE TO SEVERE PAIN Last administered on 10/25/18at 17:45; Start 10/25/18 at 17:45; Stop 10/25/18 at 19:58; Status DC Morphine Sulfate (Morphine Sulfate) 2 mg PRN Q10MIN PRN IV MILD PAIN 1-3 Last administered on 10/25/18at 18:17; Start 10/25/18 at 17:45; Stop 10/25/18 at 19:58; Status DC Hydromorphone HCl (Dilaudid) 0.5 mg PRN Q10MIN PRN IV Moderate to severe pain Last administered on 10/25/18at 18:28; Start 10/25/18 at 17:45; Stop 10/25/18 at 19:58; Status DC Ondansetron HCl (Zofran) 4 mg PRN Q6HRS PRN IV Nausea, 1st Choice; Start 10/25/18 at 17:45; Stop 10/26/18 at 17:44 Prochlorperazine Edisylate (Compazine) 5 mg PRN Q10MIN PRN IV Nausea/Vomiting, 1st Choice Last administered on 10/25/18at 18:00; Start 10/25/18 at 17:45; Stop 10/26/18 at 17:44 Rocuronium [place] (Zemuron) 50 mg STK-MED ONCE .ROUTE ; Start 10/25/18 at 17:00; Stop 10/25/18 at 17:59; Status DC Esmolol HCl (Brevibloc) 100 mg STK-MED ONCE IVP ; Start 10/25/18 at 17:00; Stop 10/25/18 at 17:59; Status DC Morphine Sulfate (Morphine Sulfate) 10 mg STK-MED ONCE .ROUTE ; Start 10/25/18 at 17:00; Stop 10/25/18 at 17:59; Status DC Propofol 20 ml @ As Directed STK-MED ONCE IV ; Start 10/25/18 at 15:17; Stop 10/25/18 at 18:04; Status DC Famotidine (Pepcid Vial) 20 mg STK-MED ONCE .ROUTE ; Start 10/25/18 at 15:17; Stop 10/25/18 at 18:04; Status DC Lidocaine HCl (Lidocaine Pf 2% Vial) 5 ml STK-MED ONCE .ROUTE ; Start 10/25/18 at 15:17; Stop 10/25/18 at 18:04; Status DC Ondansetron HCl (Zofran) 4 mg STK-MED ONCE .ROUTE ; Start 10/25/18 at 15:17; Stop 10/25/18 at 18:04; Status DC Dexamethasone Sodium Phosphate (Decadron) 4 mg STK-MED ONCE .ROUTE ; Start 10/25/18 at 15:17; Stop 10/25/18 at 18:04; Status DC Succinylcholine Chloride (Anectine) 200 mg STK-MED ONCE .ROUTE ; Start 10/25/18 at 15:17; Stop 10/25/18 at 18:04; Status DC Fentanyl Citrate (Fentanyl 2ml Vial) 100 mcg STK-MED ONCE .ROUTE ; Start 10/25/18 at 15:17; Stop 10/25/18 at 18:04; Status DC Midazolam HCl (Versed) 2 mg STK-MED ONCE .ROUTE ; Start 10/25/18 at 15:17; Stop 10/25/18 at 18:04; Status DC Bupivacaine HCl/ Epinephrine Bitart (Sensorcain-Mpf Epi 0.5%-[id number]) 30 ml STK-MED ONCE .ROUTE ; Start 10/25/18 at 14:35; Stop 10/25/18 at 18:04; Status DC Rocuronium [place] (Zemuron) 50 mg STK-MED ONCE .ROUTE ; Start 10/25/18 at 16:30; Stop 10/25/18 at 18:05; Status DC Esmolol HCl (Brevibloc) 100 mg STK-MED ONCE IVP ; Start 10/25/18 at 16:38; Stop 10/25/18 at 18:05; Status DC Morphine Sulfate (Morphine Sulfate) 10 mg STK-MED ONCE .ROUTE ; Start 10/25/18 at 17:00; Stop 10/25/18 at 18:05; Status DC Fentanyl Citrate (Fentanyl 2ml Vial) 100 mcg STK-MED ONCE .ROUTE ; Start 10/25/18 at 17:33; Stop 10/25/18 at 18:05; Status DC Morphine Sulfate (Morphine Sulfate) 2 mg STK-MED ONCE .ROUTE ; Start 10/25/18 at 17:56; Stop 10/25/18 at 18:06; Status DC Vancomycin HCl 1.25 gm/Sodium Chloride 250 ml @ 167 mls/hr Q8H IV ; Start 10/26/18 at 09:00; Stop 10/26/18 at 13:16; Status DC Vancomycin HCl (Vancomycin Trough Level) 1 each 1X ONCE MC ; Start 10/27/18 at 11:30; Stop 10/27/18 at 11:31 Vancomycin HCl 1.25 gm/Sodium Chloride 250 ml @ 167 mls/hr Q8H IV ; Start 10/26/18 at 20:00 Morphine Sulfate (Morphine Sulfate) 6 mg PRN Q4HRS PRN IV PAIN Last administered on 10/26/18at 15:50; Start 10/26/18 at 15:45 Morphine Sulfate (Morphine Sulfate) 2 mg STK-MED ONCE .ROUTE ; Start 10/26/18 at 15:46; Stop 10/26/18 at 15:47; Status DC Active Scripts Active Vitals/I & O Vital Sign - Last 24 Hours 10/25/18 10/25/18 10/25/18 10/25/18 17:11 17:11 17:27 17:35 Temp 100 100.0 100.0 100.0 Pulse 120 120 Resp 24 18 22 B/P (MAP) 134/63 143/67 Pulse Ox 91 100 100 O2 Delivery Simple Mask Mask Simple Mask Simple Mask O2 Flow Rate 10 8 10 10.0 10/25/18 10/25/18 10/25/18 10/25/18 17:42 17:45 17:57 18:00 Pulse 110 104 Resp 12 20 24 24 B/P (MAP) 125/54 125/54 Pulse Ox 100 97 O2 Delivery Simple Mask Room Air Simple Mask Room Air O2 Flow Rate 4 4 10/25/18 10/25/18 10/25/18 10/25/18 18:15 18:17 18:28 18:30 Pulse 100 98 Resp 21 24 23 20 B/P (MAP) 136/39 138/74 Pulse Ox 100 97 O2 Delivery Room Air Room Air Room Air Room Air 10/25/18 10/25/18 10/25/18 10/25/18 19:53 20:00 20:04 22:25 Temp 98.1 98.1 Resp 20 20 B/P (MAP) 115/37 (63) O2 Delivery Room Air Room Air Room Air Room Air 10/25/18 10/26/18 10/26/18 10/26/18 23:47 03:43 03:53 04:43 Temp 98.0 97.7 98.0 97.7 Pulse 85 85 Resp 18 20 18 20 B/P (MAP) 137/70 (92) 137/70 (92) Pulse Ox 93 97 O2 Delivery Room Air Room Air Room Air 10/26/18 10/26/18 10/26/18 10/26/18 07:00 08:00 11:00 13:16 Temp 97.5 98.2 97.5 98.2 Pulse 76 100 Resp 18 18 B/P (MAP) 117/71 (86) 108/69 (82) Pulse Ox 98 98 O2 Delivery Room Air Room Air Room Air Room Air 10/26/18 10/26/18 10/26/18 14:38 15:00 15:50 Temp 98.0 98.0 Pulse 93 Resp 18 B/P (MAP) 103/72 (82) Pulse Ox 100 O2 Delivery Room Air Room Air Room Air Intake and Output 10/25/18 10/25/18 10/26/18 15:00 23:00 07:00 Intake Total 0 ml 0 ml 880 ml Output Total 650 ml 1000 ml Balance 0 ml -650 ml -120 ml JJ WOOD MD Oct 26, 2018 16:14
[2018-10-27] MEDS: MORPHINE SULFATE 10 MG/ML VIAL. IV PRN ×5 (00:54→23:48)
[2018-10-27 03:44] VITALS: BP 111/68
[2018-10-27] MEDS: VANCOMYCIN 1.25 GM in IV NORMAL SALINE 250ML 250 ML IV SCH ×3 (03:59→19:38)
[2018-10-27] MEDS: PIPERACILLIN/TAZOBACTAM 3.375 GM in IV NORMAL SALINE 50ML 50 ML IV SCH ×4 (05:42→23:47)
[2018-10-27] MEDS: oxyCODONE/APAP 5/325 1 TAB TABLET PO PRN ×4 (05:49→21:43)
[2018-10-27 06:37] LABS: CREATININE 1.1 mg/dL (0.7-1.3); GFR 76.2
[2018-10-27 07:20] VITALS: BP 110/67
[2018-10-27] MEDS: POLYETHYLENE GLYCOL 3350 17 GM PACKET. PO SCH (08:03)
[2018-10-27] MEDS: DOCUSATE SODIUM 100 MG CAPSULE. PO SCH ×2 (08:03→08:59)
[2018-10-27] MEDS: LACTOBACILLUS RHAMNOSUS GG 1 CAPSULE. PO SCH ×3 (08:03→19:38)
--- NOTE | 2018-10-27 10:11 | PDOC ---
Infectious Disease Note Subjective Subjective Not eating because avoiding BMS Less pain. No F/C/S/N/V/D/Rash/SOA ROS ROS o/w neg Vital Sign Vital Signs Vital Signs Date Time Temp Pulse Resp B/P (MAP) Pulse Ox O2 Delivery O2 Flow Rate FiO2 10/27/18 07:20 97.2 78 16 110/67 (81) 98 Room Air 97.2 Physical Exam PHYSICAL EXAM CONSTITUTIONAL: He is lying in bed. He appears comfortable. He is on his right side. HEENT: Pupils are equal and reactive. Normal conjunctivae. Oral cavity, pharynx is clear. NECK: Supple. No JVD. LUNGS: Clear to auscultation. HEART: S1, S2, without gross murmur. ABDOMEN: Obese, soft. No guarding or rebound. EXTREMITIES: Without clubbing, cyanosis or gross edema. SKIN: Warm to touch. He has multiple tattoos. In his right buttock area is dressed and into the upper part of his thigh, there is improved erythema and warmth. There is no gross drainage. NEUROLOGIC: He is nonfocal and appropriate. PSYCHIATRIC: Affect is flat. Labs Lab Laboratory Tests Test 10/27/18 05:50 Creatinine 1.1 mg/dL (0.7-1.3) Estimated GFR (Cockcroft-Gault) 76.2 Micro Microbiology 10/24/18 Blood Culture - Preliminary, Resulted NO GROWTH AFTER 1 DAY Objective Assessment fever - better leukocytosis -better but now s/p Dexamethasone 6/4 right Perirectal abscess s/p I and D 6/4 GPC in pairs so far H/o MRSA - + Nasal screen Hep C + Substance abuse - UDS + for amphet/Meth Plan Plan of Care Cont Vanc and Zosyn F/u labs and cults/HIV Wound care per surg JESSICA PRO MD Oct 27, 2018 10:11
--- NOTE | 2018-10-27 10:49 | PDOC ---
[facility] [facility] PROGRESS NOTE Chief Complaint Chief Complaint Rectal abscess(through and through) Postop day 3 I&D and he may be going for another surgery Colitis IV drug use Probable sepsis History of Present Illness History of Present Illness Mr. Sharp, is a 33 year old male presenting with 3 days of worsening buttock pain. he thought that the pain would go away and has now worsened. and now he had a fever and now the pain is sharp and severe. 10/10 with movement and radiates diffusely. because nausea no abdominal pain symptoms are moderate worsening. he has been sober for some time, prior IV drug use. [id number] Patient seen and examined again this morning He is still in pain Is afraid to have a bowel movement because it will hurt the wounds discussed with case management and wound care nurse The wound care 6 [place] he may have to go back for another procedure because this is a through and through wound actually has 2 wounds Patient was seen and examined this morning He is a frail-appearing thin white male with multiple tattoos Currently getting a PICC line Vitals Vitals Vital Signs Date Time Temp Pulse Resp B/P (MAP) Pulse Ox O2 Delivery O2 Flow Rate FiO2 10/27/18 07:20 97.2 78 16 110/67 (81) 98 Room Air 97.2 Physical Exam Physical Exam CONSTITUTIONAL: He is lying in bed. He appears comfortable. He is on his right side. HEENT: Pupils are equal and reactive. Normal conjunctivae. Oral cavity, pharynx is clear. NECK: Supple. No JVD. LUNGS: Clear to auscultation. HEART: S1, S2, without gross murmur. ABDOMEN: Obese, soft. No guarding or rebound. EXTREMITIES: Without clubbing, cyanosis or gross edema. SKIN: Warm to touch. He has multiple tattoos. In his right buttock area is dressed and into the upper part of his thigh, there is improved erythema and warmth. There is no gross drainage. NEUROLOGIC: He is nonfocal and appropriate. PSYCHIATRIC: Affect is flat. General: moderate distress Heart: Normal S1, Normal S2, Other (tachy) Lungs: Clear Abdomen: Soft, Other (tender) Extremities: No clubbing, No cyanosis, Other (some erythema does extend down thigh ) Skin: Other (right perirectal area with erythema, induration, drainage purulent, many tattoos) Labs Labs: Laboratory Tests Test 10/27/18 05:50 Creatinine 1.1 mg/dL (0.7-1.3) Estimated GFR (Cockcroft-Gault) 76.2 Assessment and Plan Assessmemt and Plan Rectal abscess(through and through) Postop day 3 I&D and he may be going for another surgery Colitis IV drug use Probable sepsis Plan IV antibiotics When necessary narcotics Aggressive wound penitentiary meds PT OT Frequent labs DVT prophylaxis Full code Comment Review of Relevant I have reviewed the following items janina (where applicable) has been applied. Labs Laboratory Tests Test 10/25/18 20:13 10/26/18 07:00 10/27/18 05:50 Urine Opiates Screen Pos (NEG) Urine Methadone Screen Neg (NEG) Urine Barbiturates Neg (NEG) Urine Phencyclidine Screen Neg (NEG) Urine Amphetamine/Methamphetamine Pos (NEG) Urine Benzodiazepines Screen Neg (NEG) Urine Cocaine Screen Neg (NEG) Urine Cannabinoids Screen Pos (NEG) Urine Ethyl Alcohol Neg (NEG) White Blood Count 16.1 x10^3/uL (4.0-11.0) Red Blood Count 4.12 x10^6/uL (4.30-5.70) Hemoglobin 12.8 g/dL (13.0-17.5) Hematocrit 38.3 % (39.0-53.0) Mean Corpuscular Volume 93 fL (79-100) Mean Corpuscular Hemoglobin 31 pg (25-35) Mean Corpuscular Hemoglobin Concent 33 g/dL (31-37) Red Cell Distribution Width 13.7 % (11.5-14.5) Platelet Count 205 x10^3/uL (140-400) Neutrophils (%) (Auto) 90 % (31-73) Lymphocytes (%) (Auto) 5 % (24-48) Monocytes (%) (Auto) 4 % (0-9) Eosinophils (%) (Auto) 0 % (0-3) Basophils (%) (Auto) 1 % (0-3) Neutrophils # (Auto) 14.5 x10^3uL (1.8-7.7) Lymphocytes # (Auto) 0.9 x10^3/uL (1.0-4.8) Monocytes # (Auto) 0.6 x10^3/uL (0.0-1.1) Eosinophils # (Auto) 0.0 x10^3/uL (0.0-0.7) Basophils # (Auto) 0.2 x10^3/uL (0.0-0.2) Sodium Level 142 mmol/L (136-145) Potassium Level 4.0 mmol/L (3.5-5.1) Chloride Level 104 mmol/L (98-107) Carbon Dioxide Level 28 mmol/L (21-32) Anion Gap 10 (6-14) Blood Urea Nitrogen 10 mg/dL (8-26) Creatinine 1.0 mg/dL (0.7-1.3) 1.1 mg/dL (0.7-1.3) Estimated GFR (Cockcroft-Gault) 85.0 76.2 Glucose Level 164 mg/dL (70-99) Calcium Level 8.7 mg/dL (8.5-10.1) Vancomycin Level Trough 4.9 mcg/mL (10.0-20.0) Vancomycin Last Dose Date 10/25/18 Vancomycin Last Dose Time 1930 Laboratory Tests Test 10/27/18 05:50 Creatinine 1.1 mg/dL (0.7-1.3) Estimated GFR (Cockcroft-Gault) 76.2 Microbiology 10/24/18 Blood Culture - Preliminary, Resulted NO GROWTH AFTER 2 DAYS 10/25/18 Anaerobic/Aerobic Culture, Resulted Pending 10/25/18 Anaerobic Culture Result 1 ([place]), Resulted Pending 10/25/18 Aerobic Culture, Resulted Pending 10/25/18 Aerobic Culture Result 1 ([place]), Resulted Pending 10/25/18 Gram Stain - Final, Resulted 10/25/18 Gram Stain Result 1 ([place]) - Final, Resulted 10/25/18 Gram Stain Result 2 ([place]) - Final, Resulted Medications Current Medications Sodium Chloride 1,000 ml @ 1,000 mls/hr 1X ONCE IV Last administered on 10/24/18at 18:40; Start 10/24/18 at 18:30; Stop 10/24/18 at 19:29; Status DC Sodium Chloride 1,000 ml @ 1,000 mls/hr 1X ONCE IV Last administered on 10/24/18at 18:44; Start 10/24/18 at 18:30; Stop 10/24/18 at 19:29; Status DC Piperacillin Sod/ Tazobactam Sod (Zosyn Per Pharmacy) 1 each PRN DAILY PRN MC SEE COMMENTS; Start 10/24/18 at 18:30; Status UNV Sodium Chloride 500 ml @ 500 mls/hr 1X ONCE IV Last administered on 10/24/18at 19:13; Start 10/24/18 at 18:30; Stop 10/24/18 at 19:29; Status DC Piperacillin Sod/ Tazobactam Sod (Zosyn Per Pharmacy) 1 each PRN DAILY PRN MC SEE COMMENTS; Start 10/24/18 at 18:30 Vancomycin HCl (Vanco Per Pharmacy) 1 each PRN DAILY PRN MC SEE COMMENTS Last administered on 10/26/18at 15:31; Start 10/24/18 at 18:30 Acetaminophen (Tylenol) 1,000 mg 1X ONCE PO Last administered on 10/24/18at 19:12; Start 10/24/18 at 18:30; Stop 10/24/18 at 18:31; Status DC Vancomycin HCl 2 gm/Sodium Chloride 500 ml @ 250 mls/hr 1X ONCE IV Last administered on 10/24/18at 19:34; Start 10/24/18 at 19:00; Stop 10/24/18 at 20:59; Status DC Piperacillin Sod/ Tazobactam Sod 3.375 gm/Sodium Chloride 50 ml @ 100 mls/hr 1X ONCE IV Last administered on 10/24/18at 18:45; Start 10/24/18 at 18:30; Stop 10/24/18 at 18:59; Status DC Morphine Sulfate (Morphine Sulfate) 6 mg 1X ONCE IV Last administered on 10/24/18at 19:12; Start 10/24/18 at 19:00; Stop 10/24/18 at 19:01; Status DC Iohexol (Omnipaque 300 Mg/ml) 75 ml 1X ONCE IV Last administered on 10/24/18at 19:37; Start 10/24/18 at 19:15; Stop 10/24/18 at 19:19; Status DC Info (CONTRAST GIVEN -- Rx MONITORING) 1 each PRN DAILY PRN MC SEE COMMENTS; Start 10/24/18 at 19:30; Stop 10/26/18 at 19:29; Status DC Ondansetron HCl (Zofran) 4 mg 1X ONCE IV Last administered on 10/24/18at 19:33; Start 10/24/18 at 19:30; Stop 10/24/18 at 19:31; Status DC Ondansetron HCl (Zofran) 4 mg PRN Q8HRS PRN IV NAUSEA/VOMITING; Start 10/24/18 at 20:15; Stop 10/24/18 at 21:43; Status DC Morphine Sulfate (Morphine Sulfate) 4 mg PRN Q2HR PRN IV PAIN Last administered on 10/25/18 20:04; Start 10/24/18 at 20:15; Stop 10/25/18 at 20:14; Status DC Sodium Chloride 1,000 ml @ 125 mls/hr Q8H IV Last administered on 10/25/18 04:03; Start 10/24/18 at 20:09; Stop 10/25/18 at 20:08; Status DC Piperacillin Sod/ Tazobactam Sod 3.375 gm/Sodium Chloride 50 ml @ 100 mls/hr Q6HRS IV Last administered on 10/27/18 05:42; Start 10/25/18 at 00:00 Vancomycin HCl 1.25 gm/Sodium Chloride 250 ml @ 167 mls/hr Q12H IV Last administered on 10/26/18 07:30; Start 10/25/18 at 07:30; Stop 10/26/18 at 08:17; Status DC Vancomycin HCl (Vancomycin Trough Level) 1 each 1X ONCE MC Last administered on 10/26/18 07:00; Start 10/26/18 at 07:00; Stop 10/26/18 at 07:01; Status DC Oxycodone/ Acetaminophen (Percocet 7.5/ 325) 1 tab PRN Q4HRS PRN PO PAIN Last administered on 10/25/18 04:19; Start 10/24/18 at 21:30; Stop 10/25/18 at 17:25; Status DC Potassium Chloride (Klor-Con) 20 meq 1X ONCE PO Last administered on 10/24/18 23:20; Start 10/24/18 at 21:30; Stop 10/24/18 at 21:32; Status DC Ketorolac Tromethamine (Toradol 30mg Vial) 30 mg 1X ONCE IV Last administered on 10/24/18 23:21; Start 10/24/18 at 21:30; Stop 10/24/18 at 21:32; Status DC Phenyleph/Shark Oil/Min Oil/Petrol (Preparation H) 1 jose roberto PRN QID PRN RC RECTAL PAIN; Start 10/24/18 at 21:30 Nicotine Polacrilex (Nicorette Gum) 1 each PRN Q1HR PRN BC SMOKING CESSATION Last administered on 10/25/18at 11:58; Start 10/24/18 at 21:45 Nicotine (Nicoderm Cq 21mg) 1 patch PRN DAILY PRN TD SMOKING CESSATION; Start 10/24/18 at 21:45 Docusate Sodium (Colace) 100 mg DAILY PO Last administered on 10/26/18at 09:44; Start 10/25/18 at 09:00 Polyethylene Glycol (miraLAX PACKET) 17 gm DAILY PO ; Start 10/25/18 at 09:00 Ondansetron HCl (Zofran) 4 mg PRN Q8HRS PRN IV NAUSEA/VOMITING; Start 10/24/18 at 21:45 Diphenhydramine HCl (Benadryl) 25 mg PRN QHS PRN PO INSOMNIA; Start 10/24/18 at 21:45 Lactobacillus Rhamnosus (Culturelle) 1 cap BID PO Last administered on 10/26/18at 20:20; Start 10/25/18 at 11:00 Propofol (Diprivan) 200 mg STK-MED ONCE IV ; Start 10/25/18 at 15:20; Stop 10/25/18 at 15:39; Status DC Famotidine (Pepcid Vial) 20 mg STK-MED ONCE .ROUTE ; Start 10/25/18 at 15:20; Stop 10/25/18 at 15:39; Status DC Lidocaine HCl (Lidocaine Pf 2% Vial) 5 ml STK-MED ONCE .ROUTE ; Start 10/25/18 at 15:20; Stop 10/25/18 at 15:39; Status DC Ondansetron HCl (Zofran) 4 mg STK-MED ONCE .ROUTE ; Start 10/25/18 at 15:20; Stop 10/25/18 at 15:39; Status DC Dexamethasone Sodium Phosphate (Decadron) 8 mg STK-MED ONCE .ROUTE ; Start 10/25/18 at 15:20; Stop 10/25/18 at 15:39; Status DC Succinylcholine Chloride (Anectine) 200 mg STK-MED ONCE .ROUTE ; Start 10/25/18 at 15:20; Stop 10/25/18 at 15:39; Status DC Fentanyl Citrate (Fentanyl 2ml Vial) 100 mcg STK-MED ONCE .ROUTE ; Start 10/25/18 at 15:20; Stop 10/25/18 at 15:39; Status DC Midazolam HCl (Versed) 2 mg STK-MED ONCE .ROUTE ; Start 10/25/18 at 15:20; Stop 10/25/18 at 15:39; Status DC Oxycodone/ Acetaminophen (Percocet 5/325) 1 tab PRN Q4HRS PRN PO MILD PAIN 1-3; Start 10/25/18 at 17:15 Oxycodone/ Acetaminophen (Percocet 5/325) 2 tab PRN Q4HRS PRN PO MODERATE PAIN, SEVERE PAIN Last administered on 10/27/18at 05:49; Start 10/25/18 at 17:30 Fentanyl Citrate (Fentanyl 2ml Vial) 25 mcg PRN Q5MIN PRN IV MILD PAIN 1-3; Start 10/25/18 at 17:45; Stop 10/25/18 at 19:58; Status DC Fentanyl Citrate (Fentanyl 2ml Vial) 50 mcg PRN Q5MIN PRN IV MODERATE TO SEVERE PAIN Last administered on 10/25/18at 17:45; Start 10/25/18 at 17:45; Stop 10/25/18 at 19:58; Status DC Morphine Sulfate (Morphine Sulfate) 2 mg PRN Q10MIN PRN IV MILD PAIN 1-3 Last administered on 10/25/18at 18:17; Start 10/25/18 at 17:45; Stop 10/25/18 at 19:58; Status DC Hydromorphone HCl (Dilaudid) 0.5 mg PRN Q10MIN PRN IV Moderate to severe pain Last administered on 10/25/18at 18:28; Start 10/25/18 at 17:45; Stop 10/25/18 at 19:58; Status DC Ondansetron HCl (Zofran) 4 mg PRN Q6HRS PRN IV Nausea, 1st Choice; Start 10/25/18 at 17:45; Stop 10/26/18 at 17:44; Status DC Prochlorperazine Edisylate (Compazine) 5 mg PRN Q10MIN PRN IV Nausea/Vomiting, 1st Choice Last administered on 10/25/18at 18:00; Start 10/25/18 at 17:45; Stop 10/26/18 at 17:44; Status DC Rocuronium [place] (Zemuron) 50 mg STK-MED ONCE .ROUTE ; Start 10/25/18 at 17:00; Stop 10/25/18 at 17:59; Status DC Esmolol HCl (Brevibloc) 100 mg STK-MED ONCE IVP ; Start 10/25/18 at 17:00; Stop 10/25/18 at 17:59; Status DC Morphine Sulfate (Morphine Sulfate) 10 mg STK-MED ONCE .ROUTE ; Start 10/25/18 at 17:00; Stop 10/25/18 at 17:59; Status DC Propofol 20 ml @ As Directed STK-MED ONCE IV ; Start 10/25/18 at 15:17; Stop 10/25/18 at 18:04; Status DC Famotidine (Pepcid Vial) 20 mg STK-MED ONCE .ROUTE ; Start 10/25/18 at 15:17; Stop 10/25/18 at 18:04; Status DC Lidocaine HCl (Lidocaine Pf 2% Vial) 5 ml STK-MED ONCE .ROUTE ; Start 10/25/18 at 15:17; Stop 10/25/18 at 18:04; Status DC Ondansetron HCl (Zofran) 4 mg STK-MED ONCE .ROUTE ; Start 10/25/18 at 15:17; Stop 10/25/18 at 18:04; Status DC Dexamethasone Sodium Phosphate (Decadron) 4 mg STK-MED ONCE .ROUTE ; Start 10/25/18 at 15:17; Stop 10/25/18 at 18:04; Status DC Succinylcholine Chloride (Anectine) 200 mg STK-MED ONCE .ROUTE ; Start 10/25/18 at 15:17; Stop 10/25/18 at 18:04; Status DC Fentanyl Citrate (Fentanyl 2ml Vial) 100 mcg STK-MED ONCE .ROUTE ; Start 10/25/18 at 15:17; Stop 10/25/18 at 18:04; Status DC Midazolam HCl (Versed) 2 mg STK-MED ONCE .ROUTE ; Start 10/25/18 at 15:17; Stop 10/25/18 at 18:04; Status DC Bupivacaine HCl/ Epinephrine Bitart (Sensorcain-Mpf Epi 0.5%-[id number]) 30 ml STK-MED ONCE .ROUTE ; Start 10/25/18 at 14:35; Stop 10/25/18 at 18:04; Status DC Rocuronium [place] (Zemuron) 50 mg STK-MED ONCE .ROUTE ; Start 10/25/18 at 16:30; Stop 10/25/18 at 18:05; Status DC Esmolol HCl (Brevibloc) 100 mg STK-MED ONCE IVP ; Start 10/25/18 at 16:38; Stop 10/25/18 at 18:05; Status DC Morphine Sulfate (Morphine Sulfate) 10 mg STK-MED ONCE .ROUTE ; Start 10/25/18 at 17:00; Stop 10/25/18 at 18:05; Status DC Fentanyl Citrate (Fentanyl 2ml Vial) 100 mcg STK-MED ONCE .ROUTE ; Start 10/25/18 at 17:33; Stop 10/25/18 at 18:05; Status DC Morphine Sulfate (Morphine Sulfate) 2 mg STK-MED ONCE .ROUTE ; Start 10/25/18 at 17:56; Stop 10/25/18 at 18:06; Status DC Vancomycin HCl 1.25 gm/Sodium Chloride 250 ml @ 167 mls/hr Q8H IV ; Start 10/26/18 at 09:00; Stop 10/26/18 at 13:16; Status DC Vancomycin HCl (Vancomycin Trough Level) 1 each 1X ONCE MC ; Start 10/27/18 at 11:30; Stop 10/27/18 at 11:31 Vancomycin HCl 1.25 gm/Sodium Chloride 250 ml @ 167 mls/hr Q8H IV Last administered on 10/27/18at 03:59; Start 10/26/18 at 20:00 Morphine Sulfate (Morphine Sulfate) 6 mg PRN Q4HRS PRN IV PAIN Last administered on 10/27/18at 06:33; Start 10/26/18 at 15:45 Morphine Sulfate (Morphine Sulfate) 2 mg STK-MED ONCE .ROUTE ; Start 10/26/18 at 15:46; Stop 10/26/18 at 15:47; Status DC Active Scripts Active Vitals/I & O Vital Sign - Last 24 Hours 10/26/18 10/26/18 10/26/18 10/26/18 11:00 13:16 15:00 15:50 Temp 98.2 98.0 98.2 98.0 Pulse 100 93 Resp 18 18 B/P (MAP) 108/69 (82) 103/72 (82) Pulse Ox 98 100 O2 Delivery Room Air Room Air Room Air Room Air 10/26/18 10/26/18 10/26/18 10/26/18 19:00 19:21 20:00 20:20 Temp 97.8 97.8 Pulse 69 Resp 16 16 16 B/P (MAP) 129/84 (99) Pulse Ox 99 100 100 O2 Delivery Room Air Room Air Room Air Room Air 10/26/18 10/26/18 10/27/18 10/27/18 23:41 23:50 00:54 01:00 Temp 97.6 97.6 Pulse 98 Resp 18 16 16 B/P (MAP) 115/71 (86) Pulse Ox 98 98 98 O2 Delivery Room Air Room Air Room Air 10/27/18 10/27/18 10/27/18 10/27/18 01:30 03:44 05:49 06:33 Temp 97.7 97.7 Pulse 85 Resp 16 16 16 B/P (MAP) 111/68 (82) Pulse Ox 98 98 98 98 O2 Delivery Room Air Room Air Room Air 10/27/18 10/27/18 10/27/18 07:03 07:03 07:20 Temp 97.2 97.2 Pulse 78 Resp 16 16 16 B/P (MAP) 110/67 (81) Pulse Ox 98 O2 Delivery Room Air Room Air Room Air Intake and Output 10/26/18 10/26/18 10/27/18 15:00 23:00 07:00 Intake Total 150 ml 250 ml 1280 ml Output Total 300 ml Balance -150 ml 250 ml 1280 ml RACHELLE ROSS III DO Oct 27, 2018 10:49
--- NOTE | 2018-10-27 11:12 | PDOC ---
Subjective: Subjective: Pain might be a little better. Not eating much and refusing Miralax and Colace because he wants to avoid stooling. Objective: Vital Signs: Vital Signs Date Time Temp Pulse Resp B/P (MAP) Pulse Ox O2 Delivery O2 Flow Rate FiO2 10/27/18 07:20 97.2 78 16 110/67 (81) 98 Room Air 97.2 Labs: Laboratory Tests Test 10/27/18 05:50 Creatinine 1.1 mg/dL Estimated GFR (Cockcroft-Gault) 76.2 ANAEROBIC-AEROBIC CULTURE PENDING ANAEROBIC RES 1 PENDING AEROBIC CULT PENDING AEROBIC RES 1 PENDING GRAM STAIN Final Final report GRAM STAIN RES 1 Final Comment No white blood cells seen. GRAM STAIN RES 2 Final Comment Many gram positive cocci in pairs BLOOD CULTURE Preliminary NO GROWTH AFTER 2 DAYS PE: GEN: NAD, doesn't open eyes NEURO/PSYCH: A & O 3, flat A/P: Perirectal and gluteal abscess s/p I&D Leukocytosis - improving H/o Hep C - PCR pending Substance abuse -- Avoiding stooling. AMINA ALEXANDER Oct 27, 2018 11:12
[2018-10-27 11:14] VITALS: BP 123/80
--- NOTE | 2018-10-27 12:13 | PDOC ---
SURGICAL PROGRESS NOTE Subjective still pain to wound area Vital Signs Vital Signs Date Time Temp Pulse Resp B/P (MAP) Pulse Ox O2 Delivery O2 Flow Rate FiO2 10/27/18 11:14 97.5 69 18 123/80 (94) 99 Room Air 97.5 I&O Intake and Output 10/27/18 06:59 Intake Total 1680 ml Output Total 300 ml Balance 1380 ml Intake Oral 1680 ml Output Urine Total 300 ml General: Alert, Oriented X3, Cooperative, No acute distress Skin: Other (perriectal area, packing in place, still surrounding erythema and tenderness, erythema improved ) Labs Laboratory Tests Test 10/25/18 20:13 10/26/18 07:00 10/27/18 05:50 Urine Opiates Screen Pos (NEG) Urine Methadone Screen Neg (NEG) Urine Barbiturates Neg (NEG) Urine Phencyclidine Screen Neg (NEG) Urine Amphetamine/Methamphetamine Pos (NEG) Urine Benzodiazepines Screen Neg (NEG) Urine Cocaine Screen Neg (NEG) Urine Cannabinoids Screen Pos (NEG) Urine Ethyl Alcohol Neg (NEG) White Blood Count 16.1 x10^3/uL (4.0-11.0) Red Blood Count 4.12 x10^6/uL (4.30-5.70) Hemoglobin 12.8 g/dL (13.0-17.5) Hematocrit 38.3 % (39.0-53.0) Mean Corpuscular Volume 93 fL (79-100) Mean Corpuscular Hemoglobin 31 pg (25-35) Mean Corpuscular Hemoglobin Concent 33 g/dL (31-37) Red Cell Distribution Width 13.7 % (11.5-14.5) Platelet Count 205 x10^3/uL (140-400) Neutrophils (%) (Auto) 90 % (31-73) Lymphocytes (%) (Auto) 5 % (24-48) Monocytes (%) (Auto) 4 % (0-9) Eosinophils (%) (Auto) 0 % (0-3) Basophils (%) (Auto) 1 % (0-3) Neutrophils # (Auto) 14.5 x10^3uL (1.8-7.7) Lymphocytes # (Auto) 0.9 x10^3/uL (1.0-4.8) Monocytes # (Auto) 0.6 x10^3/uL (0.0-1.1) Eosinophils # (Auto) 0.0 x10^3/uL (0.0-0.7) Basophils # (Auto) 0.2 x10^3/uL (0.0-0.2) Sodium Level 142 mmol/L (136-145) Potassium Level 4.0 mmol/L (3.5-5.1) Chloride Level 104 mmol/L (98-107) Carbon Dioxide Level 28 mmol/L (21-32) Anion Gap 10 (6-14) Blood Urea Nitrogen 10 mg/dL (8-26) Creatinine 1.0 mg/dL (0.7-1.3) 1.1 mg/dL (0.7-1.3) Estimated GFR (Cockcroft-Gault) 85.0 76.2 Glucose Level 164 mg/dL (70-99) Calcium Level 8.7 mg/dL (8.5-10.1) Vancomycin Level Trough 4.9 mcg/mL (10.0-20.0) Vancomycin Last Dose Date 10/25/18 Vancomycin Last Dose Time 1930 Laboratory Tests Test 10/27/18 05:50 Creatinine 1.1 mg/dL (0.7-1.3) Estimated GFR (Cockcroft-Gault) 76.2 Assessment/Plan s/p I&D continue wound care, abALLISON Kent APRN Oct 27, 2018 12:13
[2018-10-27 12:48] LABS: VANC TR 13.8 mcg/mL (10.0-20.0)
[2018-10-27] MEDS: VANCOMYCIN PER PHARMACY MC PRN (13:23)
[2018-10-27 15:14] VITALS: BP 130/72
[2018-10-27 19:40] VITALS: BP 131/84
[2018-10-27 23:29] VITALS: BP 118/76
[2018-10-28] MEDS: oxyCODONE/APAP 5/325 1 TAB TABLET PO PRN ×2 (01:34→09:00)
[2018-10-28] MEDS: diphenhydrAMINE HCL 25 MG CAPSULE PO PRN ×2 (01:34→23:11)
[2018-10-28 03:00] VITALS: BP 124/76
[2018-10-28] MEDS: VANCOMYCIN 1.25 GM in IV NORMAL SALINE 250ML 250 ML IV SCH ×3 (04:00→19:58)
[2018-10-28] MEDS: MORPHINE SULFATE 10 MG/ML VIAL. IV PRN ×4 (05:55→19:58)
[2018-10-28] MEDS: PIPERACILLIN/TAZOBACTAM 3.375 GM in IV NORMAL SALINE 50ML 50 ML IV SCH ×3 (05:56→18:35)
[2018-10-28 07:10] VITALS: BP 111/80
[2018-10-28] MEDS: DOCUSATE SODIUM 100 MG CAPSULE. PO SCH (09:00)
[2018-10-28] MEDS: LACTOBACILLUS RHAMNOSUS GG 1 CAPSULE. PO SCH ×2 (09:00→21:28)
[2018-10-28] MEDS: POLYETHYLENE GLYCOL 3350 17 GM PACKET. PO SCH (09:00)
[2018-10-28 09:18] LABS: HCV ULTRA QUANT PCR 62500 IU/mL (.)
--- NOTE | 2018-10-28 10:12 | PDOC ---
Subjective: Subjective: "Not hungry." Pain isn't better. Objective: Objective: D/w RN - refused breakfast. Vital Signs: Vital Signs Date Time Temp Pulse Resp B/P (MAP) Pulse Ox O2 Delivery O2 Flow Rate FiO2 10/28/18 09:00 18 Room Air 10/28/18 07:10 97.6 75 111/80 (90) 98 97.6 10/27/18 21:43 10.0 Labs: Laboratory Tests Test 10/27/18 12:00 Vancomycin Level Trough 13.8 mcg/mL Vancomycin Last Dose Date 10/27/18 Vancomycin Last Dose Time 0400 ANAEROBIC-AEROBIC CULTURE PENDING ANAEROBIC RES 1 PENDING AEROBIC CULT Preliminary Preliminary report AEROBIC RES 1 Preliminary Staphylococcus aureus 4+ GRAM STAIN Final Final report GRAM STAIN RES 1 Final Comment No white blood cells seen. GRAM STAIN RES 2 Final Comment Many gram positive cocci in pairs BLOOD CULTURE Preliminary NO GROWTH AFTER 3 DAYS PE: GEN: NAD ABD: BS+, non-tender NEURO/PSYCH: A & O 3, flat A/P: Perirectal and gluteal abscess s/p I&D H/o Hep C Substance abuse -- Continue per surgery and ID. AMINA ALEXANDER Oct 28, 2018 10:12
[2018-10-28 11:00] VITALS: BP 111/84
--- NOTE | 2018-10-28 12:47 | PDOC ---
SURGICAL PROGRESS NOTE Subjective still with pain no emesis Vital Signs Vital Signs Date Time Temp Pulse Resp B/P (MAP) Pulse Ox O2 Delivery O2 Flow Rate FiO2 10/28/18 11:49 18 Room Air 10/28/18 11:00 97.7 84 111/84 (93) 96 97.7 10/27/18 21:43 10.0 I&O Intake and Output 10/28/18 07:00 Intake Total 1240 ml Balance 1240 ml Intake Oral 1240 ml # Bowel Movements 1 General: Alert, Oriented X3, Cooperative, No acute distress Skin: Other (erythema is less) Labs Laboratory Tests Test 10/27/18 05:50 10/27/18 12:00 Creatinine 1.1 mg/dL (0.7-1.3) Estimated GFR (Cockcroft-Gault) 76.2 Vancomycin Level Trough 13.8 mcg/mL (10.0-20.0) Vancomycin Last Dose Date 10/27/18 Vancomycin Last Dose Time 0400 Assessment/Plan s/p I&D continue wound care, abx no additional surgical recs ALLISON HERNANDEZ FIGURE REFINISHER AND REPAIRER Oct 28, 2018 12:47
[2018-10-28] MEDS: oxyCODONE/APAP 10/325 1 TAB TABLET PO PRN ×2 (13:11→23:11)
[2018-10-28] MEDS: VANCOMYCIN PER PHARMACY MC PRN (13:22)
--- NOTE | 2018-10-28 14:13 | NUR ---
JOHN following pt. 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 Will continue to follow. Addendum: 10/28/18 at 1414 by FRANCY LOPEZ Pt might need wound care.
--- NOTE | 2018-10-28 14:16 | PDOC ---
PROGRESS NOTES Chief Complaint Chief Complaint s/p I and D perineal and Rectal abscess(through and through) STaph aureus wound IV drug use sepsis with no organ dysfcn Post op pain History of Present Illness History of Present Illness Other notes indicate pain uncontrolled-has gotten multiple doses of Percocet 5mgs Staph aureus on wound culture but blood culture is negative ID on board On vancomycin To follow up cultures No fever WBC 16 with hemoglobin 12 No history hep C Plan Increase Percocet to 10 Follow cultures Follow ID recommendations and continue IV vancomycin for now Vitals Vitals Vital Signs Date Time Temp Pulse Resp B/P (MAP) Pulse Ox O2 Delivery O2 Flow Rate FiO2 10/28/18 13:11 17 Room Air 10/28/18 11:00 97.7 84 111/84 (93) 96 97.7 10/27/18 21:43 10.0 Physical Exam Physical Exam CONSTITUTIONAL: He is lying in bed. He appears comfortable. He is on his right side. HEENT: Pupils are equal and reactive. Normal conjunctivae. Oral cavity, pharynx is clear. NECK: Supple. No JVD. LUNGS: Clear to auscultation. HEART: S1, S2, without gross murmur. ABDOMEN: Obese, soft. No guarding or rebound. EXTREMITIES: Without clubbing, cyanosis or gross edema. SKIN: Warm to touch. He has multiple tattoos. In his right buttock area is dressed and into the upper part of his thigh, there is improved erythema and warmth. There is no gross drainage. NEUROLOGIC: He is nonfocal and appropriate. PSYCHIATRIC: Affect is flat. General: Alert, Oriented X3, Cooperative, No acute distress Heart: Normal S1, Normal S2, Other (tachy) Lungs: Clear Abdomen: Soft, Other (tender) Extremities: No clubbing, No cyanosis, Other (some erythema does extend down thigh ) Skin: Other (erythema is less) Review of Systems Review of Systems Rectal pain otherwise rest of ROS 14 point negative Comment Review of Relevant I have reviewed the following items janina (where applicable) has been applied. Labs Laboratory Tests Test 10/27/18 05:50 10/27/18 12:00 Creatinine 1.1 mg/dL (0.7-1.3) Estimated GFR (Cockcroft-Gault) 76.2 Vancomycin Level Trough 13.8 mcg/mL (10.0-20.0) Vancomycin Last Dose Date 10/27/18 Vancomycin Last Dose Time 0400 Microbiology 10/24/18 Blood Culture - Preliminary, Resulted NO GROWTH AFTER 3 DAYS 10/25/18 Anaerobic/Aerobic Culture, Resulted Pending 10/25/18 Anaerobic Culture Result 1 ([place]), Resulted Pending 10/25/18 Aerobic Culture - Preliminary, Resulted 10/25/18 Aerobic Culture Result 1 ([place]) - Preliminary, Resulted 10/25/18 Gram Stain - Final, Resulted 10/25/18 Gram Stain Result 1 ([place]) - Final, Resulted 10/25/18 Gram Stain Result 2 ([place]) - Final, Resulted Medications Current Medications Sodium Chloride 1,000 ml @ 1,000 mls/hr 1X ONCE IV Last administered on 10/24/18at 18:40; Start 10/24/18 at 18:30; Stop 10/24/18 at 19:29; Status DC Sodium Chloride 1,000 ml @ 1,000 mls/hr 1X ONCE IV Last administered on 10/24/18at 18:44; Start 10/24/18 at 18:30; Stop 10/24/18 at 19:29; Status DC Piperacillin Sod/ Tazobactam Sod (Zosyn Per Pharmacy) 1 each PRN DAILY PRN MC SEE COMMENTS; Start 10/24/18 at 18:30; Status UNV Sodium Chloride 500 ml @ 500 mls/hr 1X ONCE IV Last administered on 10/24/18at 19:13; Start 10/24/18 at 18:30; Stop 10/24/18 at 19:29; Status DC Piperacillin Sod/ Tazobactam Sod (Zosyn Per Pharmacy) 1 each PRN DAILY PRN MC SEE COMMENTS; Start 10/24/18 at 18:30 Vancomycin HCl (Vanco Per Pharmacy) 1 each PRN DAILY PRN MC SEE COMMENTS Last administered on 10/28/18at 13:22; Start 10/24/18 at 18:30 Acetaminophen (Tylenol) 1,000 mg 1X ONCE PO Last administered on 10/24/18at 19:12; Start 10/24/18 at 18:30; Stop 10/24/18 at 18:31; Status DC Vancomycin HCl 2 gm/Sodium Chloride 500 ml @ 250 mls/hr 1X ONCE IV Last administered on 10/24/18at 19:34; Start 10/24/18 at 19:00; Stop 10/24/18 at 20:59; Status DC Piperacillin Sod/ Tazobactam Sod 3.375 gm/Sodium Chloride 50 ml @ 100 mls/hr 1X ONCE IV Last administered on 10/24/18at 18:45; Start 10/24/18 at 18:30; Stop 10/24/18 at 18:59; Status DC Morphine Sulfate (Morphine Sulfate) 6 mg 1X ONCE IV Last administered on 10/24/18at 19:12; Start 10/24/18 at 19:00; Stop 10/24/18 at 19:01; Status DC Iohexol (Omnipaque 300 Mg/ml) 75 ml 1X ONCE IV Last administered on 10/24/18at 19:37; Start 10/24/18 at 19:15; Stop 10/24/18 at 19:19; Status DC Info (CONTRAST GIVEN -- Rx MONITORING) 1 each PRN DAILY PRN MC SEE COMMENTS; Start 10/24/18 at 19:30; Stop 10/26/18 at 19:29; Status DC Ondansetron HCl (Zofran) 4 mg 1X ONCE IV Last administered on 10/24/18at 19:33; Start 10/24/18 at 19:30; Stop 10/24/18 at 19:31; Status DC Ondansetron HCl (Zofran) 4 mg PRN Q8HRS PRN IV NAUSEA/VOMITING; Start 10/24/18 at 20:15; Stop 10/24/18 at 21:43; Status DC Morphine Sulfate (Morphine Sulfate) 4 mg PRN Q2HR PRN IV PAIN Last administered on 10/25/18at 20:04; Start 10/24/18 at 20:15; Stop 10/25/18 at 20:14; Status DC Sodium Chloride 1,000 ml @ 125 mls/hr Q8H IV Last administered on 10/25/18at 04:03; Start 10/24/18 at 20:09; Stop 10/25/18 at 20:08; Status DC Piperacillin Sod/ Tazobactam Sod 3.375 gm/Sodium Chloride 50 ml @ 100 mls/hr Q6HRS IV Last administered on 10/28/18at 11:47; Start 10/25/18 at 00:00 Vancomycin HCl 1.25 gm/Sodium Chloride 250 ml @ 167 mls/hr Q12H IV Last administered on 10/26/18 07:30; Start 10/25/18 at 07:30; Stop 10/26/18 at 08:17; Status DC Vancomycin HCl (Vancomycin Trough Level) 1 each 1X ONCE MC Last administered on 10/26/18at 07:00; Start 10/26/18 at 07:00; Stop 10/26/18 at 07:01; Status DC Oxycodone/ Acetaminophen (Percocet 7.5/ 325) 1 tab PRN Q4HRS PRN PO PAIN Last administered on 10/25/18 04:19; Start 10/24/18 at 21:30; Stop 10/25/18 at 17:25; Status DC Potassium Chloride (Klor-Con) 20 meq 1X ONCE PO Last administered on 10/24/18at 23:20; Start 10/24/18 at 21:30; Stop 10/24/18 at 21:32; Status DC Ketorolac Tromethamine (Toradol 30mg Vial) 30 mg 1X ONCE IV Last administered on 10/24/18at 23:21; Start 10/24/18 at 21:30; Stop 10/24/18 at 21:32; Status DC Phenyleph/Shark Oil/Min Oil/Petrol (Preparation H) 1 jose roberto PRN QID PRN RC RECTAL PAIN; Start 10/24/18 at 21:30 Nicotine Polacrilex (Nicorette Gum) 1 each PRN Q1HR PRN BC SMOKING CESSATION Last administered on 10/25/18at 11:58; Start 10/24/18 at 21:45 Nicotine (Nicoderm Cq 21mg) 1 patch PRN DAILY PRN TD SMOKING CESSATION; Start 10/24/18 at 21:45 Docusate Sodium (Colace) 100 mg DAILY PO Last administered on 10/26/18at 09:44; Start 10/25/18 at 09:00 Polyethylene Glycol (miraLAX PACKET) 17 gm DAILY PO ; Start 10/25/18 at 09:00 Ondansetron HCl (Zofran) 4 mg PRN Q8HRS PRN IV NAUSEA/VOMITING; Start 10/24/18 at 21:45 Diphenhydramine HCl (Benadryl) 25 mg PRN QHS PRN PO INSOMNIA Last administered on 10/28/18at 01:34; Start 10/24/18 at 21:45 Lactobacillus Rhamnosus (Culturelle) 1 cap BID PO Last administered on 10/27/18at 19:38; Start 10/25/18 at 11:00 Propofol (Diprivan) 200 mg STK-MED ONCE IV ; Start 10/25/18 at 15:20; Stop 10/25/18 at 15:39; Status DC Famotidine (Pepcid Vial) 20 mg STK-MED ONCE .ROUTE ; Start 10/25/18 at 15:20; Stop 10/25/18 at 15:39; Status DC Lidocaine HCl (Lidocaine Pf 2% Vial) 5 ml STK-MED ONCE .ROUTE ; Start 10/25/18 at 15:20; Stop 10/25/18 at 15:39; Status DC Ondansetron HCl (Zofran) 4 mg STK-MED ONCE .ROUTE ; Start 10/25/18 at 15:20; Stop 10/25/18 at 15:39; Status DC Dexamethasone Sodium Phosphate (Decadron) 8 mg STK-MED ONCE .ROUTE ; Start 10/25/18 at 15:20; Stop 10/25/18 at 15:39; Status DC Succinylcholine Chloride (Anectine) 200 mg STK-MED ONCE .ROUTE ; Start 10/25/18 at 15:20; Stop 10/25/18 at 15:39; Status DC Fentanyl Citrate (Fentanyl 2ml Vial) 100 mcg STK-MED ONCE .ROUTE ; Start 10/25/18 at 15:20; Stop 10/25/18 at 15:39; Status DC Midazolam HCl (Versed) 2 mg STK-MED ONCE .ROUTE ; Start 10/25/18 at 15:20; Stop 10/25/18 at 15:39; Status DC Oxycodone/ Acetaminophen (Percocet 5/325) 1 tab PRN Q4HRS PRN PO MILD PAIN 1-3; Start 10/25/18 at 17:15; Stop 10/28/18 at 13:03; Status DC Oxycodone/ Acetaminophen (Percocet 5/325) 2 tab PRN Q4HRS PRN PO MODERATE PAIN, SEVERE PAIN Last administered on 10/28/18at 09:00; Start 10/25/18 at 17:30; Stop 10/28/18 at 13:03; Status DC Fentanyl Citrate (Fentanyl 2ml Vial) 25 mcg PRN Q5MIN PRN IV MILD PAIN 1-3; Start 10/25/18 at 17:45; Stop 10/25/18 at 19:58; Status DC Fentanyl Citrate (Fentanyl 2ml Vial) 50 mcg PRN Q5MIN PRN IV MODERATE TO SEVERE PAIN Last administered on 10/25/18at 17:45; Start 10/25/18 at 17:45; Stop 10/25/18 at 19:58; Status DC Morphine Sulfate (Morphine Sulfate) 2 mg PRN Q10MIN PRN IV MILD PAIN 1-3 Last administered on 10/25/18at 18:17; Start 10/25/18 at 17:45; Stop 10/25/18 at 19:58; Status DC Hydromorphone HCl (Dilaudid) 0.5 mg PRN Q10MIN PRN IV Moderate to severe pain Last administered on 10/25/18at 18:28; Start 10/25/18 at 17:45; Stop 10/25/18 at 19:58; Status DC Ondansetron HCl (Zofran) 4 mg PRN Q6HRS PRN IV Nausea, 1st Choice; Start 10/25/18 at 17:45; Stop 10/26/18 at 17:44; Status DC Prochlorperazine Edisylate (Compazine) 5 mg PRN Q10MIN PRN IV Nausea/Vomiting, 1st Choice Last administered on 10/25/18at 18:00; Start 10/25/18 at 17:45; Stop 10/26/18 at 17:44; Status DC Rocuronium Avery (Zemuron) 50 mg STK-MED ONCE .ROUTE ; Start 10/25/18 at 17:00; Stop 10/25/18 at 17:59; Status DC Esmolol HCl (Brevibloc) 100 mg STK-MED ONCE IVP ; Start 10/25/18 at 17:00; Stop 10/25/18 at 17:59; Status DC Morphine Sulfate (Morphine Sulfate) 10 mg STK-MED ONCE .ROUTE ; Start 10/25/18 at 17:00; Stop 10/25/18 at 17:59; Status DC Propofol 20 ml @ As Directed STK-MED ONCE IV ; Start 10/25/18 at 15:17; Stop 10/25/18 at 18:04; Status DC Famotidine (Pepcid Vial) 20 mg STK-MED ONCE .ROUTE ; Start 10/25/18 at 15:17; S top 10/25/18 at 18:04; Status DC Lidocaine HCl (Lidocaine Pf 2% Vial) 5 ml STK-MED ONCE .ROUTE ; Start 10/25/18 at 15:17; Stop 10/25/18 at 18:04; Status DC Ondansetron HCl (Zofran) 4 mg STK-MED ONCE .ROUTE ; Start 10/25/18 at 15:17; Stop 10/25/18 at 18:04; Status DC Dexamethasone Sodium Phosphate (Decadron) 4 mg STK-MED ONCE .ROUTE ; Start 10/25/18 at 15:17; Stop 10/25/18 at 18:04; Status DC Succinylcholine Chloride (Anectine) 200 mg STK-MED ONCE .ROUTE ; Start 10/25/18 at 15:17; Stop 10/25/18 at 18:04; Status DC Fentanyl Citrate (Fentanyl 2ml Vial) 100 mcg STK-MED ONCE .ROUTE ; Start 10/25/18 at 15:17; Stop 10/25/18 at 18:04; Status DC Midazolam HCl (Versed) 2 mg STK-MED ONCE .ROUTE ; Start 10/25/18 at 15:17; Stop 10/25/18 at 18:04; Status DC Bupivacaine HCl/ Epinephrine Bitart (Sensorcain-Mpf Epi 0.5%-1:885929) 30 ml STK-MED ONCE .ROUTE ; Start 10/25/18 at 14:35; Stop 10/25/18 at 18:04; Status DC Rocuronium Avery (Zemuron) 50 mg STK-MED ONCE .ROUTE ; Start 10/25/18 at 16:30; Stop 10/25/18 at 18:05; Status DC Esmolol HCl (Brevibloc) 100 mg STK-MED ONCE IVP ; Start 10/25/18 at 16:38; Stop 10/25/18 at 18:05; Status DC Morphine Sulfate (Morphine Sulfate) 10 mg STK-MED ONCE .ROUTE ; Start 10/25/18 at 17:00; Stop 10/25/18 at 18:05; Status DC Fentanyl Citrate (Fentanyl 2ml Vial) 100 mcg STK-MED ONCE .ROUTE ; Start 10/25/18 at 17:33; Stop 10/25/18 at 18:05; Status DC Morphine Sulfate (Morphine Sulfate) 2 mg STK-MED ONCE .ROUTE ; Start 10/25/18 at 17:56; Stop 10/25/18 at 18:06; Status DC Vancomycin HCl 1.25 gm/Sodium Chloride 250 ml @ 167 mls/hr Q8H IV ; Start 10/26/18 at 09:00; Stop 10/26/18 at 13:16; Status DC Vancomycin HCl (Vancomycin Trough Level) 1 each 1X ONCE MC Last administered on 10/27/18at 12:00; Start 10/27/18 at 11:30; Stop 10/27/18 at 11:31; Status DC Vancomycin HCl 1.25 gm/Sodium Chloride 250 ml @ 167 mls/hr Q8H IV Last administered on 10/28/18at 04:00; Start 10/26/18 at 20:00 Morphine Sulfate (Morphine Sulfate) 6 mg PRN Q4HRS PRN IV PAIN Last administered on 10/28/18at 11:49; Start 10/26/18 at 15:45 Morphine Sulfate (Morphine Sulfate) 2 mg STK-MED ONCE .ROUTE ; Start 10/26/18 at 15:46; Stop 10/26/18 at 15:47; Status DC Oxycodone/ Acetaminophen (Percocet 10/325) 1 tab PRN Q4HRS PRN PO pain Last administered on 10/28/18at 13:11; Start 10/28/18 at 13:15 Celecoxib (CeleBREX) 100 mg BID PO ; Start 10/28/18 at 21:00 Active Scripts Active Vitals/I & O Vital Sign - Last 24 Hours 10/27/18 10/27/18 10/27/18 10/27/18 15:14 17:20 19:38 19:40 Temp 97.3 97.6 97.3 97.6 Pulse 71 70 Resp 18 16 18 B/P (MAP) 130/72 (91) 131/84 (100) Pulse Ox 98 98 100 O2 Delivery Room Air Room Air Room Air Room Air O2 Flow Rate 10.0 10/27/18 10/27/18 10/27/18 10/27/18 20:00 20:00 21:43 23:29 Temp 98.0 98.0 Pulse 57 Resp 20 B/P (MAP) 118/76 (90) Pulse Ox 100 99 O2 Delivery Room Air Room Air Room Air O2 Flow Rate 10.0 10.0 10/27/18 10/28/18 10/28/18 10/28/18 23:48 00:18 01:34 02:34 Resp 18 Pulse Ox 99 99 99 98 O2 Delivery Room Air Room Air Room Air 10/28/18 10/28/18 10/28/18 10/28/18 03:00 05:55 07:10 09:00 Temp 97.7 97.6 97.7 97.6 Pulse 70 75 Resp 17 18 18 B/P (MAP) 124/76 (92) 111/80 (90) Pulse Ox 98 98 O2 Delivery Room Air Room Air Room Air Room Air 10/28/18 10/28/18 10/28/18 10/28/18 10:00 11:00 11:49 13:11 Temp 97.7 97.7 Pulse 84 Resp 18 18 18 17 B/P (MAP) 111/84 (93) Pulse Ox 96 O2 Delivery Room Air Room Air Room Air Room Air Intake and Output 10/27/18 10/27/18 10/28/18 15:00 23:00 07:00 Intake Total 240 ml 400 ml 600 ml Balance 240 ml 400 ml 600 ml CHANEL VALADEZ MD Oct 28, 2018 14:16
[2018-10-28 15:10] VITALS: BP 121/85
--- NOTE | 2018-10-28 15:49 | NUR ---
Report called to M[facility] on [facility]. Pt transferred to room 502 per bed.
[2018-10-28] MEDS: NICOTINE POLACRILEX 2MG GUM PACKAGE of 12. BC PRN (18:41)
[2018-10-28 19:00] VITALS: BP 131/68
[2018-10-28] MEDS: CELECOXIB 100 MG CAPSULE. PO SCH (21:28)
[2018-10-28 23:03] VITALS: BP 141/72
[2018-10-29] MEDS: PIPERACILLIN/TAZOBACTAM 3.375 GM in IV NORMAL SALINE 50ML 50 ML IV SCH ×4 (00:59→18:42)
[2018-10-29] MEDS: MORPHINE SULFATE 10 MG/ML VIAL. IV PRN ×5 (01:02→20:34)
[2018-10-29] MEDS: VANCOMYCIN 1.25 GM in IV NORMAL SALINE 250ML 250 ML IV SCH ×3 (04:37→20:00)
[2018-10-29 04:42] VITALS: BP 134/81
[2018-10-29 06:49] LABS: BASO # 0.1 x10^3/uL (0.0-0.2); BASO % 1 % (0-3); EOS # 0.2 x10^3/uL (0.0-0.7); EOS % 2 % (0-3); HEMATOCRIT 38.4 % (39.0-53.0); HEMOGLOBIN 13.2 g/dL (13.0-17.5); LYMPH # 2.6 x10^3/uL (1.0-4.8); LYMPH % 25 % (24-48); MEAN CORPUSCULAR HEMOGLOBIN 32 pg (25-35); MEAN CORPUSCULAR HGB CONC 34 g/dL (31-37); MEAN CORPUSCULAR VOLUME 92 fL (79-100); MONO # 0.8 x10^3/uL (0.0-1.1); MONO % 7 % (0-9); NEUT # 6.9 x10^3uL (1.8-7.7); NEUT % 66 % (31-73); PLATELET COUNT 256 x10^3/uL (140-400); RED BLOOD COUNT 4.16 x10^6/uL (4.30-5.70); RED CELL DISTRIBUTION WIDTH 13.2 % (11.5-14.5); WHITE BLOOD COUNT 10.5 x10^3/uL (4.0-11.0)
[2018-10-29 07:00] VITALS: BP 121/70
[2018-10-29] MEDS: POLYETHYLENE GLYCOL 3350 17 GM PACKET. PO SCH (09:59)
[2018-10-29] MEDS: DOCUSATE SODIUM 100 MG CAPSULE. PO SCH (09:59)
[2018-10-29] MEDS: CELECOXIB 100 MG CAPSULE. PO SCH ×2 (10:00→20:33)
[2018-10-29] MEDS: LACTOBACILLUS RHAMNOSUS GG 1 CAPSULE. PO SCH ×2 (10:00→20:33)
[2018-10-29] MEDS: oxyCODONE/APAP 10/325 1 TAB TABLET PO PRN ×2 (10:10→19:20)
[2018-10-29] MEDS: NICOTINE POLACRILEX 2MG GUM PACKAGE of 12. BC PRN ×2 (10:14→16:29)
[2018-10-29] MEDS: VANCOMYCIN PER PHARMACY MC PRN (10:51)
[2018-10-29 10:52] VITALS: BP 139/85
--- NOTE | 2018-10-29 11:11 | PDOC ---
PROGRESS NOTES Chief Complaint Chief Complaint s/p I and D perineal and Rectal abscess(through and through) STaph aureus wound IV drug use sepsis with no organ dysfcn Post op pain History of Present Illness History of Present Illness Pain better with perc 10 STaph aureus in wound cs, BLood CS no growth so far Updated and I have provided copies of the results Plan COnt percocet 10 Await other pending micro non wound cx COnt IV vanc per ID Vitals Vitals Vital Signs Date Time Temp Pulse Resp B/P (MAP) Pulse Ox O2 Delivery O2 Flow Rate FiO2 10/29/18 10:52 97.5 60 20 139/85 (103) 98 Room Air 10.0 97.5 Physical Exam Physical Exam CONSTITUTIONAL: He is lying in bed. He appears comfortable. He is on his right side. HEENT: Pupils are equal and reactive. Normal conjunctivae. Oral cavity, pharynx is clear. NECK: Supple. No JVD. LUNGS: Clear to auscultation. HEART: S1, S2, without gross murmur. ABDOMEN: Obese, soft. No guarding or rebound. EXTREMITIES: Without clubbing, cyanosis or gross edema. SKIN: Warm to touch. He has multiple tattoos. In his right buttock area is dressed and into the upper part of his thigh, there is improved erythema and warmth. There is no gross drainage. NEUROLOGIC: He is nonfocal and appropriate. PSYCHIATRIC: Affect is flat. General: Alert, Oriented X3, Cooperative, No acute distress Heart: Normal S1, Normal S2, Other (tachy) Lungs: Clear Abdomen: Soft, Other (tender) Extremities: No clubbing, No cyanosis, Other (some erythema does extend down thigh ) Skin: Other (erythema is less) Labs LABS Laboratory Tests Test 10/29/18 06:20 White Blood Count 10.5 x10^3/uL (4.0-11.0) Red Blood Count 4.16 x10^6/uL (4.30-5.70) Hemoglobin 13.2 g/dL (13.0-17.5) Hematocrit 38.4 % (39.0-53.0) Mean Corpuscular Volume 92 fL (79-100) Mean Corpuscular Hemoglobin 32 pg (25-35) Mean Corpuscular Hemoglobin Concent 34 g/dL (31-37) Red Cell Distribution Width 13.2 % (11.5-14.5) Platelet Count 256 x10^3/uL (140-400) Neutrophils (%) (Auto) 66 % (31-73) Lymphocytes (%) (Auto) 25 % (24-48) Monocytes (%) (Auto) 7 % (0-9) Eosinophils (%) (Auto) 2 % (0-3) Basophils (%) (Auto) 1 % (0-3) Neutrophils # (Auto) 6.9 x10^3uL (1.8-7.7) Lymphocytes # (Auto) 2.6 x10^3/uL (1.0-4.8) Monocytes # (Auto) 0.8 x10^3/uL (0.0-1.1) Eosinophils # (Auto) 0.2 x10^3/uL (0.0-0.7) Basophils # (Auto) 0.1 x10^3/uL (0.0-0.2) Erythrocyte Sedimentation Rate 60 (0-15) Review of Systems Review of Systems rectal soreness no inc in pain, otherwise rest of 14 pt neg Comment Review of Relevant I have reviewed the following items janina (where applicable) has been applied. Labs Laboratory Tests Test 10/27/18 12:00 10/29/18 06:20 Vancomycin Level Trough 13.8 mcg/mL (10.0-20.0) Vancomycin Last Dose Date 10/27/18 Vancomycin Last Dose Time 0400 White Blood Count 10.5 x10^3/uL (4.0-11.0) Red Blood Count 4.16 x10^6/uL (4.30-5.70) Hemoglobin 13.2 g/dL (13.0-17.5) Hematocrit 38.4 % (39.0-53.0) Mean Corpuscular Volume 92 fL (79-100) Mean Corpuscular Hemoglobin 32 pg (25-35) Mean Corpuscular Hemoglobin Concent 34 g/dL (31-37) Red Cell Distribution Width 13.2 % (11.5-14.5) Platelet Count 256 x10^3/uL (140-400) Neutrophils (%) (Auto) 66 % (31-73) Lymphocytes (%) (Auto) 25 % (24-48) Monocytes (%) (Auto) 7 % (0-9) Eosinophils (%) (Auto) 2 % (0-3) Basophils (%) (Auto) 1 % (0-3) Neutrophils # (Auto) 6.9 x10^3uL (1.8-7.7) Lymphocytes # (Auto) 2.6 x10^3/uL (1.0-4.8) Monocytes # (Auto) 0.8 x10^3/uL (0.0-1.1) Eosinophils # (Auto) 0.2 x10^3/uL (0.0-0.7) Basophils # (Auto) 0.1 x10^3/uL (0.0-0.2) Erythrocyte Sedimentation Rate 60 (0-15) Laboratory Tests Test 10/29/18 06:20 White Blood Count 10.5 x10^3/uL (4.0-11.0) Red Blood Count 4.16 x10^6/uL (4.30-5.70) Hemoglobin 13.2 g/dL (13.0-17.5) Hematocrit 38.4 % (39.0-53.0) Mean Corpuscular Volume 92 fL (79-100) Mean Corpuscular Hemoglobin 32 pg (25-35) Mean Corpuscular Hemoglobin Concent 34 g/dL (31-37) Red Cell Distribution Width 13.2 % (11.5-14.5) Platelet Count 256 x10^3/uL (140-400) Neutrophils (%) (Auto) 66 % (31-73) Lymphocytes (%) (Auto) 25 % (24-48) Monocytes (%) (Auto) 7 % (0-9) Eosinophils (%) (Auto) 2 % (0-3) Basophils (%) (Auto) 1 % (0-3) Neutrophils # (Auto) 6.9 x10^3uL (1.8-7.7) Lymphocytes # (Auto) 2.6 x10^3/uL (1.0-4.8) Monocytes # (Auto) 0.8 x10^3/uL (0.0-1.1) Eosinophils # (Auto) 0.2 x10^3/uL (0.0-0.7) Basophils # (Auto) 0.1 x10^3/uL (0.0-0.2) Erythrocyte Sedimentation Rate 60 (0-15) Microbiology 10/24/18 Blood Culture - Preliminary, Resulted NO GROWTH AFTER 4 DAYS 10/25/18 Anaerobic/Aerobic Culture, Resulted Pending 10/25/18 Anaerobic Culture Result 1 ([place]), Resulted Pending 10/25/18 Aerobic Culture - Preliminary, Resulted 10/25/18 Aerobic Culture Result 1 ([place]) - Preliminary, Resulted 10/25/18 Gram Stain - Final, Resulted 10/25/18 Gram Stain Result 1 ([place]) - Final, Resulted 10/25/18 Gram Stain Result 2 ([place]) - Final, Resulted Medications Current Medications Sodium Chloride 1,000 ml @ 1,000 mls/hr 1X ONCE IV Last administered on 10/24/18 18:40; Start 10/24/18 at 18:30; Stop 10/24/18 at 19:29; Status DC Sodium Chloride 1,000 ml @ 1,000 mls/hr 1X ONCE IV Last administered on 10/24/18at 18:44; Start 10/24/18 at 18:30; Stop 10/24/18 at 19:29; Status DC Piperacillin Sod/ Tazobactam Sod (Zosyn Per Pharmacy) 1 each PRN DAILY PRN MC SEE COMMENTS; Start 10/24/18 at 18:30; Status UNV Sodium Chloride 500 ml @ 500 mls/hr 1X ONCE IV Last administered on 10/24/18at 19:13; Start 10/24/18 at 18:30; Stop 10/24/18 at 19:29; Status DC Piperacillin Sod/ Tazobactam Sod (Zosyn Per Pharmacy) 1 each PRN DAILY PRN MC SEE COMMENTS; Start 10/24/18 at 18:30 Vancomycin HCl (Vanco Per Pharmacy) 1 each PRN DAILY PRN MC SEE COMMENTS Last administered on 10/29/18at 10:51; Start 10/24/18 at 18:30 Acetaminophen (Tylenol) 1,000 mg 1X ONCE PO Last administered on 10/24/18at 19:12; Start 10/24/18 at 18:30; Stop 10/24/18 at 18:31; Status DC Vancomycin HCl 2 gm/Sodium Chloride 500 ml @ 250 mls/hr 1X ONCE IV Last administered on 10/24/18at 19:34; Start 10/24/18 at 19:00; Stop 10/24/18 at 20:59; Status DC Piperacillin Sod/ Tazobactam Sod 3.375 gm/Sodium Chloride 50 ml @ 100 mls/hr 1X ONCE IV Last administered on 10/24/18at 18:45; Start 10/24/18 at 18:30; Stop 10/24/18 at 18:59; Status DC Morphine Sulfate (Morphine Sulfate) 6 mg 1X ONCE IV Last administered on 10/24/18 19:12; Start 10/24/18 at 19:00; Stop 10/24/18 at 19:01; Status DC Iohexol (Omnipaque 300 Mg/ml) 75 ml 1X ONCE IV Last administered on 10/24/18 19:37; Start 10/24/18 at 19:15; Stop 10/24/18 at 19:19; Status DC Info (CONTRAST GIVEN -- Rx MONITORING) 1 each PRN DAILY PRN MC SEE COMMENTS; Start 10/24/18 at 19:30; Stop 10/26/18 at 19:29; Status DC Ondansetron HCl (Zofran) 4 mg 1X ONCE IV Last administered on 10/24/18at 19:33; Start 10/24/18 at 19:30; Stop 10/24/18 at 19:31; Status DC Ondansetron HCl (Zofran) 4 mg PRN Q8HRS PRN IV NAUSEA/VOMITING; Start 10/24/18 at 20:15; Stop 10/24/18 at 21:43; Status DC Morphine Sulfate (Morphine Sulfate) 4 mg PRN Q2HR PRN IV PAIN Last administered on 10/25/18at 20:04; Start 10/24/18 at 20:15; Stop 10/25/18 at 20:14; Status DC Sodium Chloride 1,000 ml @ 125 mls/hr Q8H IV Last administered on 10/25/18at 04:03; Start 10/24/18 at 20:09; Stop 10/25/18 at 20:08; Status DC Piperacillin Sod/ Tazobactam Sod 3.375 gm/Sodium Chloride 50 ml @ 100 mls/hr Q6HRS IV Last administered on 10/29/18 06:33; Start 10/25/18 at 00:00 Vancomycin HCl 1.25 gm/Sodium Chloride 250 ml @ 167 mls/hr Q12H IV Last administered on 10/26/18at 07:30; Start 10/25/18 at 07:30; Stop 10/26/18 at 08:17; Status DC Vancomycin HCl (Vancomycin Trough Level) 1 each 1X ONCE MC Last administered on 10/26/18at 07:00; Start 10/26/18 at 07:00; Stop 10/26/18 at 07:01; Status DC Oxycodone/ Acetaminophen (Percocet 7.5/ 325) 1 tab PRN Q4HRS PRN PO PAIN Last administered on 10/25/18 04:19; Start 10/24/18 at 21:30; Stop 10/25/18 at 17:25; Status DC Potassium Chloride (Klor-Con) 20 meq 1X ONCE PO Last administered on 10/24/18 23:20; Start 10/24/18 at 21:30; Stop 10/24/18 at 21:32; Status DC Ketorolac Tromethamine (Toradol 30mg Vial) 30 mg 1X ONCE IV Last administered on 10/24/18 23:21; Start 10/24/18 at 21:30; Stop 10/24/18 at 21:32; Status DC Phenyleph/Shark Oil/Min Oil/Petrol (Preparation H) 1 jose roberto PRN QID PRN RC RECTAL PAIN; Start 10/24/18 at 21:30 Nicotine Polacrilex (Nicorette Gum) 1 each PRN Q1HR PRN BC SMOKING CESSATION Last administered on 10/29/18 10:14; Start 10/24/18 at 21:45 Nicotine (Nicoderm Cq 21mg) 1 patch PRN DAILY PRN TD SMOKING CESSATION; Start 10/24/18 at 21:45 Docusate Sodium (Colace) 100 mg DAILY PO Last administered on 10/29/18 09:59; Start 10/25/18 at 09:00 Polyethylene Glycol (miraLAX PACKET) 17 gm DAILY PO Last administered on 10/29/18 09:59; Start 10/25/18 at 09:00 Ondansetron HCl (Zofran) 4 mg PRN Q8HRS PRN IV NAUSEA/VOMITING; Start 10/24/18 at 21:45 Diphenhydramine HCl (Benadryl) 25 mg PRN QHS PRN PO INSOMNIA Last administered on 10/28/18 23:11; Start 10/24/18 at 21:45 Lactobacillus Rhamnosus (Culturelle) 1 cap BID PO Last administered on 10/29/18at 10:00; Start 10/25/18 at 11:00 Propofol (Diprivan) 200 mg STK-MED ONCE IV ; Start 10/25/18 at 15:20; Stop 10/25/18 at 15:39; Status DC Famotidine (Pepcid Vial) 20 mg STK-MED ONCE .ROUTE ; Start 10/25/18 at 15:20; Stop 10/25/18 at 15:39; Status DC Lidocaine HCl (Lidocaine Pf 2% Vial) 5 ml STK-MED ONCE .ROUTE ; Start 10/25/18 at 15:20; Stop 10/25/18 at 15:39; Status DC Ondansetron HCl (Zofran) 4 mg STK-MED ONCE .ROUTE ; Start 10/25/18 at 15:20; Stop 10/25/18 at 15:39; Status DC Dexamethasone Sodium Phosphate (Decadron) 8 mg STK-MED ONCE .ROUTE ; Start 10/25/18 at 15:20; Stop 10/25/18 at 15:39; Status DC Succinylcholine Chloride (Anectine) 200 mg STK-MED ONCE .ROUTE ; Start 10/25/18 at 15:20; Stop 10/25/18 at 15:39; Status DC Fentanyl Citrate (Fentanyl 2ml Vial) 100 mcg STK-MED ONCE .ROUTE ; Start 10/25/18 at 15:20; Stop 10/25/18 at 15:39; Status DC Midazolam HCl (Versed) 2 mg STK-MED ONCE .ROUTE ; Start 10/25/18 at 15:20; Stop 10/25/18 at 15:39; Status DC Oxycodone/ Acetaminophen (Percocet 5/325) 1 tab PRN Q4HRS PRN PO MILD PAIN 1-3; Start 10/25/18 at 17:15; Stop 10/28/18 at 13:03; Status DC Oxycodone/ Acetaminophen (Percocet 5/325) 2 tab PRN Q4HRS PRN PO MODERATE PAIN, SEVERE PAIN Last administered on 10/28/18at 09:00; Start 10/25/18 at 17:30; Stop 10/28/18 at 13:03; Status DC Fentanyl Citrate (Fentanyl 2ml Vial) 25 mcg PRN Q5MIN PRN IV MILD PAIN 1-3; Start 10/25/18 at 17:45; Stop 10/25/18 at 19:58; Status DC Fentanyl Citrate (Fentanyl 2ml Vial) 50 mcg PRN Q5MIN PRN IV MODERATE TO SEVERE PAIN Last administered on 10/25/18at 17:45; Start 10/25/18 at 17:45; Stop 10/25/18 at 19:58; Status DC Morphine Sulfate (Morphine Sulfate) 2 mg PRN Q10MIN PRN IV MILD PAIN 1-3 Last administered on 10/25/18at 18:17; Start 10/25/18 at 17:45; Stop 10/25/18 at 19:58; Status DC Hydromorphone HCl (Dilaudid) 0.5 mg PRN Q10MIN PRN IV Moderate to severe pain Last administered on 10/25/18at 18:28; Start 10/25/18 at 17:45; Stop 10/25/18 at 19:58; Status DC Ondansetron HCl (Zofran) 4 mg PRN Q6HRS PRN IV Nausea, 1st Choice; Start 10/25/18 at 17:45; Stop 10/26/18 at 17:44; Status DC Prochlorperazine Edisylate (Compazine) 5 mg PRN Q10MIN PRN IV Nausea/Vomiting, 1st Choice Last administered on 10/25/18at 18:00; Start 10/25/18 at 17:45; Stop 10/26/18 at 17:44; Status DC Rocuronium Clute (Zemuron) 50 mg STK-MED ONCE .ROUTE ; Start 10/25/18 at 17:00; Stop 10/25/18 at 17:59; Status DC Esmolol HCl (Brevibloc) 100 mg STK-MED ONCE IVP ; Start 10/25/18 at 17:00; Stop 10/25/18 at 17:59; Status DC Morphine Sulfate (Morphine Sulfate) 10 mg STK-MED ONCE .ROUTE ; Start 10/25/18 at 17:00; Stop 10/25/18 at 17:59; Status DC Propofol 20 ml @ As Directed STK-MED ONCE IV ; Start 10/25/18 at 15:17; Stop 10/25/18 at 18:04; Status DC Famotidine (Pepcid Vial) 20 mg STK-MED ONCE .ROUTE ; Start 10/25/18 at 15:17; Stop 10/25/18 at 18:04; Status DC Lidocaine HCl (Lidocaine Pf 2% Vial) 5 ml STK-MED ONCE .ROUTE ; Start 10/25/18 at 15:17; Stop 10/25/18 at 18:04; Status DC Ondansetron HCl (Zofran) 4 mg STK-MED ONCE .ROUTE ; Start 10/25/18 at 15:17; Stop 10/25/18 at 18:04; Status DC Dexamethasone Sodium Phosphate (Decadron) 4 mg STK-MED ONCE .ROUTE ; Start 10/25/18 at 15:17; Stop 10/25/18 at 18:04; Status DC Succinylcholine Chloride (Anectine) 200 mg STK-MED ONCE .ROUTE ; Start 10/25/18 at 15:17; Stop 10/25/18 at 18:04; Status DC Fentanyl Citrate (Fentanyl 2ml Vial) 100 mcg STK-MED ONCE .ROUTE ; Start 10/25/18 at 15:17; Stop 10/25/18 at 18:04; Status DC Midazolam HCl (Versed) 2 mg STK-MED ONCE .ROUTE ; Start 10/25/18 at 15:17; Stop 10/25/18 at 18:04; Status DC Bupivacaine HCl/ Epinephrine Bitart (Sensorcain-Mpf Epi 0.5%-1:036804) 30 ml STK-MED ONCE .ROUTE ; Start 10/25/18 at 14:35; Stop 10/25/18 at 18:04; Status DC Rocuronium Clute (Zemuron) 50 mg STK-MED ONCE .ROUTE ; Start 10/25/18 at 16:30; Stop 10/25/18 at 18:05; Status DC Esmolol HCl (Brevibloc) 100 mg STK-MED ONCE IVP ; Start 10/25/18 at 16:38; Stop 10/25/18 at 18:05; Status DC Morphine Sulfate (Morphine Sulfate) 10 mg STK-MED ONCE .ROUTE ; Start 10/25/18 at 17:00; Stop 10/25/18 at 18:05; Status DC Fentanyl Citrate (Fentanyl 2ml Vial) 100 mcg STK-MED ONCE .ROUTE ; Start 10/25/18 at 17:33; Stop 10/25/18 at 18:05; Status DC Morphine Sulfate (Morphine Sulfate) 2 mg STK-MED ONCE .ROUTE ; Start 10/25/18 at 17:56; Stop 10/25/18 at 18:06; Status DC Vancomycin HCl 1.25 gm/Sodium Chloride 250 ml @ 167 mls/hr Q8H IV ; Start 10/26/18 at 09:00; Stop 10/26/18 at 13:16; Status DC Vancomycin HCl (Vancomycin Trough Level) 1 each 1X ONCE MC Last administered on 10/27/18at 12:00; Start 10/27/18 at 11:30; Stop 10/27/18 at 11:31; Status DC Vancomycin HCl 1.25 gm/Sodium Chloride 250 ml @ 167 mls/hr Q8H IV Last administered on 10/29/18at 04:37; Start 10/26/18 at 20:00 Morphine Sulfate (Morphine Sulfate) 6 mg PRN Q4HRS PRN IV PAIN Last administered on 10/29/18at 06:39; Start 10/26/18 at 15:45 Morphine Sulfate (Morphine Sulfate) 2 mg STK-MED ONCE .ROUTE ; Start 10/26/18 at 15:46; Stop 10/26/18 at 15:47; Status DC Oxycodone/ Acetaminophen (Percocet 10/325) 1 tab PRN Q4HRS PRN PO pain Last administered on 10/29/18at 10:10; Start 10/28/18 at 13:15 Celecoxib (CeleBREX) 100 mg BID PO Last administered on 10/29/18at 10:00; Start 10/28/18 at 21:00 Active Scripts Active Vitals/I & O Vital Sign - Last 24 Hours 10/28/18 10/28/18 10/28/18 10/28/18 11:49 13:11 15:10 16:00 Temp 97.5 97.5 Pulse 70 Resp 18 17 18 B/P (MAP) 121/85 (97) Pulse Ox 98 O2 Delivery Room Air Room Air Room Air Room Air 10/28/18 10/28/18 10/28/18 10/28/18 16:11 19:00 19:58 20:28 Temp 97.7 97.7 Pulse 82 Resp 20 18 20 B/P (MAP) 131/68 (89) Pulse Ox 98 O2 Delivery Room Air Room Air Room Air 10/28/18 10/28/18 10/29/18 10/29/18 23:03 23:11 00:11 01:02 Temp 98.0 98.0 Pulse 72 Resp 20 20 20 20 B/P (MAP) 141/72 (95) Pulse Ox 97 O2 Delivery Room Air Room Air Room Air Room Air 10/29/18 10/29/18 10/29/18 10/29/18 04:42 06:39 07:00 07:09 Temp 98.0 97.6 98.0 97.6 Pulse 72 72 Resp 20 20 20 B/P (MAP) 134/81 (98) 121/70 (87) Pulse Ox 98 94 O2 Delivery Room Air Room Air Room Air Room Air 10/29/18 10/29/18 10/29/18 08:00 10:10 10:52 Temp 97.5 97.5 Pulse 60 Resp 20 B/P (MAP) 139/85 (103) Pulse Ox 98 O2 Delivery Room Air Room Air Room Air O2 Flow Rate 10.0 Intake and Output 10/28/18 10/28/18 10/29/18 15:00 23:00 07:00 Intake Total 600 ml 450 ml 480 ml Output Total 475 ml 1200 ml Balance 125 ml 450 ml -720 ml CHANEL VALADEZ MD Oct 29, 2018 11:11
--- NOTE | 2018-10-29 13:47 | PDOC ---
Infectious Disease Note Subjective Subjective Dressing recently changed Tired, pain controlled at the moment Denies N/V/F/C + BM ROS ROS per HPI Vital Sign Vital Signs Vital Signs Date Time Temp Pulse Resp B/P (MAP) Pulse Ox O2 Delivery O2 Flow Rate FiO2 10/29/18 12:06 Room Air 10/29/18 10:52 97.5 60 20 139/85 (103) 98 10.0 97.5 Physical Exam PHYSICAL EXAM CONSTITUTIONAL: Resting quietly, arouses to name HEENT: Oral cavity, pharynx is clear. NECK: Supple. No JVD. LUNGS: Clear to auscultation. HEART: S1, S2, without gross murmur. ABDOMEN: Soft and nontender EXTREMITIES: Without clubbing, cyanosis or gross edema. SKIN: Warm to touch. Multiple tattoos. Kimberly-rectal dressing dry NEUROLOGIC: Responds appropriately RUE-PICC without signs of any complications Labs Lab Laboratory Tests Test 10/29/18 06:20 White Blood Count 10.5 x10^3/uL (4.0-11.0) Red Blood Count 4.16 x10^6/uL (4.30-5.70) Hemoglobin 13.2 g/dL (13.0-17.5) Hematocrit 38.4 % (39.0-53.0) Mean Corpuscular Volume 92 fL (79-100) Mean Corpuscular Hemoglobin 32 pg (25-35) Mean Corpuscular Hemoglobin Concent 34 g/dL (31-37) Red Cell Distribution Width 13.2 % (11.5-14.5) Platelet Count 256 x10^3/uL (140-400) Neutrophils (%) (Auto) 66 % (31-73) Lymphocytes (%) (Auto) 25 % (24-48) Monocytes (%) (Auto) 7 % (0-9) Eosinophils (%) (Auto) 2 % (0-3) Basophils (%) (Auto) 1 % (0-3) Neutrophils # (Auto) 6.9 x10^3uL (1.8-7.7) Lymphocytes # (Auto) 2.6 x10^3/uL (1.0-4.8) Monocytes # (Auto) 0.8 x10^3/uL (0.0-1.1) Eosinophils # (Auto) 0.2 x10^3/uL (0.0-0.7) Basophils # (Auto) 0.1 x10^3/uL (0.0-0.2) Erythrocyte Sedimentation Rate 60 (0-15) Micro Kimberly-rectal AEROBIC RES 1 Preliminary Staphylococcus aureus BLOOD CULTURE Preliminary NO GROWTH AFTER 4 DAYS Objective Assessment Fever - better Leukocytosis -better but now s/p Dexamethasone 10/25 Right perirectal abscess s/p I and D, deep into muscle tissue 10/25 Staph aureus so far H/o MRSA - + Nasal screen Hep C + Substance abuse - UDS + for amphet/Meth Plan Plan of Care Cont Vanc and Zosyn Trough 13.8 on 10/27. f/u am labs F/u cultures Wound care per surg Attending Co-Sign The patient was seen and interviewed as well as examined at the bedside. The chart was reviewed. The case was discussed. Agree with the plan of care. CONNOR PENALOZA APRN Oct 29, 2018 13:47 ANICETO RIVAS MD Oct 29, 2018 14:24
[2018-10-29 15:00] VITALS: BP 133/82
[2018-10-29 19:59] VITALS: BP 131/80
[2018-10-29 23:59] VITALS: BP 149/96
[2018-10-30] MEDS: PIPERACILLIN/TAZOBACTAM 3.375 GM in IV NORMAL SALINE 50ML 50 ML IV SCH ×3 (00:04→11:54)
[2018-10-30] MEDS: oxyCODONE/APAP 10/325 1 TAB TABLET PO PRN ×4 (00:08→12:30)
[2018-10-30] MEDS: MORPHINE SULFATE 10 MG/ML VIAL. IV PRN ×4 (00:51→13:01)
[2018-10-30 03:59] VITALS: BP 154/89
[2018-10-30] MEDS: VANCOMYCIN 1.25 GM in IV NORMAL SALINE 250ML 250 ML IV SCH ×2 (04:00→12:30)
[2018-10-30 06:41] LABS: CREATININE 1.2 mg/dL (0.7-1.3); GFR 68.9
[2018-10-30 07:00] VITALS: BP 122/78
[2018-10-30] MEDS: LACTOBACILLUS RHAMNOSUS GG 1 CAPSULE. PO SCH (08:13)
[2018-10-30] MEDS: CELECOXIB 100 MG CAPSULE. PO SCH (08:13)
[2018-10-30] MEDS: DOCUSATE SODIUM 100 MG CAPSULE. PO SCH (08:14)
[2018-10-30] MEDS: POLYETHYLENE GLYCOL 3350 17 GM PACKET. PO SCH (08:14)
[2018-10-30] MEDS ORDERED: CELE100C PO (10:14)
[2018-10-30] MEDS ORDERED: LACT1CAP19 PO (10:14)
[2018-10-30] MEDS ORDERED: OXYC1TAB22 PO (10:14)
[2018-10-30] MEDS ORDERED: Nicotine 21MG TD (10:14)
--- NOTE | 2018-10-30 10:17 | PDOC3 ---
Discharge Summary Visit Information Date of Admission: Oct 24, 2018 Date of Discharge: Oct 30, 2018 Admitting Diagnosis Comment: s/p I and D perineal and Rectal abscess(through and through) MRSA STaph aureus wound IV drug use sepsis with no organ dysfcn Post op pain Brief Hospital Course Allergies Allergies Coded Allergies Type Severity Reaction Last Updated Verified I S O L A T I O N *CONTACT* Allergy Unknown 10/26/18 Yes No Known Medication Allergies Allergy Unknown 10/26/18 Yes Vital Signs Vital Signs Date Time Temp Pulse Resp B/P (MAP) Pulse Ox O2 Delivery O2 Flow Rate FiO2 10/30/18 09:33 Room Air 10/30/18 07:00 98.4 85 18 122/78 (93) 96 98.4 10/29/18 20:00 10.0 Lab Results Laboratory Tests Test 10/29/18 06:20 10/30/18 05:02 White Blood Count 10.5 x10^3/uL (4.0-11.0) Red Blood Count 4.16 x10^6/uL (4.30-5.70) Hemoglobin 13.2 g/dL (13.0-17.5) Hematocrit 38.4 % (39.0-53.0) Mean Corpuscular Volume 92 fL (79-100) Mean Corpuscular Hemoglobin 32 pg (25-35) Mean Corpuscular Hemoglobin Concent 34 g/dL (31-37) Red Cell Distribution Width 13.2 % (11.5-14.5) Platelet Count 256 x10^3/uL (140-400) Neutrophils (%) (Auto) 66 % (31-73) Lymphocytes (%) (Auto) 25 % (24-48) Monocytes (%) (Auto) 7 % (0-9) Eosinophils (%) (Auto) 2 % (0-3) Basophils (%) (Auto) 1 % (0-3) Neutrophils # (Auto) 6.9 x10^3uL (1.8-7.7) Lymphocytes # (Auto) 2.6 x10^3/uL (1.0-4.8) Monocytes # (Auto) 0.8 x10^3/uL (0.0-1.1) Eosinophils # (Auto) 0.2 x10^3/uL (0.0-0.7) Basophils # (Auto) 0.1 x10^3/uL (0.0-0.2) Erythrocyte Sedimentation Rate 60 (0-15) Creatinine 1.2 mg/dL (0.7-1.3) Estimated GFR (Cockcroft-Gault) 68.9 Laboratory Tests Test 10/30/18 05:02 Creatinine 1.2 mg/dL (0.7-1.3) Estimated GFR (Cockcroft-Gault) 68.9 Brief Hospital Course Mr. Sharp is a 33 old white male with multiple tattoos and narcotic tolerant, comes in because of perirectal abscess through and through, needed I and D. Blood cultures are negative but wound grew MRSA sensitive to Zyvox and Bactrim. He has a right PICC, he is self-pay. He cannot afford Zyvox. We are waiting for ID rounds. Most likely Bactrim. Most likely will be able to DC PICC. He is needing Percocet 10 and other high doses of narcotic, all Rx on chart Consults performed ID, GS Procedures performed perirectal abscess drainage liang Andersen Time 30 Discharge Information Condition at Discharge: Improved, Stable Disposition/Orders: D/C to Home Scheduled Celecoxib (Celebrex) 100 Mg Capsule, 100 MG PO BID for pain MDD 1, #30 Prescribed by: CHANEL VALADEZ on 10/30/18 1014 Lactobacillus Rhamnosus Gg (Culturelle) 1 Each Cap.sprink, 1 CAP PO BID for probiotic, or just eat yogurt MDD 1, #14 Prescribed by: CHANEL VALADEZ on 10/30/18 1014 Scheduled PRN Oxycodone/Apap 10-325 (Percocet 10-325 Mg Tablet ) 1 Each Tablet, 1 TAB PO PRN Q4HRS PRN for pain MDD 1, #30 Prescribed by: CHANEL VALADEZ on 10/30/18 1014 [Nicotine 21MG] 1 PATCH PATCH, 1 PATCH TD PRN DAILY PRN for SMOKING CESSATION MDD 1, #7 Prescribed by: CHANEL VALADEZ on 10/30/18 1014 CHANEL VALADEZ MD Oct 30, 2018 10:17
--- NOTE | 2018-10-30 10:42 | PDOC ---
Infectious Disease Note Subjective Subjective Dressing changed earlier, pics reviewed with RN Ongoing pain, worse with dressing changes and BM Denies N/V/F/C ROS ROS per HPI Vital Sign Vital Signs Vital Signs Date Time Temp Pulse Resp B/P (MAP) Pulse Ox O2 Delivery O2 Flow Rate FiO2 10/30/18 09:33 Room Air 10/30/18 07:00 98.4 85 18 122/78 (93) 96 98.4 10/29/18 20:00 10.0 Physical Exam PHYSICAL EXAM GENERAL: Lying down, left side, alert, conversant HEENT: Oral cavity, pharynx is clear. NECK: Supple. LUNGS: Clear to auscultation. HEART: S1, S2, without gross murmur. ABDOMEN: Soft and nontender EXTREMITIES: Without clubbing, cyanosis or gross edema. SKIN: Warm to touch. Multiple tattoos. coccyx and perirectal/right gluteal wounds packed, no area redness (pic reviewed) NEUROLOGIC: Responds appropriately RUE-PICC without signs of any complications Labs Lab Laboratory Tests Test 10/30/18 05:02 Creatinine 1.2 mg/dL (0.7-1.3) Estimated GFR (Cockcroft-Gault) 68.9 Micro Kimberly-rectal ANAEROBIC RES 1 PENDING AEROBIC RES 1 Final Methicillin - resistant Staphylococcus aureus Antibiotic RSLT#1 Ciprofloxacin R>=8 Clindamycin R>=8 Erythromycin R>=8 Gentamicin S<=0.5 Levofloxacin I =4 Linezolid S =2 Oxacillin R>=4 Penicillin R>=0.5 Rifampin S<=0.5 Tetracycline S<=1 Trimethoprim/Sulfa S<=10 BLOOD CULTURE Preliminary NO GROWTH AFTER 5 DAYS Objective Assessment Fever - better Leukocytosis -better but now s/p Dexamethasone 10/25, resolved Right perirectal abscess s/p I and D, deep into muscle tissue 10/25 MRSA (tetra-S) so far H/o MRSA - + Nasal screen Hep C + Substance abuse - UDS + for amphet/Meth Plan Plan of Care Cont Vanc and Zosyn - switch to po soon Trough 13.8 on 10/27. F/u cultures Wound care per surg Attending Co-Sign The patient was seen and interviewed as well as examined at the bedside. The chart was reviewed. The case was discussed. Agree with the plan of care. CONNOR PENALOZA APRN Oct 30, 2018 10:42 ANICETO RIVAS MD Oct 30, 2018 14:39
[2018-10-30 10:45] VITALS: BP 151/85
[2018-10-30] MEDS: VANCOMYCIN PER PHARMACY MC PRN (11:17)
--- NOTE | 2018-10-30 11:44 | PDOC ---
SURGICAL PROGRESS NOTE Subjective pain with dressings better reports mom is to do dressings at home, seen how yesterday Vital Signs Vital Signs Date Time Temp Pulse Resp B/P (MAP) Pulse Ox O2 Delivery O2 Flow Rate FiO2 10/30/18 10:45 97.9 68 18 151/85 (107) 99 Room Air 97.9 10/29/18 20:00 10.0 I&O Intake and Output 10/30/18 07:00 Intake Total 1100 ml Output Total 700 ml Balance 400 ml Intake Oral 1000 ml IV Total 100 ml Output Urine Total 700 ml # Voids 1 General: Alert, Cooperative Skin: Other (reviewed wound pics from today, no erythema surrounding) Labs Laboratory Tests Test 10/29/18 06:20 10/30/18 05:02 White Blood Count 10.5 x10^3/uL (4.0-11.0) Red Blood Count 4.16 x10^6/uL (4.30-5.70) Hemoglobin 13.2 g/dL (13.0-17.5) Hematocrit 38.4 % (39.0-53.0) Mean Corpuscular Volume 92 fL (79-100) Mean Corpuscular Hemoglobin 32 pg (25-35) Mean Corpuscular Hemoglobin Concent 34 g/dL (31-37) Red Cell Distribution Width 13.2 % (11.5-14.5) Platelet Count 256 x10^3/uL (140-400) Neutrophils (%) (Auto) 66 % (31-73) Lymphocytes (%) (Auto) 25 % (24-48) Monocytes (%) (Auto) 7 % (0-9) Eosinophils (%) (Auto) 2 % (0-3) Basophils (%) (Auto) 1 % (0-3) Neutrophils # (Auto) 6.9 x10^3uL (1.8-7.7) Lymphocytes # (Auto) 2.6 x10^3/uL (1.0-4.8) Monocytes # (Auto) 0.8 x10^3/uL (0.0-1.1) Eosinophils # (Auto) 0.2 x10^3/uL (0.0-0.7) Basophils # (Auto) 0.1 x10^3/uL (0.0-0.2) Erythrocyte Sedimentation Rate 60 (0-15) Creatinine 1.2 mg/dL (0.7-1.3) Estimated GFR (Cockcroft-Gault) 68.9 Laboratory Tests Test 10/30/18 05:02 Creatinine 1.2 mg/dL (0.7-1.3) Estimated GFR (Cockcroft-Gault) 68.9 Assessment/Plan s/p I&D wound care, abx FU 1 week with ALLISON Carter APRN Oct 30, 2018 11:44
[2018-10-30 14:55] VITALS: BP 149/82
--- NOTE | 2018-10-30 15:26 | NUR ---
Discharge Note: BISHOP CASPER Discharge instructions and discharge home medications reviewed with Patient and a copy given. All questions have been answered and understanding verbalized. The following instructions and handouts were given: discharge instructions, new prescriptions, education and follow up recommendations. Discontinued lines and drains: PICC Line discontinued intact. Patient discharged to Home or Self Care with Parent via Wheelchair off unit by KILN TESTER.
== END 2018-10-30 15:28 | disposition home or self-care (01) | DRG 853 ==
LOC: ER 18:00 → 6 SOUTH 20:38 → 5 NORTH 10-28 15:50
PROVIDERS: ADMIT Internal Medicine; ATTEND Internal Medicine
PROC: 0K9N0ZZ Drainage of Right Hip Muscle, Open Approach (ICD-10-PCS; 2018-10-25)
PROC: 02HV33Z Insertion of Infusion Device into Superior Vena Cava, Percutaneous Approach (ICD-10-PCS; principal; 2018-10-26)
PROC: B548ZZA Ultrasonography of Superior Vena Cava, Guidance (ICD-10-PCS; 2018-10-26)
DX: A41.9 Sepsis, unspecified organism (principal); E43 Unspecified severe protein-calorie malnutrition; K61.1 Rectal abscess; L02.31 Cutaneous abscess of buttock; L03.317 Cellulitis of buttock; B95.62 Methicillin resistant Staphylococcus aureus infection as the cause of diseases classified elsewhere; D64.9 Anemia, unspecified; K52.9 Noninfective gastroenteritis and colitis, unspecified; F15.10 Other stimulant abuse, uncomplicated; F32.9 Major depressive disorder, single episode, unspecified; F41.9 Anxiety disorder, unspecified; B19.20 Unspecified viral hepatitis C without hepatic coma; F12.10 Cannabis abuse, uncomplicated; F17.210 Nicotine dependence, cigarettes, uncomplicated; Z68.30 Body mass index [BMI] 30.0-30.9, adult; Z86.14 Personal history of Methicillin resistant Staphylococcus aureus infection; Z90.49 Acquired absence of other specified parts of digestive tract; Z79.899 Other long term (current) drug therapy
CPT/HCPCS: 36415; 36569; 74177; 80048; 80053; 80202; 80307; 81001; 82565; 83605; 85007; 85025; 85651; 86705; 86709; 86803; 87040; 87071; 87075; 87340; 87521; 87641; 93306; 96361; 96365; 96367; 96375; A7015; J0330; J0780; J1100; J1170; J1885; J2001; J2250; J2270; J2405; J2543; J2704; J3010; J3370; J3490; J7030; J7040; J7050; J7120; Q0163; Q9967; 99285-25; A4461

== ENCOUNTER 2019-12-27 16:23 | Emergency (ER) | payer SELFPAY ==
[~2019-12-27] VITALS: Ht 172.7 cm; Wt 100.0 kg
[~2019-12-27 16:23] MED LIST changes: +AMOX500T PO; +CELE100C PO; +LACT1CAP19 PO; +Nicotine 21MG TD; +OXYC1TAB22 PO
[2019-12-27 17:22] LABS: BASO % 1 % (0-3); EOS # 0.2 x10^3/uL (0.0-0.7); EOS % 3 % (0-3); HEMATOCRIT 45.3 % (39.0-53.0); HEMOGLOBIN 15.7 g/dL (13.0-17.5); LYMPH # 1.8 x10^3/uL (1.0-4.8); LYMPH % 21 % (24-48); MEAN CORPUSCULAR HEMOGLOBIN 32 pg (25-35); MEAN CORPUSCULAR HGB CONC 35 g/dL (31-37); MEAN CORPUSCULAR VOLUME 93 fL (79-100); MONO # 0.7 x10^3/uL (0.0-1.1); MONO % 8 % (0-9); NEUT # 5.8 x10^3/uL (1.8-7.7); NEUT % 68 % (31-73); PLATELET COUNT 178 x10^3/uL (140-400); RED BLOOD COUNT 4.86 x10^6/uL (4.30-5.70); RED CELL DISTRIBUTION WIDTH 13.4 % (11.5-14.5); WHITE BLOOD COUNT 8.5 x10^3/uL (4.0-11.0)
[2019-12-27] MEDS: HYDROcodone/APAP 5/325MG 1 TAB TABLET PO ONE (17:24)
--- NOTE | 2019-12-27 17:28 | PHYS DOC ---
Past Medical History Past Medical History: Hepatitis, Other Additional Past Medical Histor: MRSA, staph infection of hand and right calf in past. (BULL CROWLEY DO) Past Surgical History: Cholecystectomy, Tonsillectomy, Other Additional Past Surgical Histo: MRSA from Right calf debridement, HERNIA REPAIR (BULL CROWLEY DO) Smoking Status: Current Every Day Smoker Alcohol Use: Rarely Drug Use: Marijuana (BULL CROWLEY DO) General Adult EDM: Chief Complaint: LOWER EXT PAIN HPI: HPI: The history was obtained from the patient. Patient is a 34-year-old male with PMH remote IV drug use, MRSA skin infections who presents with a chief complaint of left lower extremity pain and swelling. Patient states over the past 2 days he has noticed increased swelling to the left lower extremity. He states he notices a quarter size red lesion just below his left knee. He denies any known trauma or breaks in the skin. He states he has not used IV drugs in over 12 years. He does note a history of being prone to cellulitis. He does note a history of MRSA. He states he has not been on any antibiotics recently. He denies any fevers. He states he is able to ambulate although it is painful. He denies drainage from the wound. States that he is able to bend his ankle and knee without difficulty. No other complaints. (BULL CROWLEY DO) Review of Systems: Review of Systems: Constitutional: Denies fever or chills. [] Eyes: Denies change in visual acuity. [] HENT: Denies nasal congestion or sore throat. [] Respiratory: Denies cough or shortness of breath. [] Cardiovascular: Positive for edema GI: Denies abdominal pain, nausea, vomiting, bloody stools or diarrhea. [] : Denies dysuria. [] Musculoskeletal: Denies back pain or joint pain. [] Integument: Positive for erythema Neurologic: Denies headache, focal weakness or sensory changes. [] Endocrine: Denies polyuria or polydipsia. [] Lymphatic: Denies swollen glands. [] Psychiatric: Denies depression or anxiety. [] (BULL CROWLEY DO) Heart Score: Risk Factors: Risk Factors: DM, Current or recent (<one month) smoker, HTN, HLP, family history of CAD, obesity. Risk Scores: Score 0 - 3: 2.5% MACE over next 6 weeks - Discharge Home Score 4 - 6: 20.3% MACE over next 6 weeks - Admit for Clinical Observation Score 7 - 10: 72.7% MACE over next 6 weeks - Early Invasive Strategies (BULL CROWLEY DO) Current Medications: Current Medications Medications (Trade) Dose Ordered Sig/John Start Time Stop Time Status Last Admin Dose Admin Acetaminophen/ Hydrocodone Bitart (Lortab 5/325) 1 tab 1X ONCE 12/27/19 17:00 12/27/19 17:01 DC Cefazolin Sodium (Ancef) 1 gm 1X ONCE 12/27/19 17:00 12/27/19 17:01 DC Trimethoprim/ Sulfamethoxazole 20 ml/Dextrose 500 ml @ 333.333 mls/hr Q8H 12/27/19 18:00 (BULL CROWLEY DO) Allergies: Allergies: Allergies Coded Allergies Type Severity Reaction Last Updated Verified I S O L A T I O N *CONTACT* Allergy Unknown 10/26/18 Yes No Known Medication Allergies Allergy Unknown 10/26/18 Yes (BULL CROWLEY DO) Physical Exam: PE: Constitutional: Well developed, well nourished, no acute distress, non-toxic appearance. [] HENT: Normocephalic, atraumatic, bilateral external ears normal, oropharynx moist, no oral exudates, nose normal. [] Eyes: PERRLA, EOMI, conjunctiva normal, no discharge. [] Neck: Normal range of motion, no tenderness, supple, no stridor. [] Cardiovascular:Heart rate regular rhythm, no murmur [] Lungs & Thorax: Bilateral breath sounds clear to auscultation [] Abdomen: soft, no tenderness, no masses, no pulsatile masses. [] Skin: Warm, dry, no erythema, no rash. [] Back: No tenderness, no CVA tenderness. [] Extremities: Slight asymmetric swelling of the left lower extremity compared to the right. Indurated skin palpated over the left lower leg. 2 x 2 centimeter area of erythema noted inferior to the left knee joint approximate level just below the left tibial plateau. No associated crepitus palpated. No palpable areas of fluctuance noted. +2-4 DP pulses bilaterally. Full range of motion of the left hip, knee, and ankle without difficulty. No effusion palpated of the left knee. Compartments are soft. Neurologic: Alert and oriented X 3, normal motor function, normal sensory function, no focal deficits noted. [] Psychologic: Affect normal, judgement normal, mood normal. [] (BULL CROWLEY DO) Current Patient Data: Labs: Laboratory Tests Test 12/27/19 17:13 White Blood Count 8.5 x10^3/uL (4.0-11.0) Red Blood Count 4.86 x10^6/uL (4.30-5.70) Hemoglobin 15.7 g/dL (13.0-17.5) Hematocrit 45.3 % (39.0-53.0) Mean Corpuscular Volume 93 fL (79-100) Mean Corpuscular Hemoglobin 32 pg (25-35) Mean Corpuscular Hemoglobin Concent 35 g/dL (31-37) Red Cell Distribution Width 13.4 % (11.5-14.5) Platelet Count 178 x10^3/uL (140-400) Neutrophils (%) (Auto) 68 % (31-73) Lymphocytes (%) (Auto) 21 % (24-48) L Monocytes (%) (Auto) 8 % (0-9) Eosinophils (%) (Auto) 3 % (0-3) Basophils (%) (Auto) 1 % (0-3) Neutrophils # (Auto) 5.8 x10^3/uL (1.8-7.7) Lymphocytes # (Auto) 1.8 x10^3/uL (1.0-4.8) Monocytes # (Auto) 0.7 x10^3/uL (0.0-1.1) Eosinophils # (Auto) 0.2 x10^3/uL (0.0-0.7) Basophils # (Auto) 0.0 x10^3/uL (0.0-0.2) Laboratory Tests 12/27/19 17:13 Vital Signs: Vital Signs Date Time Temp Pulse Resp B/P (MAP) Pulse Ox O2 Delivery O2 Flow Rate FiO2 12/27/19 16:45 98.3 101 12 165/83 (110) 99 Room Air 98.3 (BULL CROWLEY DO) EKG: EKG: [] (BULL CROWLEY DO) Radiology/Procedures: Radiology/Procedures: [] (BULL CROWLEY DO) Radiology/Procedures: CT scan of the lower extremity did not show any evidence for fasciitis or necrotizing infection. (EVIE QUESADA MD) Course & Med Decision Making: Course & Med Decision Making Pertinent Labs and Imaging studies reviewed. (See chart for details) Patient is a 34-year-old male who presents with a complaint of pain and swelling to the left lower extremity. Initial vital signs unremarkable. Exam noted above. Given his history of IV drug use CT imaging of the left lower extremity will be obtained to rule out deep space infection including but not limited to necrotizing fasciitis. Low suspicion for septic arthritis as the wound is inferior to the knee joint he has full range of motion without difficulty of all left lower extremity joints. Patient will be given IV antibiotics while awaiting CAT scan imaging. If CT imaging returns normal I do anticipate discharge home with oral antibiotics and close wound follow-up. Patient is agreeable to this plan. At this time imaging is pending. At this time signout has been given to Dr. Quesada. We did discuss results of labs, imaging, and plan of care for patient. Please see their note for further updates and disposition. (BULL CROWLEY DO) Course & Med Decision Making 1924-the patient was seen and evaluated at shift change. CT scan did not show any necrotizing fasciitis or any concern for anything other than regular cellulitis. Will discharge patient with some p.o. antibiotics. I discussed treatment plan, reasons to return and need for follow-up. (EVIE QUESADA MD) Dragon Disclaimer: Dragon Disclaimer: This electronic medical record was generated, in whole or in part, using a voice recognition dictation system. (BULL CROWLEY DO) Departure Departure Impression: Primary Impression: Cellulitis Qualified Codes: L03.116 - Cellulitis of left lower limb Additional Impression: Leg pain, anterior Disposition: HOME, SELF-CARE Condition: IMPROVED Referrals: NO PCP (PCP) Patient Instructions: Cellulitis Additional Instructions: Follow-up with primary care provider as noted on the discharge instructions Scripts Tramadol Hcl (TRAMADOL HCL) 50 Mg Tablet 50 MG PO Q6HRS PRN for PAIN, #14 TAB Prov: EVIE QUESADA MD 12/27/19 Cephalexin (KEFLEX) 500 Mg Capsule 500 MG PO QID for 7 Days, #28 CAP Prov: EVIE QUESADA MD 12/27/19 Sulfamethoxazole/Trimethoprim (BACTRIM DS TABLET) 1 Each Tablet 1 TAB PO BID for 7 Days, #14 TAB 0 Refills Prov: EVIE QUESADA MD 12/27/19 Justicifation of Admission Dx: Justifications for Admission: Justification of Admission Dx: N/A (BULL CROWLEY DO) BULL CROWLEY DO Dec 27, 2019 17:28 EVIE QUESADA MD Dec 27, 2019 19:27
[2019-12-27 17:32] LABS: CALCIUM 9.1 mg/dL (8.5-10.1); CREATININE 1.1 mg/dL (0.7-1.3); GFR 75.7; POTASSIUM 4.1 mmol/L (3.5-5.1)
[2019-12-27] MEDS ORDERED: CONTRAST GIVEN. MC PRN (17:45)
[2019-12-27] MEDS: IOHEXOL 300 MG/ML 100ML VIAL. IV ONE (17:45)
[2019-12-27] MEDS: ceFAZolin SODIUM IV Push 1 GM VIAL. IVP ONE (17:45)
[2019-12-27] MEDS: TRIMETH IV SCH (17:46)
[2019-12-27] MEDS: DEXTROSE IV SCH (17:46)
[2019-12-27] MEDS: SULFAMETH IV SCH (17:46)
--- NOTE | 2019-12-27 19:05 | RAD ---
Exam: CT left lower extremity with contrast INDICATION: Evaluate for deep space infection, wound over left tibial plateau TECHNIQUE: Sequential axial images through the left knee obtained following the administration of 75 mL of Omni 300 IV contrast. Sagittal and coronal reformatted images were reconstructed from the axial data and reviewed. Comparisons: None FINDINGS: Soft tissue swelling and inflammatory changes in the subcutaneous tissues overlying the lateral aspect of the knee and proximal tibia.. Underlying musculature is unremarkable. No focal fluid collection. Bone mineralization is normal. No acute or fracture. IMPRESSION: Findings likely related to cellulitis overlying the lateral aspect correlate without underlying fluid collection. Underlying musculature and bone mineralization is unremarkable. Exposure: One or more of the following in the visualized dose reduction techniques were utilized for this examination: 1. Automated exposure control 2. Adjustment of the MA and/or KV according to patient size 3. Use of iterative of reconstructive technique Electronically signed by: Marco Murillo MD (12/27/2019 7:02 PM) [id number]
[2019-12-27 19:14] VITALS: BP 127/76
[2019-12-27] MEDS ORDERED: TRAM50TA PO (19:32)
[2019-12-27] MEDS ORDERED: SULF1TAB24 PO (19:32)
[2019-12-27] MEDS ORDERED: CEPH-264 PO (19:32)
== END 2019-12-27 19:50 | disposition home or self-care (01) ==
LOC: ER 16:23
DX: L03.116 Cellulitis of left lower limb (principal); M79.605 Pain in left leg; R60.0 Localized edema; L53.9 Erythematous condition, unspecified; K73.9 Chronic hepatitis, unspecified; F17.200 Nicotine dependence, unspecified, uncomplicated; F12.90 Cannabis use, unspecified, uncomplicated; Z90.49 Acquired absence of other specified parts of digestive tract; Z90.89 Acquired absence of other organs; Z98.890 Other specified postprocedural states; Z86.14 Personal history of Methicillin resistant Staphylococcus aureus infection; Z88.8 Allergy status to other drugs, medicaments and biological substances
CPT/HCPCS: 36415; 73701; 80048; 85025; 96365; 96375; 99285; J0690; J3490; J7060; Q9967

== ENCOUNTER 2020-05-30 22:08 | Observation (INO) | payer OTHER ==
[~2020-05-30] VITALS: Ht 172.7 cm; Wt 100.0 kg
[~2020-05-30 22:08] MED LIST changes: +CEPH-264 PO; -CLIN300C8 PO; +CLIN300C9 PO; +SULF1TAB24 PO; +TRAM50TA PO
[2020-05-30] MEDS ORDERED: IV NORMAL SALINE 1000ML BAG 1,000 ML IV ONE (22:30)
[2020-05-30] MEDS ORDERED: ONDANSETRON PF 4 MG/2 ML VIAL. IV ONE (22:30)
[2020-05-30] MEDS ORDERED: MORPHINE SULFATE 4 MG/ML VIAL. IV ONE (22:30)
--- NOTE | 2020-05-30 23:12 | ED.ADGEN ---
Past Medical History Past Medical History: Hepatitis, Other Additional Past Medical Histor: MRSA (HAND & R CALF), HEP C, opiate addiction Past Surgical History: Cholecystectomy, Tonsillectomy, Other Additional Past Surgical Histo: MRSA from Right calf debridement, HERNIA REPAIR Smoking Status: Current Every Day Smoker Additional Information: 1 PK/DAY Alcohol Use: Rarely Drug Use: Marijuana Social History Narrative: PT TAKING SABOXONE General Adult EDM: Chief Complaint: ABDOMINAL PAIN HPI: HPI: Patient is a 35 year old male, accompanied by his mother, who presents emergency department with complaints of severe right lower quadrant abdominal pain for the last hour. Patient reports he tried taking a laxative after the onset of the pain but denies any relief or increase in the pain after taking the laxative. Patient reported he had been constipated for the last 6 days. He denies any fever, cough, sore throat, body aches, fatigue, rash, nausea, vomiting, diarrhea, shortness of breath, chest pain, or headache. Patient denies having any blood in his urine or his stools. He currently rates his pain a 10 out of 10 on the pain scale, he denies any alleviating or exacerbating factors. Review of Systems: Review of Systems: Complete ROS is negative unless otherwise noted in HPI. Current Medications: Current Medications Medications (Trade) Dose Ordered Sig/John Start Time Stop Time Status Last Admin Dose Admin Info (CONTRAST GIVEN -- Rx MONITORING) 1 each PRN DAILY PRN 05/30/20 23:55 06/01/20 23:54 Iohexol (Omnipaque 300 Mg/ml) 75 ml 1X ONCE 05/30/20 23:55 05/30/20 23:56 DC 05/30/20 23:51 75 ML Morphine Sulfate (Morphine Sulfate) 4 mg 1X ONCE 05/30/20 22:30 05/30/20 22:31 DC 05/30/20 23:20 4 MG Ondansetron HCl (Zofran) 4 mg 1X ONCE 05/30/20 22:30 05/30/20 22:31 DC 05/30/20 23:19 4 MG Sodium Chloride 1,000 ml @ 1,000 mls/hr 1X ONCE 05/30/20 22:30 05/30/20 23:29 DC 05/30/20 23:19 1,000 MLS/HR Allergies: Allergies: Allergies Coded Allergies Type Severity Reaction Last Updated Verified I S O L A T I O N *CONTACT* Allergy Unknown 10/26/18 Yes No Known Medication Allergies Allergy Unknown 10/26/18 Yes Physical Exam: PE: See Above Constitutional: Well developed, well nourished, moderate distress, grunting and grimacing HENT: Normocephalic, atraumatic, bilateral external ears normal, nose normal. [] Eyes: PERRLA, EOMI, conjunctiva normal, no discharge. [] Neck: Normal range of motion, no stridor. [] Cardiovascular:Heart rate regular rhythm Lungs & Thorax: Respirations even and unlabored, no retractions, no respiratory distress Abdomen: Right lower quadrant tenderness to palpation, no rebound tenderness, no guarding, positive McBurney's point tenderness, negative Rovsing's/psoas/obturator signs, no palpable masses Skin: Warm, dry, no erythema, no rash. [] Extremities: No cyanosis, ROM intact, no edema. [] Neurologic: Alert and oriented X 3, no focal deficits noted. [] Psychologic: Affect normal, judgement normal, mood normal. [] Current Patient Data: Labs: Laboratory Tests Test 05/30/20 23:08 White Blood Count 11.7 x10^3/uL (4.0-11.0) H Red Blood Count 5.02 x10^6/uL (4.30-5.70) Hemoglobin 16.0 g/dL (13.0-17.5) Hematocrit 45.8 % (39.0-53.0) Mean Corpuscular Volume 91 fL (79-100) Mean Corpuscular Hemoglobin 32 pg (25-35) Mean Corpuscular Hemoglobin Concent 35 g/dL (31-37) Red Cell Distribution Width 13.4 % (11.5-14.5) Platelet Count 171 x10^3/uL (140-400) Neutrophils (%) (Auto) 85 % (31-73) H Lymphocytes (%) (Auto) 10 % (24-48) L Monocytes (%) (Auto) 5 % (0-9) Eosinophils (%) (Auto) 0 % (0-3) Basophils (%) (Auto) 0 % (0-3) Neutrophils # (Auto) 9.9 x10^3/uL (1.8-7.7) H Lymphocytes # (Auto) 1.2 x10^3/uL (1.0-4.8) Monocytes # (Auto) 0.5 x10^3/uL (0.0-1.1) Eosinophils # (Auto) 0.0 x10^3/uL (0.0-0.7) Basophils # (Auto) 0.0 x10^3/uL (0.0-0.2) Sodium Level 139 mmol/L (136-145) Potassium Level 4.0 mmol/L (3.5-5.1) Chloride Level 101 mmol/L (98-107) Carbon Dioxide Level 32 mmol/L (21-32) Anion Gap 6 (6-14) Blood Urea Nitrogen 10 mg/dL (8-26) Creatinine 0.9 mg/dL (0.7-1.3) Estimated GFR (Cockcroft-Gault) 95.0 BUN/Creatinine Ratio 11 (6-20) Glucose Level 82 mg/dL (70-99) Calcium Level 9.0 mg/dL (8.5-10.1) Magnesium Level 1.9 mg/dL (1.8-2.4) Total Bilirubin 0.9 mg/dL (0.2-1.0) Aspartate Amino Transferase (AST) 51 U/L (15-37) H Alanine Aminotransferase (ALT) 90 U/L (16-63) H Alkaline Phosphatase 119 U/L (46-116) H Total Protein 7.4 g/dL (6.4-8.2) Albumin 4.0 g/dL (3.4-5.0) Albumin/Globulin Ratio 1.2 (1.0-1.7) Lipase 35 U/L (73-393) L Laboratory Tests 05/30/20 23:08 Laboratory Tests 05/30/20 23:08 Vital Signs: Vital Signs Date Time Temp Pulse Resp B/P (MAP) Pulse Ox O2 Delivery O2 Flow Rate FiO2 05/30/20 23:20 18 96 05/30/20 22:15 97.2 99 147/95 (112) Room Air 97.2 EKG: EKG: [] Heart Score: Risk Factors: Risk Factors: DM, Current or recent (<one month) smoker, HTN, HLP, family history of CAD, obesity. Risk Scores: Score 0 - 3: 2.5% MACE over next 6 weeks - Discharge Home Score 4 - 6: 20.3% MACE over next 6 weeks - Admit for Clinical Observation Score 7 - 10: 72.7% MACE over next 6 weeks - Early Invasive Strategies Radiology/Procedures: Radiology/Procedures: CT SCAN OF THE ABDOMEN AND PELVIS WITH IV CONTRAST. History: Reason: RLQ abd pain / Spl. Instructions: / History: Comparison:October 24, 2018. Procedure: Contiguous axial images of the abdomen and pelvis were performed after the administration of 75 cc of Isovue 370 IV contrast. Oral contrast: No. Findings: The appendix is posterior the cecum at the level of the iliac and has moderate wall thickening and measures 1.8 cm in diameter and has surrounding inflammation and fluid. The prostate is not significantly enlarged. There has been prior cholecystectomy. Liver: Unremarkable Spleen: Unremarkable Pancreas: Unremarkable Adrenal Glands: Unremarkable Kidneys: Unremarkable There is no mass or lymphadenopathy. There is no free air. There is no free fluid. The urinary bladder appears normal. Impression: Study positive for acute appendicitis. There is no free air or abscess.[] Course & Med Decision Making: Course & Med Decision Making Pertinent Labs and Imaging studies reviewed. (See chart for details) 2350- Results pending for CT and UA. Report given to Dr. López at this time. [] Nikita Disclaimer: Nikita Disclaimer: This electronic medical record was generated, in whole or in part, using a voice recognition dictation system. Departure Departure Impression: Primary Impression: Appendicitis, acute Disposition: ADMITTED INPT THIS HOSP Admitting Physician: HIMChandra Condition: STABLE Referrals: NO PCP (PCP) FROILAN ARMAN APRN May 30, 2020 23:12 LOVE LÓPEZ MD May 31, 2020 00:11
[2020-05-30 23:19] LABS: BASO % 0 % (0-3); EOS % 0 % (0-3); HEMATOCRIT 45.8 % (39.0-53.0); LYMPH # 1.2 x10^3/uL (1.0-4.8); LYMPH % 10 % (24-48); MEAN CORPUSCULAR HEMOGLOBIN 32 pg (25-35); MEAN CORPUSCULAR HGB CONC 35 g/dL (31-37); MEAN CORPUSCULAR VOLUME 91 fL (79-100); MONO # 0.5 x10^3/uL (0.0-1.1); MONO % 5 % (0-9); NEUT # 9.9 x10^3/uL (1.8-7.7); NEUT % 85 % (31-73); PLATELET COUNT 171 x10^3/uL (140-400); RED BLOOD COUNT 5.02 x10^6/uL (4.30-5.70); RED CELL DISTRIBUTION WIDTH 13.4 % (11.5-14.5); WHITE BLOOD COUNT 11.7 x10^3/uL (4.0-11.0)
[2020-05-30 23:37] LABS: CREATININE 0.9 mg/dL (0.7-1.3)
[2020-05-30 23:42] LABS: ALBUMIN/GLOBULIN RATIO 1.2 (1.0-1.7); MAGNESIUM 1.9 mg/dL (1.8-2.4); TOTAL BILIRUBIN 0.9 mg/dL (0.2-1.0); TOTAL PROTEIN 7.4 g/dL (6.4-8.2)
[2020-05-30] MEDS ORDERED: IOHEXOL 300 MG/ML 100ML VIAL. IV ONE (23:55)
[2020-05-30] MEDS ORDERED: CONTRAST GIVEN. MC PRN (23:55)
[2020-05-31] VITALS (14 sets, daily range): BP systolic 103–124; BP diastolic 49–73
--- NOTE | 2020-05-31 00:01 | RAD ---
CT SCAN OF THE ABDOMEN AND PELVIS WITH IV CONTRAST. History: Reason: RLQ abd pain / Spl. Instructions: / History: Comparison:October 24, 2018. Procedure: Contiguous axial images of the abdomen and pelvis were performed after the administration of 75 cc o f Isovue 370 IV contrast. Oral contrast: No. Findings: The appendix is posterior the cecum at the level of the iliac and has moderate wall thickening and me asures 1.8 cm in diameter and has surrounding inflammation and fluid. The prostate is not significantly enlarged. There has been prior cholecystectomy. Liver: Unremarkable Spleen: Unremarkable Pancreas: Unremarkable Adrenal Glands: Unremarkable Kidneys: Unremarkable There is no mass or lymphadenopathy. There is no free air. There is no free fluid. The urinary bladder appears normal. Impression: Study positive for acute appendicitis. There is no free air or abscess. End impression PQRS Compliance Statement: One or more of the following individualized dose reduction techniques were utilized for this examinat ion: 1. Automated exposure control 2. Adjustment of the mA and/or kV according to patient size 3. Use of iterative reconstruction technique Electronically signed by: Jesus Albreto Taylor III, MD (05/30/2020 11:59 PM) [facility]
[2020-05-31] MEDS ORDERED: KETOROLAC 15 MG/ML VIAL. IVP ONE (00:30)
[2020-05-31] MEDS ORDERED: fentaNYL PF VIAL 100 MCG/2 ML VIAL IV PRN ×3 (00:30→08:45)
[2020-05-31] MEDS ORDERED: fentaNYL PF VIAL 100 MCG/2 ML VIAL IVP ONE ×2 (00:30→10:45)
[2020-05-31] MEDS ORDERED: ONDANSETRON PF 4 MG/2 ML VIAL. IV PRN ×2 (00:30→08:45)
[2020-05-31] MEDS ORDERED: PIPERACILLIN/TAZOBACTAM 3.375 GM in IV NORMAL SALINE 50ML 50 ML IV ONE ×2 (00:30→10:30)
[2020-05-31] MEDS: IV NORMAL SALINE 1000ML BAG 1,000 ML IV SCH ×2 (00:30→01:21)
[2020-05-31 00:31] LABS: BILIRUBIN,URINE NEGATIVE (NEG); CLARITY,URINE CLEAR; COLOR,URINE YELLOW; NITRITE,URINE NEGATIVE (NEG); PROTEIN,URINE NEGATIVE (NEG-TRACE); UROBILINOGEN,URINE 0.2 mg/dL (0.2 mg/dL)
[2020-05-31 00:43] LABS: BACTERIA,URINE 0 /HPF (0-FEW); RBC,URINE 0 /HPF (0-2); WBC,URINE 0 /HPF (0-4)
[2020-05-31] MEDS: MORPHINE SULFATE 4 MG/ML VIAL. IV PRN ×3 (02:06→07:35)
[2020-05-31] MEDS ORDERED: SUBOXONE PO (02:19)
--- NOTE | 2020-05-31 03:09 | NUR ---
ADMIT NOTE The patient, RICHAR CASPER, 35 y/o, M admitted by ANAMARIA REZA MD, was given written information regarding hospital policies, unit procedures and contact persons. Patient orientated to room, plan of care discussed and admit packet reviewed. Patient's home medications verified and preferred pharmacy updated; patient reports NKDA. Patient now in bed, bed in lowest/locked position, call light within reach and no other needs voiced at this time.
--- NOTE | 2020-05-31 08:00 | PDOC2 ---
CONSULT Date of Consult Date of Consult DATE: 05/31/20 TIME: 07:56 Reason for Consult Reason for Consult: Acute appendicitis Referring Physician Referring Physician: Adrián Identification/Chief Complaint Chief Complaint Abdominal pain Source Source: Chart review, Patient History of Present Illness Reason for Visit: 35-year-old male with right lower quadrant abdominal pain for approximately 2 days. Evaluation emergency department with CT scan shows noncomplicated appendicitis Past Medical History Cardiovascular: No pertinent hx Pulmonary: No pertinent hx Psych: Anxiety, Addictions, Other Rheumatologic: No pertinent hx Infectious disease: No pertinent hx Past Surgical History Past Surgical History: No pertinent history Family History Family History: No Significant Social History ALCOHOL: occassional Drugs: Marijuana, Other Current Problem List Problem List Problems Medical Problems: (1) Appendicitis, acute Status: Acute Current Medications Current Medications Current Medications Sodium Chloride 1,000 ml @ 1,000 mls/hr 1X ONCE IV Last administered on 05/30/20at 23:19; Start 05/30/20 at 22:30; Stop 05/30/20 at 23:29; Status DC Ondansetron HCl (Zofran) 4 mg 1X ONCE IV Last administered on 05/30/20at 23:19; Start 05/30/20 at 22:30; Stop 05/30/20 at 22:31; Status DC Morphine Sulfate (Morphine Sulfate) 4 mg 1X ONCE IV Last administered on 05/30/20at 23:20; Start 05/30/20 at 22:30; Stop 05/30/20 at 22:31; Status DC Iohexol (Omnipaque 300 Mg/ml) 75 ml 1X ONCE IV Last administered on 05/30/20at 23:51; Start 05/30/20 at 23:55; Stop 05/30/20 at 23:56; Status DC Info (CONTRAST GIVEN -- Rx MONITORING) 1 each PRN DAILY PRN MC SEE COMMENTS; Start 05/30/20 at 23:55; Stop 06/01/20 at 23:54 Fentanyl Citrate (Fentanyl 2ml Vial) 75 mcg 1X ONCE IVP Last administered on 05/31/20at 00:31; Start 05/31/20 at 00:30; Stop 05/31/20 at 00:31; Status DC Piperacillin Sod/ Tazobactam Sod 3.375 gm/Sodium Chloride 50 ml @ 100 mls/hr 1X ONCE IV Last administered on 05/31/20at 01:19; Start 05/31/20 at 00:30; Stop 05/31/20 at 00:59; Status DC Ketorolac Tromethamine (Toradol 15mg Vial) 15 mg 1X ONCE IVP Last administered on 05/31/20at 01:18; Start 05/31/20 at 00:30; Stop 05/31/20 at 00:31; Status DC Ondansetron HCl (Zofran) 4 mg PRN Q8HRS PRN IV NAUSEA/VOMITING; Start 05/31/20 at 00:30; Stop 06/01/20 at 00:29 Morphine Sulfate (Morphine Sulfate) 4 mg PRN Q2HR PRN IV PAIN Last administered on 05/31/20at 07:35; Start 05/31/20 at 00:30; Stop 06/01/20 at 00:29 Fentanyl Citrate (Fentanyl 2ml Vial) 50 mcg PRN Q1HR PRN IV PAIN; Start 05/31/20 at 00:30; Stop 06/01/20 at 00:29 Sodium Chloride 1,000 ml @ 75 mls/hr [id number] IV Last administered on 05/31/20at 01:21; Start 05/31/20 at 00:30; Stop 06/01/20 at 00:29 Active Scripts Active Tramadol Hcl 50 Mg Tablet 50 Mg PO Q6HRS PRN Keflex (Cephalexin) 500 Mg Capsule 500 Mg PO QID 7 Days Bactrim Ds Tablet (Sulfamethoxazole/Trimethoprim) 1 Each Tablet 1 Tab PO BID 7 Days Amoxicillin 500 Mg Tablet 1 Tab PO BID [place] 5-325 Tablet (Acetaminophen/Hydrocodone Bitart) 1 Each Tablet 1 Tab PO Q6HRS [Nicotine 21MG] 1 PATCH Patch 1 Patch TD PRN DAILY PRN MDD 1 Culturelle (Lactobacillus Rhamnosus Gg) 1 Each Cap.sprink 1 Cap PO BID MDD 1 Percocet 10-325 Mg Tablet (Oxycodone/Acetaminophen) 1 Each Tablet 1 Tab PO PRN Q4HRS PRN MDD 1 Celebrex (Celecoxib) 100 Mg Capsule 100 Mg PO BID MDD 1 Reported [Suboxone] 16 Mg PO DAILY Allergies Allergies: Coded Allergies: I S O L A T I O N *CONTACT* (Verified Allergy, Unknown, 10/26/18) mrsa No Known Medication Allergies (Verified Allergy, Unknown, 10/26/18) ROS Gastrointestinal: Yes Abdominal Pain Physical Exam General: Alert, Oriented X3, Cooperative, mild distress HEENT: Atraumatic, EOMI Lungs: Clear to auscultation, Normal air movement Heart: Regular rate, No murmurs Abdomen: Normal bowel sounds, Soft, Other (Right lower quadrant tenderness) Extremities: No edema Skin: No significant lesion Neuro: Normal speech Psych/Mental Status: Mental status NL Vitals VITALS Vital Signs Date Time Temp Pulse Resp B/P (MAP) Pulse Ox O2 Delivery O2 Flow Rate FiO2 05/31/20 07:35 Room Air 05/31/20 04:49 16 05/31/20 04:08 96 05/31/20 03:26 99.9 101 117/73 (88) 99.9 Labs Labs Laboratory Tests Test 05/30/20 23:08 05/31/20 00:25 05/31/20 04:40 White Blood Count 11.7 x10^3/uL (4.0-11.0) Red Blood Count 5.02 x10^6/uL (4.30-5.70) Hemoglobin 16.0 g/dL (13.0-17.5) Hematocrit 45.8 % (39.0-53.0) Mean Corpuscular Volume 91 fL (79-100) Mean Corpuscular Hemoglobin 32 pg (25-35) Mean Corpuscular Hemoglobin Concent 35 g/dL (31-37) Red Cell Distribution Width 13.4 % (11.5-14.5) Platelet Count 171 x10^3/uL (140-400) Neutrophils (%) (Auto) 85 % (31-73) Lymphocytes (%) (Auto) 10 % (24-48) Monocytes (%) (Auto) 5 % (0-9) Eosinophils (%) (Auto) 0 % (0-3) Basophils (%) (Auto) 0 % (0-3) Neutrophils # (Auto) 9.9 x10^3/uL (1.8-7.7) Lymphocytes # (Auto) 1.2 x10^3/uL (1.0-4.8) Monocytes # (Auto) 0.5 x10^3/uL (0.0-1.1) Eosinophils # (Auto) 0.0 x10^3/uL (0.0-0.7) Basophils # (Auto) 0.0 x10^3/uL (0.0-0.2) Sodium Level 139 mmol/L (136-145) Potassium Level 4.0 mmol/L (3.5-5.1) Chloride Level 101 mmol/L (98-107) Carbon Dioxide Level 32 mmol/L (21-32) Anion Gap 6 (6-14) Blood Urea Nitrogen 10 mg/dL (8-26) Creatinine 0.9 mg/dL (0.7-1.3) Estimated GFR (Cockcroft-Gault) 95.0 BUN/Creatinine Ratio 11 (6-20) Glucose Level 82 mg/dL (70-99) Calcium Level 9.0 mg/dL (8.5-10.1) Magnesium Level 1.9 mg/dL (1.8-2.4) Total Bilirubin 0.9 mg/dL (0.2-1.0) Aspartate Amino Transf (AST/SGOT) 51 U/L (15-37) Alanine Aminotransferase (ALT/SGPT) 90 U/L (16-63) Alkaline Phosphatase 119 U/L (46-116) Total Protein 7.4 g/dL (6.4-8.2) Albumin 4.0 g/dL (3.4-5.0) Albumin/Globulin Ratio 1.2 (1.0-1.7) Lipase 35 U/L (73-393) Urine Collection Type Unknown Urine Color Yellow Urine Clarity Clear Urine pH 7.0 (<5.0-8.0) Urine Specific [place] 1.025 (1.000-1.030) Urine Protein Negative mg/dL (NEG-TRACE) Urine Glucose (UA) Negative mg/dL (NEG) Urine Ketones (Stick) Negative mg/dL (NEG) Urine Blood Negative (NEG) Urine Nitrite Negative (NEG) Urine Bilirubin Negative (NEG) Urine Urobilinogen Dipstick 0.2 mg/dL (0.2 mg/dL) Urine Leukocyte Esterase Negative (NEG) Urine RBC 0 /HPF (0-2) Urine WBC 0 /HPF (0-4) Urine Squamous Epithelial Cells None /LPF Urine Bacteria 0 /HPF (0-FEW) SARS-CoV-2 Antigen (Rapid) Negative (NEGATIVE) Laboratory Tests Test 05/30/20 23:08 05/31/20 00:25 05/31/20 04:40 White Blood Count 11.7 x10^3/uL (4.0-11.0) Red Blood Count 5.02 x10^6/uL (4.30-5.70) Hemoglobin 16.0 g/dL (13.0-17.5) Hematocrit 45.8 % (39.0-53.0) Mean Corpuscular Volume 91 fL (79-100) Mean Corpuscular Hemoglobin 32 pg (25-35) Mean Corpuscular Hemoglobin Concent 35 g/dL (31-37) Red Cell Distribution Width 13.4 % (11.5-14.5) Platelet Count 171 x10^3/uL (140-400) Neutrophils (%) (Auto) 85 % (31-73) Lymphocytes (%) (Auto) 10 % (24-48) Monocytes (%) (Auto) 5 % (0-9) Eosinophils (%) (Auto) 0 % (0-3) Basophils (%) (Auto) 0 % (0-3) Neutrophils # (Auto) 9.9 x10^3/uL (1.8-7.7) Lymphocytes # (Auto) 1.2 x10^3/uL (1.0-4.8) Monocytes # (Auto) 0.5 x10^3/uL (0.0-1.1) Eosinophils # (Auto) 0.0 x10^3/uL (0.0-0.7) Basophils # (Auto) 0.0 x10^3/uL (0.0-0.2) Sodium Level 139 mmol/L (136-145) Potassium Level 4.0 mmol/L (3.5-5.1) Chloride Level 101 mmol/L (98-107) Carbon Dioxide Level 32 mmol/L (21-32) Anion Gap 6 (6-14) Blood Urea Nitrogen 10 mg/dL (8-26) Creatinine 0.9 mg/dL (0.7-1.3) Estimated GFR (Cockcroft-Gault) 95.0 BUN/Creatinine Ratio 11 (6-20) Glucose Level 82 mg/dL (70-99) Calcium Level 9.0 mg/dL (8.5-10.1) Magnesium Level 1.9 mg/dL (1.8-2.4) Total Bilirubin 0.9 mg/dL (0.2-1.0) Aspartate Amino Transf (AST/SGOT) 51 U/L (15-37) Alanine Aminotransferase (ALT/SGPT) 90 U/L (16-63) Alkaline Phosphatase 119 U/L (46-116) Total Protein 7.4 g/dL (6.4-8.2) Albumin 4.0 g/dL (3.4-5.0) Albumin/Globulin Ratio 1.2 (1.0-1.7) Lipase 35 U/L (73-393) Urine Collection Type Unknown Urine Color Yellow Urine Clarity Clear Urine pH 7.0 (<5.0-8.0) Urine Specific [place] 1.025 (1.000-1.030) Urine Protein Negative mg/dL (NEG-TRACE) Urine Glucose (UA) Negative mg/dL (NEG) Urine Ketones (Stick) Negative mg/dL (NEG) Urine Blood Negative (NEG) Urine Nitrite Negative (NEG) Urine Bilirubin Negative (NEG) Urine Urobilinogen Dipstick 0.2 mg/dL (0.2 mg/dL) Urine Leukocyte Esterase Negative (NEG) Urine RBC 0 /HPF (0-2) Urine WBC 0 /HPF (0-4) Urine Squamous Epithelial Cells None /LPF Urine Bacteria 0 /HPF (0-FEW) SARS-CoV-2 Antigen (Rapid) Negative (NEGATIVE) Assessment/Plan Assessment/Plan Acute appendicitis plan laparoscopic appendectomy ALANA GONZALEZ MD May 31, 2020 07:59
[2020-05-31] MEDS ORDERED: KETOROLAC 30 MG/ML VIAL. IVP ONE (08:15)
[2020-05-31] MEDS ORDERED: IV RINGERS,LACTATED 1000ML 1,000 ML IV SCH (08:45)
[2020-05-31] MEDS ORDERED: HYDROmorphone 2 MG/ML VIAL IV PRN (08:45)
[2020-05-31] MEDS ORDERED: PROCHLORPERAZINE 10 MG/2 ML VIAL. IV PRN (08:45)
[2020-05-31] MEDS ORDERED: LIDOCAINE 1% PF 2 ML VIAL. ID PRN (08:45)
[2020-05-31] MEDS ORDERED: ROCURONIUM 50 MG/5 ML VIAL. ONE (09:25)
[2020-05-31] MEDS ORDERED: PROPOFOL 10 MG/ML (20ML) VIAL. IV ONE (09:25)
[2020-05-31] MEDS ORDERED: LIDOCAINE 2% PF 5 ML VIAL. ONE (09:25)
[2020-05-31] MEDS ORDERED: MIDAZOLAM HCL/PF 2 MG/2 ML VIAL. ONE (09:25)
[2020-05-31] MEDS ORDERED: fentaNYL PF VIAL 250 MCG/5 ML VIAL ONE (09:26)
[2020-05-31] MEDS ORDERED: fentaNYL PF VIAL 100 MCG/2 ML VIAL ONE (10:25)
[2020-05-31] MEDS ORDERED: BUPIVACAINE-EPI 0.25%-1:200000 MPF 30 ML VIAL. INJ ONE (10:30)
[2020-05-31] MEDS ORDERED: ONDANSETRON PF 4 MG/2 ML VIAL. ONE (11:08)
[2020-05-31] MEDS ORDERED: DEXAMETHASONE SOD PHOS 4 MG/ML VIAL ONE (11:08)
[2020-05-31] MEDS ORDERED: GLYCOPYRROLATE 1 MG/5 ML VIAL. ONE (11:14)
[2020-05-31] MEDS ORDERED: NEOSTIGMINE METHYLSULFATE 5 MG/5 ML SYRINGE. ONE (11:14)
[2020-05-31] MEDS ORDERED: KETOROLAC 30 MG/ML VIAL. ONE (11:17)
[2020-05-31] MEDS ORDERED: SEVOFLURANE 61 TO 120 MINUTES. IH ONE (11:22)
[2020-05-31] MEDS ORDERED: PHENYLEPHRINE in 0.9% NACL PF 1 MG/10 ML SYRINGE. IV ONE (11:22)
--- NOTE | 2020-05-31 11:58 | PDOC4 ---
Operative Note Operative Note Date: May 312020 at 1155 Preoperative diagnosis: Acute appendicitis Postoperative diagnosis: Same Procedure: Laparoscopic appendectomy Surgeon: Jann Specimen: Appendix Dictation: Patient is a 35-year-old male was mated to the hospital right lower quadrant abdominal pain elevated white count a CT scan showing signs consistent with acute appendicitis. Procedure of laparoscopic appendectomy was explained to the patient detail risk-benefit were also discussed including bleeding infection injury to intra-abdominal contents possible necessitating further or open operations alternatives to this procedure also discussed with the patient who seemed to understand and gave both verbal and written consent to have the procedure performed. Patient was taken to the operating room placed in the supine position general anesthesia was initiated once patient was sleeping intubated his abdomen was prepped and draped usual sterile fashion using ChloraPrep. An area just below the umbilicus was injected with quarter percent Marcaine with epinephrine incision was made 11 blade scalpel and a varies needle was placed within the abdomen creating pneumoperitoneum once this complete 12 mm port was placed and a 5 mm camera is placed within the abdomen was noted in the right lower quadrant quite a bit of purulent material as well as an inflamed appendix. A 5 mm port was placed low in the midline of the pelvis and a 5 mm port was placed in the right midabdomen. 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 The appendix was grasped retracted towards the anterior abdominal wall a window was propagated the base the appendix through the mesoappendix with a [place] dissector a Endo REJI was used to staple and transect the base of the appendix a second load was used to staple and transect the mesoappendix. Appendix then placed in Endo Catch bag and removed from the umbilicus the right lower quadrant was irrigated and suctioned dry hemostasis deemed to be appropriate and the pneumoperitoneum was reduced all ports were removed the fascial defect at the umbilicus was closed with a [id number] 0 Vicryl suture and skin was reapproximated all port sites for subcuticular Monocryl Mastisol Steri-Strips and island dressings were applied. Patient was awakened and extubated operating room taken to recovery in stable condition all sponge instrument needle counts listed as correct. Estimated blood loss 20 mL ALANA GONZALEZ MD May 31, 2020 11:58
[2020-05-31] MEDS ORDERED: oxyCODONE/APAP 5/325 1 TAB TABLET PO PRN (12:00)
[2020-05-31] MEDS ORDERED: MORPHINE SULFATE 2 MG/ML VIAL. ONE (12:08)
[2020-05-31] MEDS: MORPHINE SULFATE 2 MG/ML VIAL. IV PRN ×2 (12:10→12:18)
[2020-05-31] MEDS: oxyCODONE/APAP 5/325 1 TAB TABLET PO PRN ×3 (14:07→23:09)
[2020-05-31] MEDS: PIPERACILLIN/TAZOBACTAM 3.375 GM in IV NORMAL SALINE 50ML 50 ML IV SCH ×2 (17:16→23:05)
--- NOTE | 2020-05-31 18:21 | PDOC1 ---
History and Physical Date of Admission Date of Admission 05/31/2020 Identification/Chief Complaint Chief Complaint My ernesto avila Source Source: Chart review, Patient History of Present Illness History of Present Illness Patient is a 35-year-old gentleman with past medical history of opioid abuse currently on Suboxone who was in his usual state of health until the day prior to his admission when he experienced a sudden onset of right lower quadrant pain sharp in nature 10 out of 10 intensity with no radiation to the groin no radiation to the back. The patient denies any urinary symptoms no dietary transgressions he did have nausea and emesis and one episode of gastric content. The patient denied hematemesis Patient complained of being constipated and he had been taking some laxatives in order to relieve himself nevertheless the pain got worse as he strained and he c ould not bear the pain anymore. He was evaluated in the emergency department and found to have an acute appendicitis reason why we were asked to admit the patient for definitive treatment At the time of my visit the patient is in acute distress. Reassurance has been provided and the plan of care explained in detail all concerns were addressed to the best of my abilities Past Medical History Cardiovascular: No pertinent hx Pulmonary: No pertinent hx Psych: Anxiety, Addictions, Other Rheumatologic: No pertinent hx Infectious disease: No pertinent hx Past Surgical History Past Surgical History: No pertinent history Family History Family History: No Significant Social History ALCOHOL: occassional Drugs: Marijuana, Other Current Problem List Problem List Problems Medical Problems: (1) Appendicitis, acute Status: Acute Current Medications Current Medications Current Medications Medications (Trade) Dose Ordered Sig/John Start Time Stop Time Status Last Admin Dose Admin Bupivacaine HCl/ Epinephrine Bitart (Sensorcaine-Epi 0.25%-1:[id number] Mpf) 30 ml 1X ONCE 05/31/20 10:30 05/31/20 10:31 DC 05/31/20 11:11 20 ML Dexamethasone Sodium Phosphate (Decadron) 4 mg STK-MED ONCE 05/31/20 11:08 05/31/20 11:09 DC Fentanyl Citrate (Fentanyl 2ml Vial) 100 mcg 1X ONCE 05/31/20 10:45 05/31/20 10:46 DC 05/31/20 10:42 100 MCG Fentanyl Citrate (Fentanyl 5ml Vial) 250 mcg STK-MED ONCE 05/31/20 09:26 05/31/20 09:26 DC Glycopyrrolate (Robinul) 1 mg STK-MED ONCE 05/31/20 11:14 05/31/20 11:14 DC Hydromorphone HCl (Dilaudid) 0.5 mg PRN Q10MIN PRN 05/31/20 08:45 06/01/20 08:44 Info (CONTRAST GIVEN -- Rx MONITORING) 1 each PRN DAILY PRN 05/30/20 23:55 06/01/20 23:54 Iohexol (Omnipaque 300 Mg/ml) 75 ml 1X ONCE 05/30/20 23:55 05/30/20 23:56 DC 05/30/20 23:51 75 ML Ketorolac Tromethamine (Toradol 15mg Vial) 15 mg 1X ONCE 05/31/20 00:30 05/31/20 00:31 DC 05/31/20 01:18 15 MG Ketorolac Tromethamine (Toradol 30mg Vial) 30 mg STK-MED ONCE 05/31/20 11:17 05/31/20 11:17 DC Lidocaine HCl (Lidocaine Pf 2% Vial) 5 ml STK-MED ONCE 05/31/20 09:25 05/31/20 09:25 DC Lidocaine HCl (Xylocaine-Mpf 1% 2ml Vial) 2 ml PRN 1X PRN 05/31/20 08:45 06/01/20 08:44 Midazolam HCl (Versed) 2 mg STK-MED ONCE 05/31/20 09:25 05/31/20 09:26 DC Morphine Sulfate (Morphine Sulfate) 2 mg STK-MED ONCE 05/31/20 12:08 05/31/20 12:08 DC Neostigmine [place] (Neostigmine Methylsulfate) 5 mg STK-MED ONCE 05/31/20 11:14 05/31/20 11:15 DC Ondansetron HCl (Zofran) 4 mg STK-MED ONCE 05/31/20 11:08 05/31/20 11:09 DC Oxycodone/ Acetaminophen (Percocet 5/325) 2 tab PRN Q4HRS PRN 05/31/20 12:00 05/31/20 14:07 2 TAB Phenylephrine HCl (PHENYLEPHRINE in 0.9% NACL PF) 1 mg STK-MED ONCE 05/31/20 11:22 05/31/20 11:22 DC Piperacillin Sod/ Tazobactam Sod 3.375 gm/Sodium Chloride 50 ml @ 100 mls/hr Q6HRS 05/31/20 18:00 05/31/20 17:16 100 MLS/HR Prochlorperazine Edisylate (Compazine) 5 mg PACU PRN PRN 05/31/20 08:45 06/01/20 08:44 Propofol (Diprivan) 200 mg STK-MED ONCE 05/31/20 09:25 05/31/20 09:25 DC Ringer's Solution 1,000 ml @ 30 mls/hr Q24H 05/31/20 08:45 05/31/20 20:44 05/31/20 08:45 30 MLS/HR Rocuronium [place] (Zemuron) 50 mg STK-MED ONCE 05/31/20 09:25 05/31/20 09:26 DC Sevoflurane (Ultane) 60 ml STK-MED ONCE 05/31/20 11:22 05/31/20 11:22 DC Sodium Chloride 1,000 ml @ 75 mls/hr [id number] 05/31/20 00:30 06/01/20 00:29 05/31/20 01:21 75 MLS/HR Allergies Allergies Allergies Coded Allergies Type Severity Reaction Last Updated Verified I S O L A T I O N *CONTACT* Allergy Unknown 10/26/18 Yes No Known Medication Allergies Allergy Unknown 10/26/18 Yes ROS Review of System CONSTITUTIONAL: No fever or chills EYES: No recent changes SKIN: No rash or itching CARDIOVASCULAR: No chest pain, syncope, palpitations, or edema RESPIRATORY: No SOB or cough GASTROINTESTINAL: No nausea, vomiting or abdominal pain NEUROLOGICAL: No headaches or weakness ENDOCRINE: No cold or heat intolerance GENITOURINARY: No urgency or frequency of urination MUSCULOSKELETAL: No back pain or joint pain LYMPHATICS: No enlarged lymph nodes PSYCHIATRIC: No anxiety or depression Physical Exam Physical Exam GEN.: No apparent distress. Alert and oriented. HEENT: Head is normocephalic, atraumatic NECK: Supple. LUNGS: Clear to auscultation. HEART: RRR, S1, S2 present. Peripheral pulses intact ABDOMEN: Soft, nontender. Positive bowel sounds. EXTREMITIES: Without any cyanosis. NEUROLOGIC: Normal speech, normal tone PSYCHIATRIC: Normal affect, normal mood. SKIN: No ulcerations Vitals Vitals Vital Signs Date Time Temp Pulse Resp B/P (MAP) Pulse Ox O2 Delivery O2 Flow Rate FiO2 05/31/20 16:10 90 19 103/49 (67) 97 Room Air 05/31/20 12:39 97.7 97.7 05/31/20 12:10 6.0 Labs Labs Laboratory Tests Test 05/30/20 23:08 05/31/20 00:25 05/31/20 04:40 White Blood Count 11.7 x10^3/uL (4.0-11.0) Red Blood Count 5.02 x10^6/uL (4.30-5.70) Hemoglobin 16.0 g/dL (13.0-17.5) Hematocrit 45.8 % (39.0-53.0) Mean Corpuscular Volume 91 fL (79-100) Mean Corpuscular Hemoglobin 32 pg (25-35) Mean Corpuscular Hemoglobin Concent 35 g/dL (31-37) Red Cell Distribution Width 13.4 % (11.5-14.5) Platelet Count 171 x10^3/uL (140-400) Neutrophils (%) (Auto) 85 % (31-73) Lymphocytes (%) (Auto) 10 % (24-48) Monocytes (%) (Auto) 5 % (0-9) Eosinophils (%) (Auto) 0 % (0-3) Basophils (%) (Auto) 0 % (0-3) Neutrophils # (Auto) 9.9 x10^3/uL (1.8-7.7) Lymphocytes # (Auto) 1.2 x10^3/uL (1.0-4.8) Monocytes # (Auto) 0.5 x10^3/uL (0.0-1.1) Eosinophils # (Auto) 0.0 x10^3/uL (0.0-0.7) Basophils # (Auto) 0.0 x10^3/uL (0.0-0.2) Sodium Level 139 mmol/L (136-145) Potassium Level 4.0 mmol/L (3.5-5.1) Chloride Level 101 mmol/L (98-107) Carbon Dioxide Level 32 mmol/L (21-32) Anion Gap 6 (6-14) Blood Urea Nitrogen 10 mg/dL (8-26) Creatinine 0.9 mg/dL (0.7-1.3) Estimated GFR (Cockcroft-Gault) 95.0 BUN/Creatinine Ratio 11 (6-20) Glucose Level 82 mg/dL (70-99) Calcium Level 9.0 mg/dL (8.5-10.1) Magnesium Level 1.9 mg/dL (1.8-2.4) Total Bilirubin 0.9 mg/dL (0.2-1.0) Aspartate Amino Transf (AST/SGOT) 51 U/L (15-37) Alanine Aminotransferase (ALT/SGPT) 90 U/L (16-63) Alkaline Phosphatase 119 U/L (46-116) Total Protein 7.4 g/dL (6.4-8.2) Albumin 4.0 g/dL (3.4-5.0) Albumin/Globulin Ratio 1.2 (1.0-1.7) Lipase 35 U/L (73-393) Urine Collection Type Unknown Urine Color Yellow Urine Clarity Clear Urine pH 7.0 (<5.0-8.0) Urine Specific [place] 1.025 (1.000-1.030) Urine Protein Negative mg/dL (NEG-TRACE) Urine Glucose (UA) Negative mg/dL (NEG) Urine Ketones (Stick) Negative mg/dL (NEG) Urine Blood Negative (NEG) Urine Nitrite Negative (NEG) Urine Bilirubin Negative (NEG) Urine Urobilinogen Dipstick 0.2 mg/dL (0.2 mg/dL) Urine Leukocyte Esterase Negative (NEG) Urine RBC 0 /HPF (0-2) Urine WBC 0 /HPF (0-4) Urine Squamous Epithelial Cells None /LPF Urine Bacteria 0 /HPF (0-FEW) Nasal Screen MRSA (PCR) Positive (NEGATIVE) SARS-CoV-2 Antigen (Rapid) Negative (NEGATIVE) Laboratory Tests Test 05/30/20 23:08 05/31/20 00:25 05/31/20 04:40 White Blood Count 11.7 x10^3/uL (4.0-11.0) Red Blood Count 5.02 x10^6/uL (4.30-5.70) Hemoglobin 16.0 g/dL (13.0-17.5) Hematocrit 45.8 % (39.0-53.0) Mean Corpuscular Volume 91 fL (79-100) Mean Corpuscular Hemoglobin 32 pg (25-35) Mean Corpuscular Hemoglobin Concent 35 g/dL (31-37) Red Cell Distribution Width 13.4 % (11.5-14.5) Platelet Count 171 x10^3/uL (140-400) Neutrophils (%) (Auto) 85 % (31-73) Lymphocytes (%) (Auto) 10 % (24-48) Monocytes (%) (Auto) 5 % (0-9) Eosinophils (%) (Auto) 0 % (0-3) Basophils (%) (Auto) 0 % (0-3) Neutrophils # (Auto) 9.9 x10^3/uL (1.8-7.7) Lymphocytes # (Auto) 1.2 x10^3/uL (1.0-4.8) Monocytes # (Auto) 0.5 x10^3/uL (0.0-1.1) Eosinophils # (Auto) 0.0 x10^3/uL (0.0-0.7) Basophils # (Auto) 0.0 x10^3/uL (0.0-0.2) Sodium Level 139 mmol/L (136-145) Potassium Level 4.0 mmol/L (3.5-5.1) Chloride Level 101 mmol/L (98-107) Carbon Dioxide Level 32 mmol/L (21-32) Anion Gap 6 (6-14) Blood Urea Nitrogen 10 mg/dL (8-26) Creatinine 0.9 mg/dL (0.7-1.3) Estimated GFR (Cockcroft-Gault) 95.0 BUN/Creatinine Ratio 11 (6-20) Glucose Level 82 mg/dL (70-99) Calcium Level 9.0 mg/dL (8.5-10.1) Magnesium Level 1.9 mg/dL (1.8-2.4) Total Bilirubin 0.9 mg/dL (0.2-1.0) Aspartate Amino Transf (AST/SGOT) 51 U/L (15-37) Alanine Aminotransferase (ALT/SGPT) 90 U/L (16-63) Alkaline Phosphatase 119 U/L (46-116) Total Protein 7.4 g/dL (6.4-8.2) Albumin 4.0 g/dL (3.4-5.0) Albumin/Globulin Ratio 1.2 (1.0-1.7) Lipase 35 U/L (73-393) Urine Collection Type Unknown Urine Color Yellow Urine Clarity Clear Urine pH 7.0 (<5.0-8.0) Urine Specific [place] 1.025 (1.000-1.030) Urine Protein Negative mg/dL (NEG-TRACE) Urine Glucose (UA) Negative mg/dL (NEG) Urine Ketones (Stick) Negative mg/dL (NEG) Urine Blood Negative (NEG) Urine Nitrite Negative (NEG) Urine Bilirubin Negative (NEG) Urine Urobilinogen Dipstick 0.2 mg/dL (0.2 mg/dL) Urine Leukocyte Esterase Negative (NEG) Urine RBC 0 /HPF (0-2) Urine WBC 0 /HPF (0-4) Urine Squamous Epithelial Cells None /LPF Urine Bacteria 0 /HPF (0-FEW) Nasal Screen MRSA (PCR) Positive (NEGATIVE) SARS-CoV-2 Antigen (Rapid) Negative (NEGATIVE) VTE Prophylaxis Ordered VTE Prophylaxis Devices: No VTE Pharmacological Prophylaxi: Yes Assessment/Plan Assessment/Plan Acute appendicitis History of opioid abuse Marijuana use Suboxone therapy Plan Follow recommendations from surgical assist Scheduled for surgery later in the day Symptoms relief DVT prophylaxis with Lovenox Justifications for Admission Other Justification TRUE ARMIJO MD May 31, 2020 18:21
[2020-05-31] MEDS ORDERED: NICOTINE 21MG PATCH. TD PRN (18:30)
[2020-06-01 03:15] VITALS: BP 119/64
[2020-06-01] MEDS: oxyCODONE/APAP 5/325 1 TAB TABLET PO PRN ×3 (04:00→12:29)
[2020-06-01] MEDS: PIPERACILLIN/TAZOBACTAM 3.375 GM in IV NORMAL SALINE 50ML 50 ML IV SCH ×2 (05:59→11:43)
[2020-06-01 07:28] VITALS: BP 133/58
[2020-06-01 08:45] LABS: BASO % 0 % (0-3); EOS % 0 % (0-3); HEMATOCRIT 41.3 % (39.0-53.0); LYMPH # 1.4 x10^3/uL (1.0-4.8); LYMPH % 10 % (24-48); MEAN CORPUSCULAR HEMOGLOBIN 31 pg (25-35); MEAN CORPUSCULAR HGB CONC 34 g/dL (31-37); MEAN CORPUSCULAR VOLUME 92 fL (79-100); MONO # 0.8 x10^3/uL (0.0-1.1); MONO % 6 % (0-9); NEUT # 11.6 x10^3/uL (1.8-7.7); NEUT % 84 % (31-73); PLATELET COUNT 175 x10^3/uL (140-400); RED BLOOD COUNT 4.48 x10^6/uL (4.30-5.70); RED CELL DISTRIBUTION WIDTH 13.7 % (11.5-14.5); WHITE BLOOD COUNT 13.8 x10^3/uL (4.0-11.0)
[2020-06-01 09:07] LABS: CALCIUM 8.5 mg/dL (8.5-10.1); CREATININE 1.2 mg/dL (0.7-1.3); GFR 68.1; POTASSIUM 4.2 mmol/L (3.5-5.1)
[2020-06-01 10:37] VITALS: BP 137/77
[2020-06-01] MEDS ORDERED: SENNOSIDES/DOCUSATE 8.6/50MG TABLET. PO PRN (10:45)
[2020-06-01] MEDS ORDERED: POLYETHYLENE GLYCOL 3350 17 GM PACKET. PO PRN (10:45)
--- NOTE | 2020-06-01 14:25 | NUR ---
IP: Pt's hx of mrsa was a rectal abscess in 2019. No active abscesses. Pt may be removed for isolation.
[2020-06-01 14:34] VITALS: BP 121/47
[2020-06-01] MEDS ORDERED: AMOX1TAB61 PO (15:44)
--- NOTE | 2020-06-01 15:59 | NUR ---
Discharge instructions and belongings reviewed with patient, verbalized understanding. Patient will be escorted out via wheelchair by [facility] [facility].
--- NOTE | 2020-06-01 18:39 | PDOC3 ---
Discharge Summary Visit Information Date of Admission: May 31, 2020 Date of Discharge: Jun 01, 2020 Admitting Diagnosis Comment: Acute appendicitis History of opioid abuse Marijuana use Suboxone therapy Final Diagnosis Problems Medical Problems: (1) Appendicitis, acute Status: Acute Acute appendicitis History of opioid abuse Marijuana use Suboxone therapy Brief Hospital Course Allergies Allergies Coded Allergies Type Severity Reaction Last Updated Verified I S O L A T I O N *CONTACT* Allergy Unknown 10/26/18 Yes No Known Medication Allergies Allergy Unknown 10/26/18 Yes Vital Signs Vital Signs Date Time Temp Pulse Resp B/P (MAP) Pulse Ox O2 Delivery O2 Flow Rate FiO2 06/01/20 14:34 97.9 71 18 121/47 (71) 94 Room Air 97.9 05/31/20 12:10 6.0 Lab Results Laboratory Tests Test 05/30/20 23:08 05/31/20 00:25 05/31/20 04:40 06/01/20 07:52 White Blood Count 11.7 x10^3/uL (4.0-11.0) 13.8 x10^3/uL (4.0-11.0) Red Blood Count 5.02 x10^6/uL (4.30-5.70) 4.48 x10^6/uL (4.30-5.70) Hemoglobin 16.0 g/dL (13.0-17.5) 14.0 g/dL (13.0-17.5) Hematocrit 45.8 % (39.0-53.0) 41.3 % (39.0-53.0) Mean Corpuscular Volume 91 fL (79-100) 92 fL (79-100) Mean Corpuscular Hemoglobin 32 pg (25-35) 31 pg (25-35) Mean Corpuscular Hemoglobin Concent 35 g/dL (31-37) 34 g/dL (31-37) Red Cell Distribution Width 13.4 % (11.5-14.5) 13.7 % (11.5-14.5) Platelet Count 171 x10^3/uL (140-400) 175 x10^3/uL (140-400) Neutrophils (%) (Auto) 85 % (31-73) 84 % (31-73) Lymphocytes (%) (Auto) 10 % (24-48) 10 % (24-48) Monocytes (%) (Auto) 5 % (0-9) 6 % (0-9) Eosinophils (%) (Auto) 0 % (0-3) 0 % (0-3) Basophils (%) (Auto) 0 % (0-3) 0 % (0-3) Neutrophils # (Auto) 9.9 x10^3/uL (1.8-7.7) 11.6 x10^3/uL (1.8-7.7) Lymphocytes # (Auto) 1.2 x10^3/uL (1.0-4.8) 1.4 x10^3/uL (1.0-4.8) Monocytes # (Auto) 0.5 x10^3/uL (0.0-1.1) 0.8 x10^3/uL (0.0-1.1) Eosinophils # (Auto) 0.0 x10^3/uL (0.0-0.7) 0.0 x10^3/uL (0.0-0.7) Basophils # (Auto) 0.0 x10^3/uL (0.0-0.2) 0.0 x10^3/uL (0.0-0.2) Sodium Level 139 mmol/L (136-145) 142 mmol/L (136-145) Potassium Level 4.0 mmol/L (3.5-5.1) 4.2 mmol/L (3.5-5.1) Chloride Level 101 mmol/L (98-107) 106 mmol/L (98-107) Carbon Dioxide Level 32 mmol/L (21-32) 28 mmol/L (21-32) Anion Gap 6 (6-14) 8 (6-14) Blood Urea Nitrogen 10 mg/dL (8-26) 16 mg/dL (8-26) Creatinine 0.9 mg/dL (0.7-1.3) 1.2 mg/dL (0.7-1.3) Estimated GFR (Cockcroft-Gault) 95.0 68.1 BUN/Creatinine Ratio 11 (6-20) Glucose Level 82 mg/dL (70-99) 109 mg/dL (70-99) Calcium Level 9.0 mg/dL (8.5-10.1) 8.5 mg/dL (8.5-10.1) Magnesium Level 1.9 mg/dL (1.8-2.4) Total Bilirubin 0.9 mg/dL (0.2-1.0) Aspartate Amino Transf (AST/SGOT) 51 U/L (15-37) Alanine Aminotransferase (ALT/SGPT) 90 U/L (16-63) Alkaline Phosphatase 119 U/L (46-116) Total Protein 7.4 g/dL (6.4-8.2) Albumin 4.0 g/dL (3.4-5.0) Albumin/Globulin Ratio 1.2 (1.0-1.7) Lipase 35 U/L (73-393) Urine Collection Type Unknown Urine Color Yellow Urine Clarity Clear Urine pH 7.0 (<5.0-8.0) Urine Specific [place] 1.025 (1.000-1.030) Urine Protein Negative mg/dL (NEG-TRACE) Urine Glucose (UA) Negative mg/dL (NEG) Urine Ketones (Stick) Negative mg/dL (NEG) Urine Blood Negative (NEG) Urine Nitrite Negative (NEG) Urine Bilirubin Negative (NEG) Urine Urobilinogen Dipstick 0.2 mg/dL (0.2 mg/dL) Urine Leukocyte Esterase Negative (NEG) Urine RBC 0 /HPF (0-2) Urine WBC 0 /HPF (0-4) Urine Squamous Epithelial Cells None /LPF Urine Bacteria 0 /HPF (0-FEW) Nasal Screen MRSA (PCR) Positive (NEGATIVE) SARS-CoV-2 Antigen (Rapid) Negative (NEGATIVE) Laboratory Tests Test 06/01/20 07:52 White Blood Count 13.8 x10^3/uL (4.0-11.0) Red Blood Count 4.48 x10^6/uL (4.30-5.70) Hemoglobin 14.0 g/dL (13.0-17.5) Hematocrit 41.3 % (39.0-53.0) Mean Corpuscular Volume 92 fL (79-100) Mean Corpuscular Hemoglobin 31 pg (25-35) Mean Corpuscular Hemoglobin Concent 34 g/dL (31-37) Red Cell Distribution Width 13.7 % (11.5-14.5) Platelet Count 175 x10^3/uL (140-400) Neutrophils (%) (Auto) 84 % (31-73) Lymphocytes (%) (Auto) 10 % (24-48) Monocytes (%) (Auto) 6 % (0-9) Eosinophils (%) (Auto) 0 % (0-3) Basophils (%) (Auto) 0 % (0-3) Neutrophils # (Auto) 11.6 x10^3/uL (1.8-7.7) Lymphocytes # (Auto) 1.4 x10^3/uL (1.0-4.8) Monocytes # (Auto) 0.8 x10^3/uL (0.0-1.1) Eosinophils # (Auto) 0.0 x10^3/uL (0.0-0.7) Basophils # (Auto) 0.0 x10^3/uL (0.0-0.2) Sodium Level 142 mmol/L (136-145) Potassium Level 4.2 mmol/L (3.5-5.1) Chloride Level 106 mmol/L (98-107) Carbon Dioxide Level 28 mmol/L (21-32) Anion Gap 8 (6-14) Blood Urea Nitrogen 16 mg/dL (8-26) Creatinine 1.2 mg/dL (0.7-1.3) Estimated GFR (Cockcroft-Gault) 68.1 Glucose Level 109 mg/dL (70-99) Calcium Level 8.5 mg/dL (8.5-10.1) Brief Hospital Course History of Present Illness Patient is a 35-year-old gentleman with past medical history of opioid abuse currently on Suboxone who was in his usual state of health until the day prior to his admission when he experienced a sudden onset of right lower quadrant pain sharp in nature 10 out of 10 intensity with no radiation to the groin no radiation to the back. The patient denies any urinary symptoms no dietary transgressions he did have nausea and emesis and one episode of gastric content. The patient denied hematemesis Patient complained of being constipated and he had been taking some laxatives in order to relieve himself nevertheless the pain got worse as he strained and he could not bear the pain anymore. He was evaluated in the emergency department and found to have an acute appendicitis reason why we were asked to admit the patient for definitive treatment At the time of my visit the patient is in acute distress. Reassurance has been provided and the plan of care explained in detail all concerns were addressed to the best of my abilities Patient underwent appendectomy laparoscopically and had no complications from the procedure. The patient was deemed appropriate for discharge by her surgical specialist and he will be resuming his Suboxone once he gets home. No complain ts voiced prior to discharge signs and symptoms of concern when to seek medical attention were discussed with the patient prior to discharge Gen.: well-developed well-nourished in no apparent distress Head: Normal shape atraumatic Eyes: Pupils equal reactive to light and accommodation, normal conjunctivae and lids Ears: Normal shape Nose: Normal shape no trauma Mouth: No exudates of the back of throat no thrush no lesions Neck: Supple no JVD no carotid bruit or lymphadenopathy no thyromegaly Chest: Lungs clear to auscultation with good inspiratory effort no crackles rales or rhonchi Cardiovascular: S1-S2 regular rhythm no murmurs gallops or rubs Abdomen: Bowel sounds present soft slight tenderness to deep palpation no peritoneal signs Discharge Information Condition at Discharge: Improved Follow Up: Weeks Disposition/Orders: D/C to Home Scheduled Amoxicillin/Potassium Clav (Augmentin 875-125 Tablet) 1 Each Tablet, 1 TAB PO BID for appendicits for 7 Days, #14 Ref 0 Prescribed by: TRUE ARMIJO MD on 06/01/20 1544 Celecoxib (Celebrex) 100 Mg Capsule, 100 MG PO BID for pain MDD 1, #30 Prescribed by: CHANEL VALADEZ on 10/30/18 1014 Hydrocodone/Apap 5-325 (Hachita 5-325 Tablet) 1 Each Tablet, 1 TAB PO Q6HRS, #8 Prescribed by: Sharonda Jones APRN on 01/26/19 1715 Lactobacillus Rhamnosus Gg (Culturelle) 1 Each Cap.sprink, 1 CAP PO BID for probiotic, or just eat yogurt MDD 1, #14 Prescribed by: CHANEL VALADEZ on 10/30/18 1014 [Suboxone] , 16 MG PO DAILY for OPIOID ADDICTION, (Reported) Entered as Reported by: MARU ERICKSON on 05/31/20218 Last Taken: Unknown Dose on 05/30/20 Last Action: New Order on 05/31/20218 by MARU ERICKSON Scheduled PRN Oxycodone/Apap 10-325 (Percocet 10-325 Mg Tablet ) 1 Each Tablet, 1 TAB PO PRN Q4HRS PRN for pain MDD 1, #30 Prescribed by: CHANEL VALADEZ on 10/30/18 1014 Tramadol Hcl (Tramadol Hcl) 50 Mg Tablet, 50 MG PO Q6HRS PRN for PAIN, #14 Prescribed by: EVIE GUZMÁN MD on 12/27/19 193 [Nicotine 21MG] 1 PATCH PATCH, 1 PATCH TD PRN DAILY PRN for SMOKING CESSATION MDD 1, #7 Prescribed by: CHANEL VALADEZ on 10/30/18 1014 Discontinued Medications Amoxicillin (Amoxicillin) 500 Mg Tablet, 1 TAB PO BID, #14 Prescribed by: Sharonda Jones APRN on 01/26/19 1715 Cephalexin (Keflex) 500 Mg Capsule, 500 MG PO QID for 7 Days, #28 Prescribed by: EVIE GUZMÁN MD on 12/27/191931 Sulfamethoxazole/Trimethoprim (Bactrim Ds Tablet) 1 Each Tablet, 1 TAB PO BID for 7 Days, #14 Ref 0 Prescribed by: EVIE GUZMÁN MD on 12/27/191931 Justicifation of Admission Dx: Justifications for Admission: Justification of Admission Dx: N/A TRUE ARMIJO MD Jun 01, 2020 18:39
[2020-06-01] MEDS ORDERED: LACTOBACILLUS RHAMNOSUS GG 1 CAPSULE. PO SCH (21:00)
== END 2020-06-01 16:01 | disposition home or self-care (01) ==
LOC: ER 22:08 → 4 NORTH 05-31 00:19
PROVIDERS: ADMIT Family Medicine; ATTEND Family Medicine
DX: K35.80 Unspecified acute appendicitis (principal); Z20.828 Contact with and (suspected) exposure to other viral communicable diseases; F41.9 Anxiety disorder, unspecified; F17.200 Nicotine dependence, unspecified, uncomplicated; K59.00 Constipation, unspecified; F12.90 Cannabis use, unspecified, uncomplicated; F11.10 Opioid abuse, uncomplicated; Z86.19 Personal history of other infectious and parasitic diseases; Z90.49 Acquired absence of other specified parts of digestive tract; Z98.890 Other specified postprocedural states
CPT/HCPCS: 36415; 44970; 74177; 80048; 80053; 81001; 83690; 83735; 85025; 87426; 87641; 96361; 96365; 96366; 96375; 96376; 99285; G0378; J1100; J1885; J2270; J2370; J2405; J2543; J2704; J2710; J3010; J3490; J7030; J7120; Q9967; U0003; 88304; G0379; J2250

== ENCOUNTER 2020-07-03 17:49 | Emergency (ER) | payer SELFPAY ==
[~2020-07-03] VITALS: Ht 172.7 cm; Wt 91.0 kg
[~2020-07-03 17:49] MED LIST changes: +AMOX1TAB61 PO; +SUBOXONE PO
--- NOTE | 2020-07-03 18:13 | PHYS DOC ---
Past Medical History Past Medical History: Hepatitis, Other Additional Past Medical Histor: MRSA (HAND & R CALF), HEP C, opiate addiction Past Surgical History: Cholecystectomy, Tonsillectomy, Other Additional Past Surgical Histo: MRSA from Right calf debridement, HERNIA REPAIR Smoking Status: Current Every Day Smoker Alcohol Use: Rarely Drug Use: Marijuana General Adult EDM: Chief Complaint: LOWER EXTREMITY SWELLING HPI: HPI: Patient is a 35 year old male presents emergency department complaining of bilateral lower leg infections. 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 Patient states he has not used IV drugs in over a year. Patient states that when he gets like this he usually receives IV clindamycin, vancomycin and is sent home with p.o. Bactrim. Patient states that he usually develops these infections while he is in prison because jails are dirty. Patient reports this current infection has been going on for the past 2 weeks. Patient states that this infection is rather mild, and he has experienced far worse bilateral lower extremity infections in the past. Patient states he just wants to get on top of this infectious process before he gets out of hand. Patient denies recent fever chills, chest pains, shortness of breath, loss of taste or loss of smell, patient denies any COVID-19 virus symptoms, does not wish to be checked for the COVID-19 virus today. Review of Systems: Review of Systems: 14 body systems of review of systems have been reviewed. See HPI for pertinent positives and negative responses, otherwise all other systems are negative, nonpertinent or noncontributory. Heart Score: Risk Factors: Risk Factors: DM, Current or recent (<one month) smoker, HTN, HLP, family history of CAD, obesity. Risk Scores: Score 0 - 3: 2.5% MACE over next 6 weeks - Discharge Home Score 4 - 6: 20.3% MACE over next 6 weeks - Admit for Clinical Observation Score 7 - 10: 72.7% MACE over next 6 weeks - Early Invasive Strategies Allergies: Allergies: Allergies Coded Allergies Type Severity Reaction Last Updated Verified I S O L A T I O N *CONTACT* Allergy Unknown 10/26/18 Yes No Known Medication Allergies Allergy Unknown 10/26/18 Yes Physical Exam: PE: Constitutional: Well developed, well nourished, no acute distress, non-toxic a ppearance. Patient in no apparent distress, oral temp taken during exam was 102.1. HENT: Normocephalic, atraumatic, bilateral external ears normal, oropharynx moist, no oral exudates, nose normal. [] Eyes: PERRLA, EOMI, conjunctiva normal, no discharge. [] Neck: Normal range of motion, no tenderness, supple, no stridor. [] Cardiovascular:Heart rate regular rhythm, no murmur [] Lungs & Thorax: Bilateral breath sounds clear to auscultation [] Abdomen: Bowel sounds normal, soft, no tenderness, no masses, no pulsatile masses. [] Skin: Warm, dry, no erythema, no rash. Several small less than 10 3 mm abscesses of the lower extremities with lymphangitis extending proximally. No purulent open abscesses draining. Erythematous skin around abscesses consistent with cellulitis. Back: No tenderness, no CVA tenderness. [] Extremities: No tenderness, no cyanosis, no clubbing, ROM intact, no edema. [] Neurologic: Alert and oriented X 3, normal motor function, normal sensory function, no focal deficits noted. [] Psychologic: Affect normal, judgement normal, mood normal. [] Current Patient Data: Labs: Laboratory Tests Test 07/03/20 18:35 White Blood Count 9.4 x10^3/uL Red Blood Count 4.75 x10^6/uL Hemoglobin 14.8 g/dL Hematocrit 42.7 % Mean Corpuscular Volume 90 fL Mean Corpuscular Hemoglobin 31 pg Mean Corpuscular Hemoglobin Concent 35 g/dL Red Cell Distribution Width 13.2 % Platelet Count 103 x10^3/uL Neutrophils (%) (Auto) 80 % Lymphocytes (%) (Auto) 10 % Monocytes (%) (Auto) 10 % Eosinophils (%) (Auto) 0 % Basophils (%) (Auto) 0 % Neutrophils # (Auto) 7.5 x10^3/uL Lymphocytes # (Auto) 0.9 x10^3/uL Monocytes # (Auto) 0.9 x10^3/uL Eosinophils # (Auto) 0.0 x10^3/uL Basophils # (Auto) 0.0 x10^3/uL Sodium Level 132 mmol/L Potassium Level 4.2 mmol/L Chloride Level 94 mmol/L Carbon Dioxide Level 30 mmol/L Anion Gap 8 Blood Urea Nitrogen 10 mg/dL Creatinine 1.1 mg/dL Estimated GFR (Cockcroft-Gault) 75.3 BUN/Creatinine Ratio 9 Glucose Level 128 mg/dL Lactic Acid Level 1.9 mmol/L Calcium Level 9.0 mg/dL Total Bilirubin 1.0 mg/dL Aspartate Amino Transf (AST/SGOT) 33 U/L Alanine Aminotransferase (ALT/SGPT) 58 U/L Alkaline Phosphatase 103 U/L Total Protein 6.9 g/dL Albumin 3.3 g/dL Albumin/Globulin Ratio 0.9 Current Medications Medications (Trade) Dose Ordered Sig/John Route PRN Reason Start Time Stop Time Status Last Admin Dose Admin Sodium Chloride 1,000 ml @ 1,000 mls/hr 1X ONCE IV 07/03/20 18:15 07/03/20 19:14 DC 07/03/20 19:10 Clindamycin Phosphate 50 ml @ 100 mls/hr 1X ONCE IV 07/03/20 19:00 07/03/20 19:29 DC 07/03/20 19:09 Acetaminophen (Tylenol) 1,000 mg 1X ONCE PO 07/03/20 18:15 07/03/20 18:19 DC 07/03/20 19:09 Vancomycin HCl 250 ml @ 250 mls/hr 1X ONCE IV 07/03/20 20:30 07/03/20 21:29 Cancel Vancomycin HCl 2 gm/Sodium Chloride 500 ml @ 250 mls/hr 1X ONCE IV 07/03/20 21:00 07/03/20 22:59 Cancel EKG: EKG: [] Radiology/Procedures: Radiology/Procedures: [] Course & Med Decision Making: Course & Med Decision Making Pertinent Labs and Imaging studies reviewed. (See chart for details) 35-year-old male, vital signs reviewed, presents to the emergency department for treatment of lower extremity infection. Physical examination consistent with bilateral lower extremity cellulitis with abscesses. Patient's oral temperature was elevated 102.1 related to patient's history, 600 mg clindamycin ordered, labs, normal saline. Patient's CBC unremarkable, upon reexamination of the patient, patient states he feels much better, oral temp was 100.0, discussed giving IV vancomycin, patient states he does not want this medication this time as he feels this infectious process is not near as bad as he has had in the past, discussed recommended admission to hospital related to lower extremity lymphangitis, the patient refused admission, patient states that he would like to obtain a prescription for p.o. Bactrim and trial this infectious process management at home. Patient states he will return to the emergency department if not getting better. Patient gave verbal understanding of discharge home instructions, follow-up with primary care, return to the emergency department precautions and concerns, patient had no further questions or concerns and was discharged home without incident. Nikita Disclaimer: Nikita Disclaimer: This electronic medical record was generated, in whole or in part, using a voice recognition dictation system. Departure Departure Impression: Primary Impression: Cellulitis Qualified Codes: L03.119 - Cellulitis of unspecified part of limb Additional Impression: Lymphangitis Disposition: 01 DC HOME SELF CARE/HOMELESS Condition: GOOD Referrals: NO PCP (PCP) Patient Instructions: Cellulitis Additional Instructions: Take medications as prescribed, see your primary care doctor for reevaluation of your lower extremity infections, return to the emergency department for worsening symptoms or other concerns. EMERGENCY DEPARTMENT GENERAL DISCHARGE INSTRUCTIONS Thank you for coming to [facility] Emergency Department (ED) today and trusting us with you care. We trust that you had a positive experience in our Emergency Department. If you wish to speak to the department management, you may call the Director at [phone]. YOUR FOLLOW UP INSTRUCTIONS ARE FOLLOWS: 1. Do you have a private Doctor? If you do not have a private doctor, please ask for a resource list of physicians or clinics that may be able to assist you with follow up care. 2. The Emergency Physicain has interpreted your x-rays. The X-Ray specialist will also review them. If there is a change in the findings, you will be notified in 48 hours when at all possible. 3. A lab test or culture has been done, your results will be reviewed and you will be notified if you need a change in treatment. ADDITIONAL INSTRUCTIONS AND INFORMATION: 1. Your care today has been supervised by a physician who is specially trained in emergency care. Many problems require more than one evaluation for a complete diagnosis and treatment. We recommend that you schedule your follow up appointment as recommended to ensure complete treatment of you illness or injury. If you are unable to obtain follow up care and continue to have a problem, or if your condition worsens, we recommend that you return to the ED. 2. We are not able to safely determine your condition over the phone nor are we able to give sound medical advice over the phone. For these safety reasons, if you call for medical advice we will ask you to come to the ED for further evaluation. 3. If you have any questions regarding these discharge instructions please call the ED at [phone]. SAFETY INFORMATION: In the interest of safety, wellness, and injury prevention; we encourage you to wear your sealbelt, if you smoke; quite smoking, and we encourage family to use a protective helmet for bicycling and other sporting events that present an increased risk for head injury. IF YOUR SYMPTOMS WORSEN OR NEW SYMPTOMS DEVELOP, OR YOU HAVE CONCERNS ABOUT YOUR CONDITION; OR IF YOUR CONDITION WORSENS WHILE YOU ARE WAITING FOR YOUR FOLLOW UP APPOINTMENT; EITHER CONTACT YOUR PRIMARY CARE DOCTOR, THE PHYSICIAN WHOSE NAME AND NUMBER YOU WERE GIVEN, OR RETURN TO THE ED IMMEDIATELY. Scripts Sulfamethoxazole/Trimethoprim (BACTRIM DS TABLET) 1 Each Tablet 1 TAB PO BID for LEG INFECTIONS for 10 Days, #20 TAB 0 Refills Prov: DANIEL MARS APRN 07/03/20 DANIEL MARS APRN Jul 03, 2020 18:12
[2020-07-03] MEDS ORDERED: ACETAMINOPHEN 500 MG TABLET PO ONE (18:15)
[2020-07-03] MEDS ORDERED: IV NORMAL SALINE 1000ML BAG 1,000 ML IV ONE (18:15)
[2020-07-03] MEDS ORDERED: CLINDAMYCIN 600MG PREMIX 50 ML IV ONE (19:00)
[2020-07-03 19:16] LABS: BASO % 0 % (0-3); EOS % 0 % (0-3); HEMATOCRIT 42.7 % (39.0-53.0); HEMOGLOBIN 14.8 g/dL (13.0-17.5); LYMPH # 0.9 x10^3/uL (1.0-4.8); LYMPH % 10 % (24-48); MEAN CORPUSCULAR HEMOGLOBIN 31 pg (25-35); MEAN CORPUSCULAR HGB CONC 35 g/dL (31-37); MEAN CORPUSCULAR VOLUME 90 fL (79-100); MONO # 0.9 x10^3/uL (0.0-1.1); MONO % 10 % (0-9); NEUT # 7.5 x10^3/uL (1.8-7.7); NEUT % 80 % (31-73); PLATELET COUNT 103 x10^3/uL (140-400); RED BLOOD COUNT 4.75 x10^6/uL (4.30-5.70); RED CELL DISTRIBUTION WIDTH 13.2 % (11.5-14.5); WHITE BLOOD COUNT 9.4 x10^3/uL (4.0-11.0)
[2020-07-03 19:37] LABS: CREATININE 1.1 mg/dL (0.7-1.3); GFR 75.3; POTASSIUM 4.2 mmol/L (3.5-5.1)
[2020-07-03 19:40] LABS: ALBUMIN 3.3 g/dL (3.4-5.0); ALBUMIN/GLOBULIN RATIO 0.9 (1.0-1.7); TOTAL PROTEIN 6.9 g/dL (6.4-8.2)
[2020-07-03] MEDS ORDERED: VANCOMYCIN 1GM IVPB FOR OMNI 250 ML IV ONE (20:30)
[2020-07-03] MEDS ORDERED: SULF1TAB24 PO (20:51)
[2020-07-03 21:00] VITALS: BP 103/55
[2020-07-03] MEDS ORDERED: VANCOMYCIN 2 GM in IV NORMAL SALINE 500ML BAG 500 ML IV ONE (21:00)
== END 2020-07-03 21:00 | disposition home or self-care (01) ==
LOC: ER 17:49
DX: L03.116 Cellulitis of left lower limb (principal); L03.115 Cellulitis of right lower limb; F17.200 Nicotine dependence, unspecified, uncomplicated; Z86.14 Personal history of Methicillin resistant Staphylococcus aureus infection; Z91.041 Radiographic dye allergy status
CPT/HCPCS: 36415; 80053; 83605; 85025; 87040; 96365; 99285; J3490; J7030

== ENCOUNTER 2020-09-07 20:59 | Emergency (ER) | payer SELFPAY ==
[~2020-09-07] VITALS: Ht 172.7 cm; Wt 90.9 kg
[2020-09-07 21:32] VITALS: BP 123/85
[2020-09-07] MEDS ORDERED: AMOX875T PO (21:50)
[2020-09-07] MEDS ORDERED: OFLO5DRO7 AD (21:50)
--- NOTE | 2020-09-07 21:50 | ED.ADGEN ---
Past Medical History Past Medical History: Hepatitis, Other Additional Past Medical Histor: MRSA (HAND & R CALF), HEP C, opiate addiction Past Surgical History: Appendectomy, Cholecystectomy, Tonsillectomy, Other Additional Past Surgical Histo: MRSA from Right calf debridement, HERNIA REPAIR Smoking Status: Current Every Day Smoker Alcohol Use: Occasionally Drug Use: Marijuana General Adult EDM: Chief Complaint: EARACHE/EAR PAIN HPI: HPI: Patient is a 35 year old male who presents emergency department with complaints of left ear pain for the last 2 days. Patient states that today his ear has been draining some purulent discharge. He denies any injury or trauma to his ear. Patient also complains of having sinus pressure and pain for the last 5 days. He denies any fever, cough, shortness of breath, wheezing, chest pain, palpitations, abdominal pain, nausea, vomiting, diarrhea, sore throat, or rash. Patient denies any frequency sneezing, itchy, watery eyes, or nasal drainage. He currently rates his pain a 10 out of 10 on the pain scale, he denies any alleviating factors. Review of Systems: Review of Systems: Complete ROS is negative unless otherwise noted in HPI. Allergies: Allergies: Allergies Coded Allergies Type Severity Reaction Last Updated Verified I S O L A T I O N *CONTACT* Allergy Unknown 10/26/18 Yes No Known Medication Allergies Allergy Unknown 10/26/18 Yes Physical Exam: PE: See Above Constitutional: Well developed, well nourished, no acute distress, non-toxic appearance, appears uncomfortable. [] HENT: Normocephalic, atraumatic, left external ear normal, left TM normal, oropharynx moist, nose normal; bilateral maxillary sinus tenderness to palpation with mild edema over the right maxillary area, erythema and with yellow drainage of the right external ear canal, right mastoid processes is nontender Eyes: PERRLA, EOMI, conjunctiva normal, no discharge. [] Neck: Normal range of motion, supple, nontender, no stridor. [] Cardiovascular:Heart rate regular rhythm Lungs & Thorax: Respirations even and unlabored, no retractions, no respiratory distress Skin: Warm, dry, no erythema, no rash. [] Extremities: No cyanosis, ROM intact, no edema. [] Neurologic: Alert and oriented X 3, no focal deficits noted. [] Psychologic: Affect normal, judgement normal, mood normal. [] Current Patient Data: Vital Signs: Vital Signs Date Time Temp Pulse Resp B/P (MAP) Pulse Ox O2 Delivery O2 Flow Rate FiO2 09/07/20 21:32 98.6 82 13 123/85 (98) 99 Room Air 98.6 EKG: EKG: [] Heart Score: C/O Chest Pain: No Risk Scores: Score 0 - 3: 2.5% MACE over next 6 weeks - Discharge Home Score 4 - 6: 20.3% MACE over next 6 weeks - Admit for Clinical Observation Score 7 - 10: 72.7% MACE over next 6 weeks - Early Invasive Strategies Radiology/Procedures: Radiology/Procedures: [] Course & Med Decision Making: Course & Med Decision Making Pertinent Labs and Imaging studies reviewed. (See chart for details) [] Dragon Disclaimer: Dragon Disclaimer: This electronic medical record was generated, in whole or in part, using a voice recognition dictation system. Departure Departure Impression: Primary Impression: Acute otitis externa of right ear Additional Impression: Maxillary sinusitis, acute Disposition: 01 HOME / SELF CARE / HOMELESS Condition: STABLE Referrals: NO PCP (PCP) Patient Instructions: Otitis Externa, [id number], Sinusitis, [id number] Additional Instructions: Fill the prescription(s) and use as directed. Alternate Tylenol and ibuprofen as needed for fever. Do not put anything in your ear. Follow-up with your primary care doctor in the next 1 to 2 days to have the ears rechecked return to the ER if symptoms worsen or if fever develops. [facility] [address] [place] [address] [facility] [address] [place] [address] [facility] [place] [address] [facility] [place] [address] [facility] [address] [place] [address] [facility] [address] [place] [address] [facility] [address] [place] [address] [facility] [address] [place] [address] [facility] [address] [place] [address] [facility] [address] [place] [address] [facility] [address] [place] [address] Scripts Ofloxacin (OFLOXACIN) 5 Ml Drops 5 DROP AD BID, #5 ML 0 Refills Prov: FROILAN RAMAN SYRUP MIXER 09/07/20 Amoxicillin (AMOXICILLIN) 875 Mg Tablet 1 TAB PO BID for 10 Days, #20 TAB 0 Refills Prov: FROILAN RAMAN APRN 09/07/20 Attending Signature Attending Signature I have participated in the care of this patient and I have reviewed and agree with all pertinent clinical information above including history, exam, and recommendations. Problem Qualifiers Primary Impression: Acute otitis externa of right ear Otitis externa type: unspecified type Qualified Codes: H60.501 - Unspecified acute noninfective otitis externa, right ear Additional Impression: Maxillary sinusitis, acute Recurrence: not specified as recurrent Qualified Codes: J01.00 - Acute maxillary sinusitis, unspecified FROILAN RAMAN APRN Sep 07, 2020 21:50 LONG CASTAÑEDA MD Sep 08, 2020 18:16
== END 2020-09-07 21:58 | disposition home or self-care (01) ==
LOC: ER 20:59
DX: H60.591 Other noninfective acute otitis externa, right ear (principal); J01.00 Acute maxillary sinusitis, unspecified; K73.9 Chronic hepatitis, unspecified; F12.90 Cannabis use, unspecified, uncomplicated; F17.200 Nicotine dependence, unspecified, uncomplicated; Z90.89 Acquired absence of other organs; Z90.49 Acquired absence of other specified parts of digestive tract; Z98.890 Other specified postprocedural states; Z86.14 Personal history of Methicillin resistant Staphylococcus aureus infection; Z88.8 Allergy status to other drugs, medicaments and biological substances
CPT/HCPCS: 99283

== ENCOUNTER 2021-08-03 18:28 | Emergency (ER) | payer SELFPAY ==
[~2021-08-03] VITALS: Ht 172.7 cm; Wt 77.0 kg
[~2021-08-03 18:28] MED LIST changes: +AMOX875T PO; +CLIN-94 PO; -CLIN300C9 PO; +OFLO5DRO7 AD
[2021-08-03 18:38] VITALS: BP 166/78
[2021-08-03] MEDS ORDERED: IBUP-1007 PO (18:51)
[2021-08-03] MEDS ORDERED: CLIN-94 PO (18:51)
[2021-08-03] MEDS ORDERED: HYDR-2761 PO (18:51)
--- NOTE | 2021-08-03 18:52 | PHYS DOC ---
Past Medical History Past Medical History: Hepatitis, Other Additional Past Medical Histor: MRSA (HAND & R CALF), HEP C, opiate addiction Past Surgical History: Appendectomy, Cholecystectomy, Tonsillectomy, Other Additional Past Surgical Histo: MRSA from Right calf debridement, HERNIA REPAIR Smoking Status: Current Every Day Smoker Alcohol Use: Occasionally Drug Use: Marijuana General Adult EDM: Chief Complaint: DENTAL PROBLEM HPI: HPI: Patient is a 36 year old male who presents with left back molar dental pain with some left lower facial swelling. He denies fever but rates his pain a 10 out of 10. States he does not currently have a dentist. Patient has a history of hep C, MRSA, opiate addiction, appendectomy, cholecystectomy, tonsillectomy and smoking. Review of Systems: Review of Systems: Constitutional: Denies fever or chills. [] Eyes: Denies change in visual acuity. [] HENT: Denies nasal congestion or sore throat. + Dental caries. + Dental abscess. + Dental pain [] Respiratory: Denies cough or shortness of breath. [] Cardiovascular: Denies chest pain or edema. [] GI: Denies abdominal pain, nausea, vomiting, bloody stools or diarrhea. [] : Denies dysuria. [] Musculoskeletal: Denies back pain or joint pain. [] Integument: Denies rash. [] Neurologic: Denies headache, focal weakness or sensory changes. [] Endocrine: Denies polyuria or polydipsia. [] Lymphatic: Denies swollen glands. [] Psychiatric: Denies depression or anxiety. [] Heart Score: C/O Chest Pain: No Allergies: Allergies: Allergies Coded Allergies Type Severity Reaction Last Updated Verified I S O L A T I O N *CONTACT* Allergy Unknown 10/26/18 Yes No Known Medication Allergies Allergy Unknown 10/26/18 Yes Physical Exam: PE: Constitutional: Well developed, well nourished, no acute distress, non-toxic appearance. [] HENT: Normocephalic, atraumatic, bilateral external ears normal, oropharynx moist, no oral exudates, nose normal. Many dental caries with a left broken molar dental carry abscess. [] Eyes: PERRLA, EOMI, conjunctiva normal, no discharge. [] Neck: Normal range of motion, no tenderness, supple, no stridor. [] Cardiovascular:Heart rate regular rhythm, no murmur [] Lungs & Thorax: Bilateral breath sounds clear to auscultation [] Abdomen: Bowel sounds normal, soft, no tenderness, no masses, no pulsatile masses. [] Skin: Warm, dry, no erythema, no rash. [] Back: No tenderness, no CVA tenderness. [] Extremities: No tenderness, no cyanosis, no clubbing, ROM intact, no edema. [] Neurologic: Alert and oriented X 3, normal motor function, normal sensory function, no focal deficits noted. [] Psychologic: Affect normal, judgement normal, mood normal. [] Current Patient Data: Vital Signs: Vital Signs Date Time Temp Pulse Resp B/P (MAP) Pulse Ox O2 Delivery O2 Flow Rate FiO2 08/03/21 18:38 98.4 120 16 166/78 (107) 97 Room Air 98.4 EKG: EKG: [] Radiology/Procedures: Radiology/Procedures: [] Course & Med Decision Making: Course & Med Decision Making Pertinent Labs and Imaging studies reviewed. (See chart for details) See HPI. Alert oriented x4. Ambulatory steady gait. Speaks in full clear sentences. Skin pink warm and dry. Left-sided lower facial swelling 1+ with left back molar dental carry. Gumline redness. No trismus. He can open his mouth open wide. He can fully stick out his tongue. There is no pain under his tongue. [] Dragon Disclaimer: Dragdede Disclaimer: This electronic medical record was generated, in whole or in part, using a voice recognition dictation system. Departure Departure Impression: Primary Impression: Infected dental caries Disposition: HOME / SELF CARE / HOMELESS Condition: STABLE Referrals: NO PCP (PCP) Patient Instructions: Dental Abscess, Dental Caries Additional Instructions: Follow-up with a dentist as soon as possible. Take medication as prescribed and with food. Scripts Clindamycin Hcl (CLINDAMYCIN HCL) 300 Mg Capsule 1 CAP PO TID, #30 CAP Prov: DELVIN RENTERIA [employer]ARM INSTALLER 08/03/21 Ibuprofen (IBUPROFEN) 600 Mg Tablet 600 MG PO PRN Q6HRS PRN for INFLAMMATION, #30 TAB Prov: DELVIN RENTERIA [employer] ALARM INST[employer]ER 08/03/21 Hydrocodone Bit/Acetaminophen (HYDROCODONE-APAP 5-325 ) 1 Tab Tablet 1 TAB PO PRN Q6HRS PRN for PAIN, #5 TAB 0 Refills Prov: DELVIN RENTERIA APRN 08/03/21 DELVIN RENTERIA APRN Aug 03, 2021 18:52
== END 2021-08-03 19:00 | disposition home or self-care (01) ==
LOC: ER 18:28
DX: K04.7 Periapical abscess without sinus (principal); F17.200 Nicotine dependence, unspecified, uncomplicated; Z86.14 Personal history of Methicillin resistant Staphylococcus aureus infection; Z91.041 Radiographic dye allergy status
CPT/HCPCS: 99283

== ENCOUNTER 2021-08-06 17:01 | Emergency (ER) | payer SELFPAY ==
[~2021-08-06] VITALS: Ht 172.7 cm; Wt 78.0 kg
[~2021-08-06 17:01] MED LIST changes: +HYDR-2761 PO; +IBUP-1007 PO
[2021-08-06] MEDS ORDERED: PIPERACILLIN/TAZOBACTAM 4.5 GM in IV NORMAL SALINE 100ML 100 ML IV ONE (17:30)
[2021-08-06] MEDS ORDERED: VANCOMYCIN PER PHARMACY MC ONE (17:30)
[2021-08-06] MEDS ORDERED: IV NORMAL SALINE 1000ML BAG 1,000 ML IV SCH (17:30)
[2021-08-06] MEDS ORDERED: MORPHINE SULFATE 4 MG/ML INJ. IV/SQ PRN (17:30)
[2021-08-06] MEDS ORDERED: VANCOMYCIN 2 GM in IV NORMAL SALINE 500ML BAG 500 ML IV SCH (18:30)
[2021-08-06] MEDS ORDERED: PIPERACILLIN/TAZOBACTAM 4.5 GM in IV DEXTROSE 5% 100ML 100 ML IV ONE (19:00)
[2021-08-06 19:06] LABS: BASO # 0.1 x10^3/uL (0.0-0.2); BASO % 1 % (0-3); EOS # 0.2 x10^3/uL (0.0-0.7); EOS % 3 % (0-3); HEMATOCRIT 43.8 % (39.0-53.0); HEMOGLOBIN 14.9 g/dL (13.0-17.5); LYMPH # 2.5 x10^3/uL (1.0-4.8); LYMPH % 33 % (24-48); MEAN CORPUSCULAR HEMOGLOBIN 31 pg (25-35); MEAN CORPUSCULAR HGB CONC 34 g/dL (31-37); MEAN CORPUSCULAR VOLUME 91 fL (79-100); MONO # 0.7 x10^3/uL (0.0-1.1); MONO % 9 % (0-9); NEUT # 4.2 x10^3/uL (1.8-7.7); NEUT % 54 % (31-73); PLATELET COUNT 205 x10^3/uL (140-400); RED BLOOD COUNT 4.83 x10^6/uL (4.30-5.70); RED CELL DISTRIBUTION WIDTH 13.3 % (11.5-14.5); WHITE BLOOD COUNT 7.7 x10^3/uL (4.0-11.0)
[2021-08-06 19:23] LABS: CALCIUM 8.7 mg/dL (8.5-10.1); CREATININE 0.9 mg/dL (0.7-1.3); GFR 94.4; POTASSIUM 4.2 mmol/L (3.5-5.1)
[2021-08-06 19:29] LABS: ALBUMIN 3.4 g/dL (3.4-5.0); TOTAL BILIRUBIN 0.8 mg/dL (0.2-1.0); TOTAL PROTEIN 6.9 g/dL (6.4-8.2)
--- NOTE | 2021-08-06 19:31 | RAD ---
EXAMINATION: CT MAXILLOFACIAL WITHOUT CONTRAST CLINICAL HISTORY: Dental abscess. Technique: Spiral high resolution axial unenhanced images were obtained through the facial bones with sagittal and coronal planar reconstructions. CT Dose Reduction Employed: One or more of the following individualized dose reduction techniques wer e utilized for this examination: 1. Automated exposure control 2. Adjustment of the mA and/or kV ac cording to patient size 3. Use of iterative reconstruction technique. COMPARISON: None FINDINGS: Soft Tissues: Left facial soft tissue swelling. No definite organized collection or evidence of absce ss on noncontrast evaluation. Facial Bones: No evidence of acute facial bone fracture. Orbits: No evidence of acute orbital fracture. Globes are intact. Soft tissue planes of the orbits ma intained. Paranasal Sinuses: Small mucous retention cysts/polyps in the maxillary sinuses. Other: Multiple dental caries and associated small periapical cysts, predominantly on the left and in volving both the maxilla and mandible. IMPRESSION: Multiple dental caries and associated small periapical cysts as described. Left-sided facial soft tissue swelling without evidence of abscess on limited noncontrast evaluation. Electronically signed by: Singh Gregory DO (08/06/2021 7:29 PM) EBEN
--- NOTE | 2021-08-06 19:34 | PHYS DOC ---
Past Medical History Past Medical History: Hepatitis, Other Additional Past Medical Histor: MRSA (HAND & R CALF), HEP C, opiate addiction Past Surgical History: Appendectomy, Cholecystectomy, Tonsillectomy, Other Additional Past Surgical Histo: HERNIA Smoking Status: Current Every Day Smoker Alcohol Use: None Drug Use: Marijuana General Adult EDM: Chief Complaint: FACE PROBLEM HPI: HPI: Patient is a 36 year old male who presents to the ED today complaining of 10 out of 10 left-sided dental pain as well as facial swelling, symptoms began 4 days ago and got worse today. Patient states he was seen in the ED 3 days ago and was started on clindamycin. He states symptoms are getting worse. Denies any fever. Review of Systems: Review of Systems: Constitutional: Denies fever or chills. [] HENT: Reports dental pain and swelling Respiratory: Denies cough or shortness of breath. [] Cardiovascular: Denies chest pain or edema. [] GI: Denies abdominal pain, nausea, vomiting, bloody stools or diarrhea. [] Musculoskeletal: Denies back pain or joint pain. [] Integument: Denies rash. [] Neurologic: Denies headache, focal weakness or sensory changes. [] Psychiatric: Denies depression or anxiety. [] Heart Score: C/O Chest Pain: N/A Risk Factors: Risk Factors: DM, Current or recent (<one month) smoker, HTN, HLP, family history of CAD, obesity. Risk Scores: Score 0 - 3: 2.5% MACE over next 6 weeks - Discharge Home Score 4 - 6: 20.3% MACE over next 6 weeks - Admit for Clinical Observation Score 7 - 10: 72.7% MACE over next 6 weeks - Early Invasive Strategies Current Medications: Current Medications Medications (Trade) Dose Ordered Sig/John Start Time Stop Time Status Last Admin Dose Admin Morphine Sulfate (Morphine Sulfate) 4 mg PRN Q15MIN PRN 08/06/21 17:30 08/07/21 17:29 08/06/21 18:47 4 MG Piperacillin Sod/ Tazobactam Sod 4.5 gm/Dextrose 100 ml @ 200 mls/hr 1X ONCE 08/06/21 19:00 08/06/21 19:29 DC 08/06/21 19:05 200 MLS/HR Piperacillin Sod/ Tazobactam Sod 4.5 gm/Sodium Chloride 100 ml @ 200 mls/hr 1X ONCE 08/06/21 17:30 08/06/21 17:59 Cancel Sodium Chloride 1,000 ml @ 2,040 mls/hr Q30M 08/06/21 17:30 08/06/21 18:28 DC 08/06/21 18:42 2,040 MLS/HR Vancomycin HCl (Vanco Per Pharmacy) 1 each 1X ONCE 08/06/21 17:30 08/06/21 17:31 UNV Vancomycin HCl 2 gm/Sodium Chloride 500 ml @ 250 mls/hr Q24H 08/06/21 18:30 Allergies: Allergies: Allergies Coded Allergies Type Severity Reaction Last Updated Verified I S O L A T I O N *CONTACT* Allergy Unknown 08/06/21 Yes No Known Medication Allergies Allergy Unknown 08/06/21 Yes Physical Exam: PE: Constitutional: Well developed, well nourished, no acute distress, non-toxic appearance. [] HENT: Normocephalic, atraumatic, bilateral external ears normal, oropharynx moist, no oral exudates, nose normal. [] Moderate swelling noted on the left jaw. Infected dental caries noted throughout. Gum erythema noted on the left Eyes: PERRLA, EOMI, conjunctiva normal, no discharge. [] Neck: Normal range of motion, no tenderness, supple, no stridor. [] Cardiovascular:Heart rate regular rhythm, no murmur [] Lungs & Thorax: Bilateral breath sounds clear to auscultation [] Abdomen: Bowel sounds normal, soft, no tenderness, no masses, no pulsatile masses. [] Skin: Warm, dry, no erythema, no rash. [] Back: No tenderness, no CVA tenderness. [] Extremities: No tenderness, no cyanosis, no clubbing, ROM intact, no edema. [] Neurologic: Alert and oriented X 3, normal motor function, normal sensory function, no focal deficits noted. [] Psychologic: Affect normal, judgement normal, mood normal. [] Current Patient Data: Labs: Laboratory Tests Test 08/06/21 18:55 White Blood Count 7.7 x10^3/uL (4.0-11.0) Red Blood Count 4.83 x10^6/uL (4.30-5.70) Hemoglobin 14.9 g/dL (13.0-17.5) Hematocrit 43.8 % (39.0-53.0) Mean Corpuscular Volume 91 fL (79-100) Mean Corpuscular Hemoglobin 31 pg (25-35) Mean Corpuscular Hemoglobin Concent 34 g/dL (31-37) Red Cell Distribution Width 13.3 % (11.5-14.5) Platelet Count 205 x10^3/uL (140-400) Neutrophils (%) (Auto) 54 % (31-73) Lymphocytes (%) (Auto) 33 % (24-48) Monocytes (%) (Auto) 9 % (0-9) Eosinophils (%) (Auto) 3 % (0-3) Basophils (%) (Auto) 1 % (0-3) Neutrophils # (Auto) 4.2 x10^3/uL (1.8-7.7) Lymphocytes # (Auto) 2.5 x10^3/uL (1.0-4.8) Monocytes # (Auto) 0.7 x10^3/uL (0.0-1.1) Eosinophils # (Auto) 0.2 x10^3/uL (0.0-0.7) Basophils # (Auto) 0.1 x10^3/uL (0.0-0.2) Sodium Level 139 mmol/L (136-145) Potassium Level 4.2 mmol/L (3.5-5.1) Chloride Level 102 mmol/L (98-107) Carbon Dioxide Level 28 mmol/L (21-32) Anion Gap 9 (6-14) Blood Urea Nitrogen 10 mg/dL (8-26) Creatinine 0.9 mg/dL (0.7-1.3) Estimated GFR (Cockcroft-Gault) 94.4 BUN/Creatinine Ratio 11 (6-20) Glucose Level 90 mg/dL (70-99) Calcium Level 8.7 mg/dL (8.5-10.1) Total Bilirubin 0.8 mg/dL (0.2-1.0) Aspartate Amino Transferase (AST) 32 U/L (15-37) Alanine Aminotransferase (ALT) 65 U/L (16-63) H Alkaline Phosphatase 99 U/L (46-116) Total Protein 6.9 g/dL (6.4-8.2) Albumin 3.4 g/dL (3.4-5.0) Albumin/Globulin Ratio 1.0 (1.0-1.7) Laboratory Tests 08/06/21 18:55 Laboratory Tests 08/06/21 18:55 Vital Signs: Vital Signs Date Time Temp Pulse Resp B/P (MAP) Pulse Ox O2 Delivery O2 Flow Rate FiO2 08/06/21 18:47 16 99 Room Air 08/06/21 17:04 97.8 106 145/99 (114) 97.8 EKG: EKG: [] Radiology/Procedures: Radiology/Procedures: []PROCEDURE: CT MAXILLOFACIAL WO CONTRAST EXAMINATION: CT MAXILLOFACIAL WITHOUT CONTRAST CLINICAL HISTORY: Dental abscess. Technique: Spiral high resolution axial unenhanced images were obtained through the facial bones with sagittal and coronal planar reconstructions. CT Dose Reduction Employed: One or more of the following individualized dose reduction techniques were utilized for this examination: 1. Automated exposure control 2. Adjustment of the mA and/or kV according to patient size 3. Use of iterative reconstruction technique. COMPARISON: None FINDINGS: Soft Tissues: Left facial soft tissue swelling. No definite organized collection or evidence of abscess on noncontrast evaluation. Facial Bones: No evidence of acute facial bone fracture. Orbits: No evidence of acute orbital fracture. Globes are intact. Soft tissue planes of the orbits maintained. Paranasal Sinuses: Small mucous retention cysts/polyps in the maxillary sinuses. Other: Multiple dental caries and associated small periapical cysts, predominantly on the left and involving both the maxilla and mandible. IMPRESSION: Multiple dental caries and associated small periapical cysts as described. Left-sided facial soft tissue swelling without evidence of abscess on limited noncontrast evaluation. Electronically signed by: Singh Day DO (08/06/2021 7:29 PM) [facility] DICTATED and SIGNED BY: SINGH DAY DO DATE: 08/06/211920 Course & Med Decision Making: Course & Med Decision Making Pertinent Labs and Imaging studies reviewed. (See chart for details) This is a 36-year-old male patient presenting to the ED today with left sided facial swelling from dental infection. He was in the ED 3 days ago and was started on clindamycin. Patient states symptoms of gotten worse. No fever. Patient was a very difficult IV stick, IJ was done by one of the nurses. CBC, CMP, lactic-negative. CT of maxillofacial noted for multiple dental caries and associated small periapical cysts. Left-sided facial soft tissue swelling without evidence of a bscess He was given Zosyn and vancomycin in the ED. He is currently eating his dinner. Was discharged on Augmentin and instructed to stop clindamycin. Emphasized to this patient the importance of seeing a dentist in the next 7 to 14 days. Nikita Disclaimer: Dragon Disclaimer: This electronic medical record was generated, in whole or in part, using a voice recognition dictation system. Departure Departure Impression: Primary Impression: Dentalgia Additional Impression: Infected dental caries Disposition: HOME / SELF CARE / HOMELESS Condition: STABLE Referrals: NO PCP (PCP) follow up with your dentist as soon as you can Patient Instructions: Dental Caries Additional Instructions: You were seen for dental infection. We highly recommend you see a dentist in the next 7 to 14 days. Please stop taking clindamycin and start taking Augmentin. Ensure you complete this medicine. Scripts Amoxicillin/Potassium Clav (AMOX TR-K CLV 875-125 MG TAB) 1 Each Tablet 1 TAB PO BID, #20 TAB Prov: SOFY CESPEDES APRN 08/06/21 SOFY CESPEDES APRN Aug 06, 2021 19:34
--- NOTE | 2021-08-06 21:07 | NUR ---
Pharmacy Vancomycin Dosing Note S:Consulted to monitor and dose vancomycin started 08/06/21. O:RICHAR CASPER is a 36 year old M with Cellulitis . Height: 5 feet, 8 inches Weight: 78.0 kg [place] Body Weight: 68.40 Adjusted Body Weight: 72.24 Dosing Weight: Actual Other Antibiotics: ZOSYN 4.5GM x1 LABS: Last BUN: 10 Last Creatinine: 0.9 Creatinine Clearance: 93 mL/min Last WBC: 7.7 Last Procalcitonin: Tmax (past 24 hours): 97.8 Microbiology: I/O: Drug Levels: Last level: on at Last dose given 08/06/21 at 1956 Vancomycin Dosing: Loading Dose: 2000 mg x1 Dosing Weight: Actual Target Trough: 10-20 A: Based on weight and est. CrCl: P: 1. Vancomycin 2000mg, followed by Vancomycin 1250 mg IV q12h. 2. Follow up Trough level on 08/08/21 at 0730. 3. Pharmacy will continue to monitor, follow and adjust therapy as needed. Khris Ortiz [facility], 08/06/21 1457
[2021-08-06 21:33] VITALS: BP 122/78
[2021-08-06] MEDS ORDERED: AMOX1TAB11 PO (21:40)
[2021-08-07] MEDS ORDERED: VANCOMYCIN 1.25 GM in IV NORMAL SALINE 250ML 250 ML IV SCH (08:00)
== END 2021-08-06 22:10 | disposition home or self-care (01) ==
LOC: ER 17:01
DX: K04.7 Periapical abscess without sinus (principal); F17.200 Nicotine dependence, unspecified, uncomplicated; Z86.14 Personal history of Methicillin resistant Staphylococcus aureus infection
CPT/HCPCS: 36415; 70486; 80053; 83605; 85025; 87040; 96365; 96366; 96367; 96375; 99285; J2270; J2543; J3370; J7030; J7040; J7060; 96361